=== PATIENT | male | born 1960 | race Caucasian/White ===

== ENCOUNTER 2020-04-16 14:15 | Outpatient (CLI) | payer OTHER, SELFPAY ==
[2020-04-16 14:32] LABS: Basophils Absolute Auto 0.08 K/mm3 (0.00-0.10); Basophils Percent Auto 1.2 % (0.0-1.0); Eosinophils Absolute Auto 0.26 K/mm3 (0.02-0.50); Eosinophils Percent Auto 3.9 % (1.0-6.0); Hematocrit 43.9 % (40.0-54.0); Hemoglobin 14.4 g/dL (14.0-18.0); Immature Granulocyte Absolute 0.03 K/mm3 (0.00-0.00); Immature Granulocyte Percent A 0.4 % (0.0-0.0); Lymphocytes Absolute Auto 1.13 K/mm3 (1.10-4.50); Lymphocytes Percent Auto 16.8 % (18.0-42.0); Mean Corpuscular HGB Conc 32.8 g/dL (32.0-36.0); Mean Corpuscular Hemoglobin 31.7 pg (27.0-31.0); Mean Corpuscular Volume 96.7 fL (78.0-102.0); Mean Platelet Volume 11.7 fl (8.7-11.0); Monocytes Absolute Auto 0.62 K/mm3 (0.10-0.90); Monocytes Percent Auto 9.2 % (2.0-11.0); Neutrophils Absolute Auto 4.6 K/mm3 (1.7-7.2); Neutrophils Percent Auto 68.5 % (50.0-70.0); Platelet Count Result 155 K/mm3 (150-420); Red Blood Count 4.54 M/mm3 (4.70-6.10); Red Cell Distribution Width 13.2 % (11.6-14.4); White Blood Count 6.7 K/mm3 (4.8-10.8)
[2020-04-16 14:34] LABS: Add Urine Microscopic? YES; Bilirubin Urine Negative (Negative); Blood Urine Negative (Negative); Color Urine Yellow (Yellow); Glucose Urine UA Negative (Negative); Ketones Urine Negative (Negative); Leukocyte Esterase Ur 1+ LEU/UL (Negative); Nitrate Urine Positive (Negative); Protein Urine 2+ (Negative); Specific Grav Ur >= 1.030 (1.010-1.020); Urobilinogen Urine 0.2 mg/dL (0.2-1.0); pH Urine 5.5 (5.0-8.0)
[2020-04-16 14:41] LABS: Appearance Urine Sl Cloudy (Clear); RBC Urine None seen /hpf (0-2); Squamous Epithelial Cell Urine Few /hpf (Few)
[2020-04-16 14:42] LABS: Bacteria Urine 1+ /hpf
[2020-04-16 14:49] LABS: Creatinine Urine 244.78 mg/dL (40-278)
[2020-04-16 14:50] LABS: Microalbumin Urine Random 386.9 mg/L
[2020-04-16 15:28] LABS: Alanine Aminotransferase 49 U/L (16-63); Albumin Level 3.4 g/dL (3.4-5.0); Alkaline Phosphatase 90 U/L (46-116); Bilirubin,Total 0.6 mg/dL (0.00-1.00); Blood Urea Nitrogen 28 mg/dL (7-18); Calcium 8.8 mg/dL (8.5-10.1); Carbon Dioxide 25 mmol/L (21-32); Chloride 108 mmol/L (98-108); Estimated Glomerular Filt Rate 39; Glucose 91 mg/dL (70-99); Osmolality Calculated 297 mOsm/kg (285-295); Phosphorus 3.6 mg/dL (2.6-4.7); Prostate Specific Antigen 0.5 ng/mL (< OR = 4.0); Sodium 141 mmol/L (136-145); Thyroid Stimulating Hormone 1.41 uIU/mL (0.36-3.74)
[2020-04-16 16:08] LABS: Anion Gap 12.9 mmol/L (7-16); Aspartate Amino Transferase 37 U/L (15-37); Potassium 4.9 mmol/L (3.5-5.1)
[2020-04-22 14:49] LABS: Parathyroid Intact 69 pg/mL (14-64)
== END 2020-04-16 14:16 | disposition home or self-care (01) ==
LOC: CHSLAB 14:19
PROVIDERS: PCP Family Medicine; Visit Provider Family Medicine
DX: N18.9 Chronic kidney disease, unspecified (principal); I12.9 Hypertensive chronic kidney disease with stage 1 through stage 4 chronic kidney disease, or unspecified chronic kidney disease; Z12.5 Encounter for screening for malignant neoplasm of prostate; E11.21 Type 2 diabetes mellitus with diabetic nephropathy
CPT/HCPCS: 36415; 80053; 81001; 82043; 83036; 83970; 84100; 84153; 84443; 85025; 87077; 87086; 87088; 87186; G0103

== ENCOUNTER 2020-06-05 10:24 | Outpatient (CLI) | payer OTHER, SELFPAY ==
--- NOTE | ~2020-06-05 | US_ITS ---
EXAMINATION: US venous doppler LE EXAM DATE: 06/05/2020 12:52 INDICATION: Right calf pain. TECHNIQUE: Multiple grayscale, color flow and Doppler images of the lower extremity deep venous syste ms bilaterally were obtained and reviewed. There is no prior study for comparison. FINDINGS: Right side: The right common femoral, femoral and profunda veins demonstrate normal color flow, respi ratory variation, augmentation and compressibility. Compressibility, color flow confirmed within the right popliteal, posterior tibial, peroneal, and greater saphenous veins. Left side: The left common femoral, femoral and profunda veins demonstrate normal color flow, respira tory variation, augmentation and compressibility. Compressibility, color flow confirmed within the l eft popliteal, posterior tibial, peroneal, and greater saphenous veins. IMPRESSION: 1. No lower extremity deep venous thrombosis bilaterally. Reviewed, dictated and finalized at location A.
[2020-06-05 10:34] LABS: Basophils Absolute Auto 0.06 K/mm3 (0.00-0.10); Basophils Percent Auto 0.8 % (0.0-1.0); Eosinophils Absolute Auto 0.22 K/mm3 (0.02-0.50); Eosinophils Percent Auto 2.9 % (1.0-6.0); Hematocrit 44.5 % (40.0-54.0); Hemoglobin 14.2 g/dL (14.0-18.0); Immature Granulocyte Absolute 0.05 K/mm3 (0.00-0.00); Immature Granulocyte Percent A 0.7 % (0.0-0.0); Lymphocytes Absolute Auto 0.92 K/mm3 (1.10-4.50); Lymphocytes Percent Auto 12.2 % (18.0-42.0); Mean Corpuscular HGB Conc 31.9 g/dL (32.0-36.0); Mean Corpuscular Hemoglobin 31.2 pg (27.0-31.0); Mean Corpuscular Volume 97.8 fL (78.0-102.0); Mean Platelet Volume 11.9 fl (8.7-11.0); Monocytes Absolute Auto 0.86 K/mm3 (0.10-0.90); Monocytes Percent Auto 11.4 % (2.0-11.0); Neutrophils Absolute Auto 5.4 K/mm3 (1.7-7.2); Platelet Count Result 159 K/mm3 (150-420); Red Blood Count 4.55 M/mm3 (4.70-6.10); Red Cell Distribution Width 13.3 % (11.6-14.4); White Blood Count 7.5 K/mm3 (4.8-10.8)
[2020-06-05 10:50] LABS: Alanine Aminotransferase 34 U/L (16-63); Albumin Level 3.5 g/dL (3.4-5.0); Alkaline Phosphatase 95 U/L (46-116); Anion Gap 8 mmol/L (8-16); Aspartate Amino Transferase 24 U/L (15-37); Bilirubin,Total 0.7 mg/dL (0.00-1.00); Blood Urea Nitrogen 29 mg/dL (7-18); Calcium 8.8 mg/dL (8.5-10.1); Carbon Dioxide 27 mmol/L (21-32); Chloride 106 mmol/L (98-108); Estimated Glomerular Filt Rate 34; Glucose 111 mg/dL (70-99); Osmolality Calculated 298 mOsm/kg (285-295); Potassium 4.5 mmol/L (3.5-5.1); Sodium 141 mmol/L (136-145); Total Protein 7.9 g/dL (6.4-8.2)
[2020-06-05 11:08] LABS: D Dimer 1.49 mg/L (0.19-0.50)
== END 2020-06-05 10:25 | disposition home or self-care (01) ==
PROVIDERS: PCP Family Medicine; Visit Provider Family Medicine
DX: M79.661 Pain in right lower leg (principal); R60.0 Localized edema; I10 Essential (primary) hypertension
CPT/HCPCS: 36415; 80053; 85025; 85380; 93970

== ENCOUNTER 2020-08-24 13:37 | Outpatient (CLI) | payer OTHER, SELFPAY ==
[2020-08-24 13:56] LABS: Basophils Absolute Auto 0.02 K/mm3 (0.00-0.10); Basophils Percent Auto 0.4 % (0.0-1.0); Eosinophils Absolute Auto 0.19 K/mm3 (0.02-0.50); Eosinophils Percent Auto 3.4 % (1.0-6.0); Hematocrit 41.4 % (40.0-54.0); Immature Granulocyte Absolute 0.03 K/mm3 (0.00-0.00); Immature Granulocyte Percent A 0.5 % (0.0-0.0); Immature Platelet Fraction Pct 3.8 % (1.0-7.0); Lymphocytes Absolute Auto 0.74 K/mm3 (1.10-4.50); Lymphocytes Percent Auto 13.3 % (18.0-42.0); Mean Corpuscular HGB Conc 31.4 g/dL (32.0-36.0); Mean Corpuscular Volume 98.6 fL (78.0-102.0); Mean Platelet Volume 11.6 fl (8.7-11.0); Monocytes Percent Auto 10.8 % (2.0-11.0); Neutrophils Percent Auto 71.6 % (50.0-70.0); Platelet Count Result 129 K/mm3 (150-420); White Blood Count 5.6 K/mm3 (4.8-10.8)
[2020-08-24 14:08] LABS: Alanine Aminotransferase 50 U/L (16-63); Albumin Level 3.1 g/dL (3.4-5.0); Alkaline Phosphatase 75 U/L (46-116); Anion Gap 9 mmol/L (8-16); Aspartate Amino Transferase 34 U/L (15-37); Bilirubin,Total 0.5 mg/dL (0.00-1.00); Blood Urea Nitrogen 32 mg/dL (7-18); Calcium 8.7 mg/dL (8.5-10.1); Carbon Dioxide 25 mmol/L (21-32); Chloride 108 mmol/L (98-108); Estimated Glomerular Filt Rate 35; Glucose 87 mg/dL (70-99); Osmolality Calculated 299 mOsm/kg (285-295); Potassium 4.6 mmol/L (3.5-5.1); Sodium 142 mmol/L (136-145); Total Protein 7.1 g/dL (6.4-8.2)
[2020-08-24 14:10] LABS: D Dimer 1.22 mg/L (0.19-0.50)
[2020-08-24 15:21] LABS: Hemoglobin A1C 6.2 % (<5.7)
== END 2020-08-24 13:38 | disposition home or self-care (01) ==
PROVIDERS: PCP Family Medicine; Visit Provider Family Medicine
DX: M79.661 Pain in right lower leg (principal); I10 Essential (primary) hypertension; R60.0 Localized edema; E11.40 Type 2 diabetes mellitus with diabetic neuropathy, unspecified
CPT/HCPCS: 36415; 80053; 83036; 85025; 85055; 85380

== ENCOUNTER 2020-08-25 08:36 | Outpatient (CLI) | payer OTHER, SELFPAY ==
--- NOTE | ~2020-08-25 | US_ITS ---
EXAMINATION: US venous doppler [facility] DATE: 08/25/2020 09:07 INDICATION: Lower limb pain and swelling TECHNIQUE: Grayscale ultrasound images without and with compression and Doppler ultrasound images of the bilateral lower extremity veins were obtained. COMPARISON: None. FINDINGS: The visualized portions of right common femoral vein, profunda (deep) femoral vein, femoral vein, pop liteal vein, posterior tibial veins, peroneal veins, gastrocnemius vein and greater saphenous vein ou tflow are patent. The visualized portions of left common femoral vein, profunda femoral vein, femoral vein, popliteal v ein, posterior tibial veins, peroneal veins, gastrocnemius vein and greater saphenous vein outflow ar e patent. IMPRESSION: 1. No deep venous thrombosis in either lower limb. Reviewed, dictated and finalized at location A. 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
== END 2020-08-25 08:37 | disposition home or self-care (01) ==
PROVIDERS: PCP Family Medicine; Visit Provider Family Medicine
DX: M79.605 Pain in left leg (principal); M79.604 Pain in right leg
CPT/HCPCS: 93970

== ENCOUNTER 2020-09-04 11:47 | Outpatient (CLI) | payer OTHER, SELFPAY ==
[2020-09-04 12:15] LABS: Basophils Absolute Auto 0.03 K/mm3 (0.00-0.10); Basophils Percent Auto 0.6 % (0.0-1.0); Eosinophils Absolute Auto 0.19 K/mm3 (0.02-0.50); Eosinophils Percent Auto 3.8 % (1.0-6.0); Hematocrit 41.3 % (40.0-54.0); Hemoglobin 13.1 g/dL (14.0-18.0); Immature Granulocyte Absolute 0.04 K/mm3 (0.00-0.00); Immature Granulocyte Percent A 0.8 % (0.0-0.0); Mean Corpuscular HGB Conc 31.7 g/dL (32.0-36.0); Mean Corpuscular Volume 97.9 fL (78.0-102.0); Mean Platelet Volume 11.3 fl (8.7-11.0); Monocytes Absolute Auto 0.63 K/mm3 (0.10-0.90); Monocytes Percent Auto 12.6 % (2.0-11.0); Neutrophils Absolute Auto 3.2 K/mm3 (1.7-7.2); Neutrophils Percent Auto 64.2 % (50.0-70.0); Platelet Count Result 178 K/mm3 (150-420); Red Blood Count 4.22 M/mm3 (4.70-6.10); Red Cell Distribution Width 13.7 % (11.6-14.4)
--- NOTE | 2020-09-04 12:30 | ECG_ITS ---
Measurements Intervals [place] Rate: 75 P: 53 ME: 183 QRS: 111 QRSD: 110 T: 48 QT: 391 QTc: 437 Interpretive Statements SINUS RHYTHM INTRAVENTRICULAR CONDUCTION DELAY LOW QRS VOLTAGE IN PRECORDIAL LEADS ANTEROSEPTAL INFARCT, AGE INDETERMINATE HIGH LATERAL INFARCT, AGE INDETERMINATE ABNORMAL ECG Electronically Signed On 09-04-2020 13:00:36 [employer] by Victor Manuel Penn D.O.
[2020-09-04 13:16] LABS: Hemoglobin A1C 5.8 % (<5.7)
[2020-09-04 14:11] LABS: Alanine Aminotransferase 51 U/L (16-63); Albumin Level 3.3 g/dL (3.4-5.0); Alkaline Phosphatase 92 U/L (46-116); Anion Gap 6 mmol/L (8-16); Aspartate Amino Transferase 33 U/L (15-37); Bilirubin,Total 0.5 mg/dL (0.00-1.00); Blood Urea Nitrogen 26 mg/dL (7-18); Calcium 8.8 mg/dL (8.5-10.1); Carbon Dioxide 26 mmol/L (21-32); Chloride 108 mmol/L (98-108); Cholesterol 136 mg/dL (0-200); Estimated Glomerular Filt Rate 39; Ferritin 159 ng/mL (26-388); Glucose 99 mg/dL (70-99); HDL Direct 49 mg/dL (40-60); Iron 89 ug/dL (65-175); LDL Cholesterol Calculated 65 mg/dL (<130); Osmolality Calculated 294 mOsm/kg (285-295); Percent Iron Saturation 28 % (12-57); Potassium 5.2 mmol/L (3.5-5.1); Sodium 140 mmol/L (136-145); Thyroid Stimulating Hormone 1.75 uIU/mL (0.36-3.74); Total Protein 6.8 g/dL (6.4-8.2); Triglycerides 112 mg/dL (0-150); Vitamin B12 498 pg/mL (193-986)
[2020-09-08 13:08] LABS: Parathyroid Intact 83 pg/mL (14-64); Vitamin D 25 Hydroxy 17 ng/mL (30-100)
== END 2020-09-04 11:48 | disposition home or self-care (01) ==
LOC: CHSLAB 11:52
PROVIDERS: PCP Family Medicine
DX: E66.01 Morbid (severe) obesity due to excess calories (principal); G47.33 Obstructive sleep apnea (adult) (pediatric); E78.5 Hyperlipidemia, unspecified; I10 Essential (primary) hypertension; I50.9 Heart failure, unspecified; E11.65 Type 2 diabetes mellitus with hyperglycemia; Z79.4 Long term (current) use of insulin; M17.0 Bilateral primary osteoarthritis of knee
CPT/HCPCS: 36415; 80053; 80061; 82306; 82607; 82728; 83036; 83540; 83550; 83970; 84443; 85025; 93005

== ENCOUNTER 2020-09-22 12:16 | Outpatient (CLI) | payer OTHER, SELFPAY ==
[2020-09-22 13:11] LABS: Anion Gap 8 mmol/L (8-16); Blood Urea Nitrogen 24 mg/dL (7-18); Calcium 8.9 mg/dL (8.5-10.1); Carbon Dioxide 28 mmol/L (21-32); Chloride 105 mmol/L (98-108); Estimated Glomerular Filt Rate 38; Glucose 103 mg/dL (70-99); Osmolality Calculated 296 mOsm/kg (285-295); Potassium 4.5 mmol/L (3.5-5.1); Sodium 141 mmol/L (136-145)
== END 2020-09-22 12:17 | disposition home or self-care (01) ==
LOC: CHSLAB 12:18
PROVIDERS: PCP Family Medicine; Visit Provider Family Medicine
DX: E87.5 Hyperkalemia (principal)
CPT/HCPCS: 36415; 80048

== ENCOUNTER 2020-11-04 12:22 | Outpatient (CLI) | payer OTHER, SELFPAY ==
[2020-11-04 13:33] LABS: Anion Gap 8 mmol/L (8-16); Blood Urea Nitrogen 37 mg/dL (7-18); Calcium 8.7 mg/dL (8.5-10.1); Carbon Dioxide 30 mmol/L (21-32); Chloride 105 mmol/L (98-108); Estimated Glomerular Filt Rate 29; Glucose 168 mg/dL (70-99); Osmolality Calculated 308 mOsm/kg (285-295); Potassium 4.5 mmol/L (3.5-5.1); Sodium 143 mmol/L (136-145)
== END 2020-11-04 12:23 | disposition home or self-care (01) ==
PROVIDERS: PCP Family Medicine
DX: I50.42 Chronic combined systolic (congestive) and diastolic (congestive) heart failure (principal); I11.9 Hypertensive heart disease without heart failure; Z95.5 Presence of coronary angioplasty implant and graft; I25.118 Atherosclerotic heart disease of native coronary artery with other forms of angina pectoris; E11.40 Type 2 diabetes mellitus with diabetic neuropathy, unspecified; E11.8 Type 2 diabetes mellitus with unspecified complications; R60.0 Localized edema
CPT/HCPCS: 36415; 80048

== ENCOUNTER 2020-12-04 14:02 | Outpatient (CLI) | payer OTHER, SELFPAY ==
[2020-12-04 14:16] LABS: Basophils Absolute Auto 0.05 K/mm3 (0.00-0.10); Basophils Percent Auto 0.7 % (0.0-1.0); Eosinophils Absolute Auto 0.16 K/mm3 (0.02-0.50); Eosinophils Percent Auto 2.1 % (1.0-6.0); Hemoglobin 13.8 g/dL (14.0-18.0); Immature Granulocyte Absolute 0.03 K/mm3 (0.00-0.00); Immature Granulocyte Percent A 0.4 % (0.0-0.0); Lymphocytes Absolute Auto 0.95 K/mm3 (1.10-4.50); Lymphocytes Percent Auto 12.7 % (18.0-42.0); Mean Corpuscular HGB Conc 32.1 g/dL (32.0-36.0); Mean Corpuscular Hemoglobin 30.7 pg (27.0-31.0); Mean Corpuscular Volume 95.6 fL (78.0-102.0); Mean Platelet Volume 11.6 fl (8.7-11.0); Monocytes Absolute Auto 0.72 K/mm3 (0.10-0.90); Monocytes Percent Auto 9.7 % (2.0-11.0); Neutrophils Absolute Auto 5.6 K/mm3 (1.7-7.2); Neutrophils Percent Auto 74.4 % (50.0-70.0); Platelet Count Result 180 K/mm3 (150-420); Red Cell Distribution Width 13.5 % (11.6-14.4); White Blood Count 7.5 K/mm3 (4.8-10.8)
[2020-12-04 14:42] LABS: Hemoglobin A1C 6.7 % (<5.7)
[2020-12-04 14:47] LABS: Anion Gap 10 mmol/L (8-16); Blood Urea Nitrogen 37 mg/dL (7-18); Calcium 8.6 mg/dL (8.5-10.1); Carbon Dioxide 25 mmol/L (21-32); Chloride 107 mmol/L (98-108); Estimated Glomerular Filt Rate 33; Glucose 125 mg/dL (70-99); Osmolality Calculated 303 mOsm/kg (285-295); Potassium 4.9 mmol/L (3.5-5.1); Sodium 142 mmol/L (136-145); Uric Acid 6.2 mg/dL (3.5-7.2)
== END 2020-12-04 14:03 | disposition home or self-care (01) ==
PROVIDERS: PCP Family Medicine
DX: E11.40 Type 2 diabetes mellitus with diabetic neuropathy, unspecified (principal); M10.071 Idiopathic gout, right ankle and foot; I50.42 Chronic combined systolic (congestive) and diastolic (congestive) heart failure
CPT/HCPCS: 36415; 80048; 83036; 84550; 85025

== ENCOUNTER 2021-05-10 11:18 | Outpatient (CLI) | payer OTHER, SELFPAY ==
[2021-05-10 11:37] LABS: Add Urine Microscopic? YES; Appearance Urine Clear (Clear); Basophils Absolute Auto 0.08 K/mm3 (0.00-0.10); Basophils Percent Auto 1.2 % (0.0-1.0); Bilirubin Urine Negative (Negative); Blood Urine Negative (Negative); Color Urine Light Yellow (Yellow); Eosinophils Absolute Auto 0.42 K/mm3 (0.02-0.50); Eosinophils Percent Auto 6.5 % (1.0-6.0); Glucose Urine UA 2+ (Negative); Hematocrit 45.7 % (40.0-54.0); Hemoglobin 14.3 g/dL (14.0-18.0); Immature Granulocyte Absolute 0.03 K/mm3 (0.00-0.00); Immature Granulocyte Percent A 0.5 % (0.0-0.0); Ketones Urine Negative (Negative); Leukocyte Esterase Ur Trace (Negative); Lymphocytes Absolute Auto 1.24 K/mm3 (1.10-4.50); Lymphocytes Percent Auto 19.3 % (18.0-42.0); Mean Corpuscular HGB Conc 31.3 g/dL (32.0-36.0); Mean Corpuscular Hemoglobin 30.2 pg (27.0-31.0); Mean Corpuscular Volume 96.6 fL (78.0-102.0); Mean Platelet Volume 12.2 fl (8.7-11.0); Monocytes Absolute Auto 0.71 K/mm3 (0.10-0.90); Monocytes Percent Auto 11.1 % (2.0-11.0); Neutrophils Absolute Auto 3.9 K/mm3 (1.7-7.2); Neutrophils Percent Auto 61.4 % (50.0-70.0); Nitrate Urine Negative (Negative); Platelet Count Result 150 K/mm3 (150-420); Protein Urine Negative (Negative); Red Blood Count 4.73 M/mm3 (4.70-6.10); Red Cell Distribution Width 14.2 % (11.6-14.4); Specific Grav Ur <= 1.005 (1.010-1.020); Urobilinogen Urine 0.2 mg/dL (0.2-1.0); White Blood Count 6.4 K/mm3 (4.8-10.8); pH Urine 5.5 (5.0-8.0)
[2021-05-10 11:45] LABS: Bacteria Urine None seen /hpf; RBC Urine None seen /hpf (0-2); Squamous Epithelial Cell Urine Rare /hpf (Few); WBC Urine 0-3 /hpf (0-3)
[2021-05-10 12:04] LABS: Hemoglobin A1C 6.9 % (<5.7)
[2021-05-10 12:16] LABS: Creatinine Urine 27.41 mg/dL (40-278); MALB Creatinine Ratio 47.4 mg/g (0-30); Microalbumin Urine Random < 13.0 mg/L
[2021-05-10 12:49] LABS: Alanine Aminotransferase 56 U/L (16-63); Albumin Level 3.3 g/dL (3.4-5.0); Alkaline Phosphatase 97 U/L (46-116); Anion Gap 9 mmol/L (8-16); Aspartate Amino Transferase 53 U/L (15-37); Bilirubin,Total 0.6 mg/dL (0.00-1.00); Blood Urea Nitrogen 41 mg/dL (7-18); Calcium 8.7 mg/dL (8.5-10.1); Carbon Dioxide 27 mmol/L (21-32); Chloride 107 mmol/L (98-108); Estimated Glomerular Filt Rate 30; Glucose 109 mg/dL (70-99); Osmolality Calculated 307 mOsm/kg (285-295); Potassium 5.2 mmol/L (3.5-5.1); Prostate Specific Antigen 0.5 ng/mL (< OR = 4.0); Sodium 143 mmol/L (136-145); Total Protein 7.3 g/dL (6.4-8.2); Uric Acid 8.6 mg/dL (3.5-7.2)
[2021-05-10 13:19] LABS: Thyroid Stimulating Hormone 1.56 uIU/mL (0.36-3.74)
== END 2021-05-10 11:19 | disposition home or self-care (01) ==
LOC: CHSLAB 11:21
PROVIDERS: PCP Family Medicine; Visit Provider Family Medicine
DX: E11.9 Type 2 diabetes mellitus without complications (principal); N18.9 Chronic kidney disease, unspecified; Z12.5 Encounter for screening for malignant neoplasm of prostate
CPT/HCPCS: 36415; 80053; 81001; 82043; 83036; 84153; 84443; 84550; 85025; G0103

== ENCOUNTER 2021-11-16 15:39 | Outpatient (CLI) | payer OTHER, SELFPAY ==
[2021-11-16 16:43] LABS: Basophils Absolute Auto 0.05 K/mm3 (0.00-0.10); Basophils Percent Auto 0.8 % (0.0-1.0); Eosinophils Absolute Auto 0.18 K/mm3 (0.02-0.50); Eosinophils Percent Auto 2.8 % (1.0-6.0); Hematocrit 45.7 % (40.0-54.0); Hemoglobin 14.3 g/dL (14.0-18.0); Immature Granulocyte Absolute 0.05 K/mm3 (0.00-0.00); Immature Granulocyte Percent A 0.8 % (0.0-0.0); Lymphocytes Absolute Auto 1.05 K/mm3 (1.10-4.50); Lymphocytes Percent Auto 16.4 % (18.0-42.0); Mean Corpuscular HGB Conc 31.3 g/dL (32.0-36.0); Mean Corpuscular Hemoglobin 30.8 pg (27.0-31.0); Mean Corpuscular Volume 98.3 fL (78.0-102.0); Mean Platelet Volume 12.7 fl (8.7-11.0); Monocytes Absolute Auto 0.72 K/mm3 (0.10-0.90); Monocytes Percent Auto 11.3 % (2.0-11.0); Neutrophils Absolute Auto 4.3 K/mm3 (1.7-7.2); Neutrophils Percent Auto 67.9 % (50.0-70.0); Platelet Count Result 157 K/mm3 (150-420); Red Blood Count 4.65 M/mm3 (4.70-6.10); Red Cell Distribution Width 15.3 % (11.6-14.4); White Blood Count 6.4 K/mm3 (4.8-10.8)
[2021-11-16 17:01] LABS: Creatinine Urine 154.43 mg/dL (40-278)
[2021-11-16 17:12] LABS: Anion Gap 9 mmol/L (8-16); Blood Urea Nitrogen 25 mg/dL (7-18); Calcium 8.4 mg/dL (8.5-10.1); Carbon Dioxide 25 mmol/L (21-32); Chloride 109 mmol/L (98-108); Estimated Glomerular Filt Rate 39; Glucose 121 mg/dL (70-99); Osmolality Calculated 301 mOsm/kg (285-295); Potassium 5.1 mmol/L (3.5-5.1); Sodium 143 mmol/L (136-145); Uric Acid 5.9 mg/dL (3.5-7.2)
[2021-11-16 17:20] LABS: MALB Creatinine Ratio 87.5 mg/g (0-30); Microalbumin Urine Random 135.2 mg/L
== END 2021-11-16 15:40 | disposition home or self-care (01) ==
LOC: CHSLAB 15:40
PROVIDERS: PCP Family Medicine; Visit Provider Family Medicine
DX: E11.40 Type 2 diabetes mellitus with diabetic neuropathy, unspecified (principal); I10 Essential (primary) hypertension; M10.071 Idiopathic gout, right ankle and foot
CPT/HCPCS: 36415; 80048; 82043; 83036; 84550; 85025

== ENCOUNTER 2022-02-15 12:15 | Outpatient (CLI) | payer OTHER, SELFPAY ==
[2022-02-15 12:28] LABS: Basophils Absolute Auto 0.06 K/mm3 (0.00-0.10); Basophils Percent Auto 0.8 % (0.0-1.0); Eosinophils Absolute Auto 0.28 K/mm3 (0.02-0.50); Eosinophils Percent Auto 3.6 % (1.0-6.0); Hemoglobin 15.7 g/dL (14.0-18.0); Immature Granulocyte Absolute 0.05 K/mm3 (0.00-0.00); Immature Granulocyte Percent A 0.6 % (0.0-0.0); Lymphocytes Absolute Auto 1.45 K/mm3 (1.10-4.50); Lymphocytes Percent Auto 18.8 % (18.0-42.0); Mean Corpuscular HGB Conc 32.7 g/dL (32.0-36.0); Mean Corpuscular Hemoglobin 32.1 pg (27.0-31.0); Mean Corpuscular Volume 98.2 fL (78.0-102.0); Mean Platelet Volume 12.3 fl (8.7-11.0); Monocytes Absolute Auto 0.82 K/mm3 (0.10-0.90); Monocytes Percent Auto 10.6 % (2.0-11.0); Neutrophils Absolute Auto 5.1 K/mm3 (1.7-7.2); Neutrophils Percent Auto 65.6 % (50.0-70.0); Platelet Count Result 146 K/mm3 (150-420); Red Blood Count 4.89 M/mm3 (4.70-6.10); Red Cell Distribution Width 12.4 % (11.6-14.4); White Blood Count 7.7 K/mm3 (4.8-10.8)
[2022-02-15 12:37] LABS: Hemoglobin A1C 6.2 % (<5.7)
[2022-02-15 12:59] LABS: Alanine Aminotransferase 26 U/L (16-63); Albumin Level 3.3 g/dL (3.4-5.0); Alkaline Phosphatase 105 U/L (46-116); Anion Gap 7 mmol/L (8-16); Aspartate Amino Transferase 23 U/L (15-37); Bilirubin,Total 0.4 mg/dL (0.00-1.00); Blood Urea Nitrogen 49 mg/dL (7-18); Calcium 8.8 mg/dL (8.5-10.1); Carbon Dioxide 29 mmol/L (21-32); Chloride 104 mmol/L (98-108); Estimated Glomerular Filt Rate 27; Glucose 114 mg/dL (70-99); Osmolality Calculated 304 mOsm/kg (285-295); Sodium 140 mmol/L (136-145); Total Protein 7.1 g/dL (6.4-8.2)
== END 2022-02-15 12:16 | disposition home or self-care (01) ==
LOC: CHSLAB 12:18
PROVIDERS: PCP Family Medicine; Visit Provider Family Medicine
DX: E11.40 Type 2 diabetes mellitus with diabetic neuropathy, unspecified (principal)
CPT/HCPCS: 36415; 80053; 83036; 85025

== ENCOUNTER 2022-06-06 15:57 | Outpatient (CLI) | payer OTHER, SELFPAY ==
[2022-06-06 16:21] LABS: Add Urine Microscopic? YES; Appearance Urine Clear (Clear); Bilirubin Urine Negative (Negative); Blood Urine Negative (Negative); Color Urine Light Yellow (Yellow); Glucose Urine UA 3+ (Negative); Ketones Urine Trace (Negative); Leukocyte Esterase Ur Trace (Negative); Nitrate Urine Positive (Negative); Protein Urine Negative (Negative); Specific Grav Ur 1.015 (1.010-1.020); Urobilinogen Urine 0.2 mg/dL (0.2-1.0); pH Urine 5.5 (5.0-8.0)
[2022-06-06 16:31] LABS: Basophils Absolute Auto 0.08 K/mm3 (0.00-0.10); Eosinophils Percent Auto 3.9 % (1.0-6.0); Hematocrit 51.6 % (40.0-54.0); Hemoglobin 16.6 g/dL (14.0-18.0); Immature Granulocyte Absolute 0.03 K/mm3 (0.00-0.00); Immature Granulocyte Percent A 0.4 % (0.0-0.0); Lymphocytes Absolute Auto 1.42 K/mm3 (1.10-4.50); Lymphocytes Percent Auto 18.5 % (18.0-42.0); Mean Corpuscular HGB Conc 32.2 g/dL (32.0-36.0); Mean Corpuscular Hemoglobin 31.3 pg (27.0-31.0); Mean Corpuscular Volume 97.4 fL (78.0-102.0); Mean Platelet Volume 11.9 fl (8.7-11.0); Monocytes Absolute Auto 0.79 K/mm3 (0.10-0.90); Monocytes Percent Auto 10.3 % (2.0-11.0); Neutrophils Absolute Auto 5.1 K/mm3 (1.7-7.2); Neutrophils Percent Auto 65.9 % (50.0-70.0); Platelet Count Result 204 K/mm3 (150-420); Red Cell Distribution Width 13.1 % (11.6-14.4); White Blood Count 7.7 K/mm3 (4.8-10.8)
[2022-06-06 16:37] LABS: Bacteria Urine 4+ /hpf; RBC Urine 0-2 /hpf (0-2); Squamous Epithelial Cell Urine Few /hpf (Few); WBC Clumps Urine Present /hpf
[2022-06-06 17:20] LABS: Alanine Aminotransferase 21 U/L (16-63); Albumin Level 3.3 g/dL (3.4-5.0); Alkaline Phosphatase 122 U/L (46-116); Anion Gap 5 mmol/L (8-16); Aspartate Amino Transferase 21 U/L (15-37); Bilirubin,Total 0.4 mg/dL (0.00-1.00); Blood Urea Nitrogen 30 mg/dL (7-18); Calcium 8.6 mg/dL (8.5-10.1); Carbon Dioxide 28 mmol/L (21-32); Chloride 104 mmol/L (98-108); Estimated Glomerular Filt Rate 33; Glucose 98 mg/dL (70-99); Osmolality Calculated 290 mOsm/kg (285-295); Potassium 5.4 mmol/L (3.5-5.1); Prostate Specific Antigen 1.7 ng/mL (< OR = 4.0); Sodium 137 mmol/L (136-145); Thyroid Stimulating Hormone 1.28 uIU/mL (0.36-3.74); Total Protein 7.3 g/dL (6.4-8.2)
[2022-06-08 16:04] LABS: Creatinine Urine 110.54 mg/dL (40-278); MALB Creatinine Ratio 67.7 mg/g (0-30); Microalbumin Urine Random 74.9 mg/L
== END 2022-06-06 15:58 | disposition home or self-care (01) ==
LOC: CHSLAB 15:58
PROVIDERS: PCP Family Medicine; Visit Provider Family Medicine
DX: E11.40 Type 2 diabetes mellitus with diabetic neuropathy, unspecified (principal); Z12.5 Encounter for screening for malignant neoplasm of prostate
CPT/HCPCS: 36415; 80053; 81001; 82043; 83036; 84153; 84443; 85025; G0103

== ENCOUNTER 2022-06-23 14:28 | Outpatient (CLI) | payer OTHER, SELFPAY ==
[2022-06-23 15:16] LABS: Anion Gap 9 mmol/L (8-16); Blood Urea Nitrogen 29 mg/dL (7-18); Calcium 8.5 mg/dL (8.5-10.1); Carbon Dioxide 21 mmol/L (21-32); Chloride 111 mmol/L (98-108); Estimated Glomerular Filt Rate 43; Glucose 113 mg/dL (70-99); Osmolality Calculated 298 mOsm/kg (285-295); Potassium 4.7 mmol/L (3.5-5.1); Sodium 141 mmol/L (136-145)
== END 2022-06-23 14:29 | disposition home or self-care (01) ==
LOC: CHSLAB 14:30
PROVIDERS: PCP Family Medicine; Visit Provider Family Medicine
DX: E87.5 Hyperkalemia (principal)
CPT/HCPCS: 36415; 80048

== ENCOUNTER 2022-07-22 11:41 | Outpatient (CLI) | payer OTHER, SELFPAY ==
[2022-07-22 12:11] LABS: Add Urine Microscopic? YES; Appearance Urine Clear (Clear); Bilirubin Urine Negative (Negative); Blood Urine Negative (Negative); Color Urine Yellow (Yellow); Glucose Urine UA 3+ (Negative); Ketones Urine Negative (Negative); Leukocyte Esterase Ur Negative (Negative); Nitrate Urine Negative (Negative); Protein Urine Trace (Negative); Specific Grav Ur >= 1.030 (1.010-1.020)
[2022-07-22 12:20] LABS: RBC Urine None seen /hpf (0-2); Squamous Epithelial Cell Urine Few /hpf (Few); WBC Urine None seen /hpf (0-3)
[2022-07-22 12:21] LABS: Bacteria Urine Trace /hpf
== END 2022-07-22 11:42 | disposition home or self-care (01) ==
LOC: CHSLAB 11:43
PROVIDERS: PCP Family Medicine; Visit Provider Family Medicine
DX: N39.0 Urinary tract infection, site not specified (principal)
CPT/HCPCS: 81001; 87086

== ENCOUNTER 2023-04-10 15:17 | Outpatient (CLI) | payer OTHER, SELFPAY ==
[2023-04-10 15:33] LABS: Basophils Absolute Auto 0.08 K/mm3 (0.00-0.10); Basophils Percent Auto 0.8 % (0.0-1.0); Eosinophils Absolute Auto 0.29 K/mm3 (0.02-0.50); Eosinophils Percent Auto 2.8 % (1.0-6.0); Hematocrit 48.2 % (40.0-54.0); Hemoglobin 16.2 g/dL (14.0-18.0); Immature Granulocyte Absolute 0.03 K/mm3 (0.00-0.00); Immature Granulocyte Percent A 0.3 % (0.0-0.0); Lymphocytes Absolute Auto 1.17 K/mm3 (1.10-4.50); Lymphocytes Percent Auto 11.2 % (18.0-42.0); Mean Corpuscular HGB Conc 33.6 g/dL (32.0-36.0); Mean Corpuscular Hemoglobin 31.7 pg (27.0-31.0); Mean Corpuscular Volume 94.3 fL (78.0-102.0); Mean Platelet Volume 11.9 fl (8.7-11.0); Monocytes Absolute Auto 1.04 K/mm3 (0.10-0.90); Neutrophils Absolute Auto 7.8 K/mm3 (1.7-7.2); Neutrophils Percent Auto 74.9 % (50.0-70.0); Platelet Count Result 205 K/mm3 (150-420); Red Blood Count 5.11 M/mm3 (4.70-6.10); Red Cell Distribution Width 13.1 % (11.6-14.4); White Blood Count 10.4 K/mm3 (4.8-10.8)
[2023-04-10 15:57] LABS: Hemoglobin A1C 5.7 % (<5.7)
[2023-04-10 16:14] LABS: Alanine Aminotransferase 16 U/L (16-63); Albumin Level 3.1 g/dL (3.4-5.0); Alkaline Phosphatase 132 U/L (46-116); Anion Gap 13 mmol/L (8-16); Aspartate Amino Transferase 15 U/L (15-37); Bilirubin,Total 1.1 mg/dL (0.00-1.00); Blood Urea Nitrogen 17 mg/dL (7-18); CRP 5.3 mg/dL (0.0-0.9); Calcium 8.8 mg/dL (8.5-10.1); Carbon Dioxide 21 mmol/L (21-32); Chloride 105 mmol/L (98-108); Creatine Kinase 88 U/L (39-308); Estimated Glomerular Filt Rate 46; Glucose 139 mg/dL (70-99); NT Pro B Type Natriuretic Pept 1542 pg/mL (0-125); Osmolality Calculated 291 mOsm/kg (285-295); Sodium 139 mmol/L (136-145); Total Protein 7.3 g/dL (6.4-8.2); Uric Acid 6.2 mg/dL (3.5-7.2)
[2023-04-13 23:47] LABS: Methylmalonic Acid 366 nmol/L (87-318)
== END 2023-04-10 15:18 | disposition home or self-care (01) ==
LOC: CHSLAB 15:19
PROVIDERS: PCP Family Medicine; Visit Provider Nurse Practitioner Family
DX: I10 Essential (primary) hypertension (principal); E11.40 Type 2 diabetes mellitus with diabetic neuropathy, unspecified; M79.674 Pain in right toe(s); N18.9 Chronic kidney disease, unspecified
CPT/HCPCS: 36415; 80053; 82550; 83036; 83880; 83921; 84550; 85025; 86140

== ENCOUNTER 2023-09-14 16:11 | Outpatient (CLI) | payer OTHER, SELFPAY | END 2023-09-14 16:12 | disposition home or self-care (01) | LOC: CHSLAB 16:13 | PROVIDERS: PCP Family Medicine; Visit Provider Family Medicine | DX: E11.40 Type 2 diabetes mellitus with diabetic neuropathy, unspecified (principal) | CPT/HCPCS: 36415; 83036 ==

== ENCOUNTER 2024-02-05 07:35 | Outpatient (CLI) | payer OTHER, SELFPAY ==
[2024-02-05 08:15] LABS: Basophils Absolute Auto 0.08 K/mm3 (0.00-0.10); Eosinophils Percent Auto 7.2 % (1.0-6.0); Hematocrit 46.4 % (40.0-54.0); Hemoglobin 15.1 g/dL (14.0-18.0); Immature Granulocyte Absolute 0.03 K/mm3 (0.00-0.00); Immature Granulocyte Percent A 0.4 % (0.0-0.0); Lymphocytes Absolute Auto 1.83 K/mm3 (1.10-4.50); Lymphocytes Percent Auto 21.9 % (18.0-42.0); Mean Corpuscular HGB Conc 32.5 g/dL (32-36); Mean Corpuscular Volume 95.3 fL (78.0-102.0); Mean Platelet Volume 11.7 fl (8.7-11.0); Monocytes Percent Auto 8.4 % (2.0-11.0); Neutrophils Absolute Auto 5.12 K/mm3 (1.70-7.20); Neutrophils Percent Auto 61.1 % (50.0-70.0); Platelet Count Result 182 K/mm3 (150-420); Red Blood Count 4.87 M/mm3 (4.70-6.10); Red Cell Distribution Width 13.8 % (11.6-14.4); White Blood Count 8.4 K/mm3 (4.8-10.8)
[2024-02-05 16:06] LABS: Anion Gap 10 mmol/L (4-12); Blood Urea Nitrogen 39 mg/dL (9-20); Calcium 8.7 mg/dL (8.4-10.2); Carbon Dioxide 20 mmol/L (22-30); Chloride 106 mmol/L (98-107); Estimated Glomerular Filt Rate 34; Glucose 98 mg/dL (65-110); Osmolality Calculated 291 mOsm/kg (285-295); Potassium 5.5 mmol/L (3.4-5.0); Sodium 136 mmol/L (137-145)
== END 2024-02-05 07:36 | disposition home or self-care (01) ==
LOC: CHSLAB 07:40
PROVIDERS: PCP Family Medicine; Visit Provider Family Medicine
DX: E11.40 Type 2 diabetes mellitus with diabetic neuropathy, unspecified (principal)
CPT/HCPCS: 36415; 80048; 85025

== ENCOUNTER 2024-02-15 08:55 | Outpatient (CLI) | payer OTHER, SELFPAY ==
--- NOTE | ~2024-02-15 | XR_ITS ---
AP, oblique, and lateral views of the right great toe CLINICAL HISTORY: Pain FINDINGS: No acute fracture or dislocation seen. There is mild degenerative change of the first MTP j oint and interphalangeal joint of the great toe. Soft tissues are unremarkable. IMPRESSION: Mild degenerative changes, as above. Reviewed, dictated and finalized at [facility].
--- NOTE | ~2024-02-15 | XR_ITS ---
Right ankle Technique: AP, oblique, and lateral views were obtained. Clinical History: Pain Findings: No acute fracture or dislocation is seen. Osseous alignment is anatomic. Ankle mortise and other visualized joint spaces are preserved. Plantar calcaneal spur present. Soft tissues are otherwi se unremarkable. Impression: No acute abnormality. Plantar calcaneal spur. Reviewed, dictated and finalized at [facility]. Impression: No acute abnormality. Plantar calcaneal spur.
--- NOTE | ~2024-02-15 | XR_ITS ---
Right foot Technique: AP, oblique, and lateral views were obtained. Clinical History: Pain Findings: No acute fracture or dislocation is seen. Osseous alignment is anatomic. There is mild dege nerative change of the first MTP joint and interphalangeal joint of the great toe. Soft tissues are u nremarkable. Impression: Mild degenerative changes of the great toe, as above. Reviewed, dictated and finalized at location M. Impression: Mild degenerative changes of the great toe, as above.
[2024-02-15 09:32] LABS: Basophils Absolute Auto 0.04 K/mm3 (0.00-0.10); Basophils Percent Auto 0.3 % (0.0-1.0); Eosinophils Absolute Auto 0.25 K/mm3 (0.02-0.50); Hematocrit 36.9 % (40.0-54.0); Hemoglobin 11.9 g/dL (14.0-18.0); Immature Granulocyte Absolute 0.11 K/mm3 (0.00-0.00); Immature Granulocyte Percent A 0.9 % (0.0-0.0); Mean Corpuscular HGB Conc 32.2 g/dL (32-36); Mean Corpuscular Hemoglobin 30.9 pg (27.0-31.0); Mean Corpuscular Volume 95.8 fL (78.0-102.0); Mean Platelet Volume 11.7 fl (8.7-11.0); Monocytes Absolute Auto 1.14 K/mm3 (0.10-0.90); Monocytes Percent Auto 9.1 % (2.0-11.0); Neutrophils Absolute Auto 9.98 K/mm3 (1.70-7.20); Neutrophils Percent Auto 79.7 % (50.0-70.0); Platelet Count Result 213 K/mm3 (150-420); Red Blood Count 3.85 M/mm3 (4.70-6.10); Red Cell Distribution Width 13.9 % (11.6-14.4); White Blood Count 12.5 K/mm3 (4.8-10.8)
[2024-02-15 09:43] LABS: Hemoglobin A1C 6.5 % (<5.7)
[2024-02-15 09:55] LABS: Creatinine Urine 194.76 mg/dL (40-278)
[2024-02-15 09:56] LABS: MALB Creatinine Ratio 57.5 mg/g (0-30)
[2024-02-15 10:18] LABS: Alanine Aminotransferase 25 U/L (16-63); Albumin Level 2.5 g/dL (3.4-5.0); Alkaline Phosphatase 118 U/L (46-116); Anion Gap 13 mmol/L (4-12); Aspartate Amino Transferase 35 U/L (15-37); Bilirubin,Total 1.5 mg/dL (0.00-1.00); Blood Urea Nitrogen 25 mg/dL (7-18); Calcium 8.7 mg/dL (8.5-10.1); Carbon Dioxide 24 mmol/L (21-32); Chloride 105 mmol/L (98-108); Estimated Glomerular Filt Rate 43; Glucose 100 mg/dL (70-99); Osmolality Calculated 298 mOsm/kg (285-295); Phosphorus 2.7 mg/dL (2.6-4.7); Potassium 4.5 mmol/L (3.5-5.1); Sodium 142 mmol/L (136-145); Thyroid Stimulating Hormone 2.17 uIU/mL (0.36-3.74); Total Protein 6.6 g/dL (6.4-8.2); Uric Acid 6.8 mg/dL (3.5-7.2)
== END 2024-02-15 08:56 | disposition home or self-care (01) ==
LOC: CHSLAB 08:58
PROVIDERS: PCP Family Medicine; Visit Provider Family Medicine
DX: I10 Essential (primary) hypertension (principal); N18.9 Chronic kidney disease, unspecified; E11.40 Type 2 diabetes mellitus with diabetic neuropathy, unspecified; M10.071 Idiopathic gout, right ankle and foot; M77.31 Calcaneal spur, right foot
CPT/HCPCS: 36415; 73610; 73630; 73660; 80053; 82043; 83036; 83735; 84100; 84443; 84550; 85025

== ENCOUNTER 2025-01-27 09:02 | Outpatient (CLI) | payer OTHER, SELFPAY ==
--- OUTSIDE RECORDS SUMMARY | 2025-01-27 09:15 | XMS_ITS | Referral Summary ---
Author Organization [facility] [place] [address] Address [address] [place] [address] Care Team Providers Care Nursing Program Manager Name Role Phone Jimmie Arias MD Primary Care Provide r Allergies Active Allergy Reactions Criticality Noted Date Comments Hydrocodone Vomiting Low 07/26/2022 Lorazepam Agitation,Delusions, Lucho lucinations,Mental status changes Medium 01/20/2018 Other reaction(s): Psychiatric Medications allopurinoL (ZYLOPRIM) 100 mg tabletIndication s:prevention of acute gout attack Take 1 tablet (100 mg total) by mouth fleshing machine operator before breakfast 0 Active gabapentin (NEURONTIN) 400 mg capsuleIndicatio ns:Neuropathic Pain Take 1 capsule (400 mg total) by mouth 3 (three) times a day 0 Active atorvastatin (LIPITOR) 40 mg tabletIndication s:hyperlipidemia Take 1 tablet (40 mg total) by mouth nightly 0 Active carvediloL (COREG) 25 mg tabletIndication s:Myocardial Reinfarction Prevention,hyper tension Take 1 tablet (25 mg total) by mouth 2 (two) times a day with meals 0 Active Brilinta 90 mg tabletIndication s:Myocardial Reinfarction Prevention Take 1 tablet (90 mg total) by mouth 2 (two) times a day 2 Active buPROPion XL (WELLBUTRIN XL) 450 mg 24 hr tabletIndication s:Anxiety with Depression Take 1 tablet (450 mg total) by mouth fleshing machine operator before breakfast 4 Active amoxicillin 500 mg tablet/capsuleIn dications:Prophy lactic antibiotic TAKE 4 PILLS 1 HOUR BEFORE DENTAL APPOINTMENT. 12 tablet/capsu le 4 Active Additional Information Patient not taking.Informant: Self, Reported on 03/01/2024 potassium chloride ER 20 mEq CR tabletIndication s:To take with Torsemide Take 1 tablet (20 mEq total) by mouth 2 (two) times a day 4 Active calcium carbonate (TUMS) 500 mg (200 mg elemental calcium) chewable tabletIndication s:Heartburn Take 1 tablet/chew tab (500 mg total) by mouth daily Active ergocalciferol (VITAMIN D) 50,000 unit capsuleIndicatio ns:Vitamin D Deficiency Take 1 capsule (50,000 Units total) by mouth 2 (two) times a week TAKE 1 CAP 2 X A WEEK FOR 8 WEEKS THEN FOLLOW UP WITH YOUR PCP. 16 capsule 4 Active oxyCODONE (ROXICODONE) 5 mg immediate release tabletIndication s:Pain Take 1 tablet (5 mg total) by mouth every 4 (four) hours as needed for pain (2nd line for pain. May repeat in 1 hour for uncontrolled or increasing pain. MAX 2 tablets within 4 hours.) 30 tablet 4 Active acetaminophen 500 mg capsuleIndicatio ns:Pain Take 2 capsules (1,000 mg total) by mouth every 8 (eight) hours 4 Active aspirin 81 mg enteric coated tabletIndication s:Deep Vein Thrombosis Prevention Take 1 tablet (81 mg total) by mouth 2 (two) times a day 60 tablet 4 Active empagliflozin (JARDIANCE) 10 mg tablet Take 1 tablet (10 mg total) by mouth daily 30 tablet 1 4 Active senna-docusate (PERICOLACE) 8.6-50 mgIndications:co nstipation Take 2 tablets by mouth 2 (two) times a day 60 tablet 1 4 Active Entresto 49-51 mg tablet Take 1 tablet by mouth 2 (two) times a day 4 Active traMADoL (ULTRAM) 50 mg tabletIndication s:Post-operative pain Take 1 tablet (50 mg total) by mouth every 6 (six) hours as needed for pain (1st line for pain) 30 tablet 4 Active Active Problems Problem Noted Date Diagnosed Date Osteoarthritis of right knee , unspecified osteoarthritis type 02/06/2024 Primary osteoarthritis of right knee 01/03/2024 Fall 11/01/2022 Assessment & Plan (11/04/2022 1:57 PM MACHINE TOOL OPERATOR): See weakness Assessment & Plan (11/03/2022 6:40 PM MACHINE TOOL OPERATOR): See weakness Assessment & Plan (11/02/2022 7:26 PM MACHINE TOOL OPERATOR): See weakness Assessment & Plan (11/01/2022 7:07 PM MACHINE TOOL OPERATOR): See weakness Assessment & Plan (11/01/2022 5:10 AM MACHINE TOOL OPERATOR): -Likely secondary to deconditioning and obesity, will rule out organic causes with MRI spine. -Obtain vitamin B12, recent TSH wnl. -PT/OT eval, hold doxazosin due to fall risk. RENETTA (acute kidney injury) 11/01/2022 Assessment & Plan (11/04/2022 2:01 PM MACHINE TOOL OPERATOR): BL Cr 1.7s to 1.9. On arrival Cr was 1.89 and was up to 2.03. Torsemide was hold on 11/03. Today Cr is 1.65 Assessment & Plan (11/03/2022 6:43 PM MACHINE TOOL OPERATOR): BL Cr 1.7s to 1.9. On arrival Cr was 1.89. Yesterday Cr was 2.03. Pt is dry on exam. Hold torsemide. Strict I/O. Today Cr is 1.92 Assessment & Plan (11/02/2022 7:31 PM MACHINE TOOL OPERATOR): BL Cr 1.7s to 1.9. On arrival Cr was 1.89. Today is 2.03. Pt is dry on exam. Hold torsemide. Strict I/O. CTM Assessment & Plan (11/01/2022 7:07 PM MACHINE TOOL OPERATOR): BL Cr 1.7s to 1.9. - Cr is stable - CTM Assessment & Plan (11/01/2022 5:10 AM MACHINE TOOL OPERATOR): -Cr stable, continue to monitor. Vitamin D deficiency 11/01/2022 Assessment & Plan (11/04/2022 1:56 PM MACHINE TOOL OPERATOR): vitamin D deficiency with D-25OH level of 14 on 07/04/22. - Start ergocalciferol weekly x 12 weeks Assessment & Plan (11/03/2022 6:33 PM MACHINE TOOL OPERATOR): vitamin D deficiency with D-25OH level of 14 on 07/04/22. - Start ergocalciferol weekly Assessment & Plan (11/02/2022 7:25 PM MACHINE TOOL OPERATOR): vitamin D deficiency with D-25OH level of 14 on 07/04/22. - Start ergocalciferol weekly Assessment & Plan (11/01/2022 7:05 PM MACHINE TOOL OPERATOR): vitamin D deficiency with D-25OH level of 14 on 07/04/22. - Start ergocalciferol weekly Assessment & Plan (11/01/2022 5:13 AM MACHINE TOOL OPERATOR): -Patient with prior vitamin D deficiency with D-25OH level of 14 on 07/04/22. -Obtain repeat vitamin D level. Weakness 11/01/2022 Assessment & Plan (11/04/2022 1:59 PM MACHINE TOOL OPERATOR): LE weakness since left TKA on 08/09. Since few weeks starting having BLE twitching/tremulousness, recurrent falls and worsening LE weakness. Denies back pain, numbness or tingling in the extremities, bowel/bladder incontinence, saddle anesthesia. On exam full strength on extremities. Because history of severe lumbar stenosis, spine CT was order. Showed severe spinal canal stenosis at L3-L4. NSGY was consulted and no acute neurosurgical intervention indicated at this time. Also had hip and knee XR that showed mild bilateral hip osteoarthritis and severe right knee medial compartment predominant tricompartmental osteoarthritis. - CK, SED and CRP unremarkable - Most likely is non-neuromuscular disorder due to knee OA/post left TKA . - Stop doxazosin. Could cause orthostatic hypotension - Discuss plan with PT and OT. Recommended discharge with HH with PT OT Assessment & Plan (11/03/2022 6:39 PM MACHINE TOOL OPERATOR): LE weakness since left TKA on 08/09. Since few weeks starting having BLE twitching/tremulousness, recurrent falls and worsening LE weakness. Denies back pain, numbness or tingling in the extremities, bowel/bladder incontinence, saddle anesthesia. On exam full strength on extremities. Because history of severe lumbar stenosis, spine CT was order. Showed severe spinal canal stenosis at L3-L4. NSGY was consulted and no acute neurosurgical intervention indicated at this time. Also had hip and knee XR that showed mild bilateral hip osteoarthritis and severe right knee medial compartment predominant tricompartmental osteoarthritis. - CK, SED and CRP unremarkable - Most likely is non-neuromuscular disorder due to knee pain. - If still in the hospital, spine MRI on Monday (patient has a ICD). Nevertheless the MRI could be done as an outpatient. - PT OT consult. Discuss with pt and regarding possible SNF vs HH with PT. KEYSHA is aware. Assessment & Plan (11/02/2022 7:32 PM MACHINE TOOL OPERATOR): LE weakness since left TKA on 08/09. Since few weeks starting having BLE twitching/tremulousness, recurrent falls and worsening LE weakness. Denies back pain, numbness or tingling in the extremities, bowel/bladder incontinence, saddle anesthesia. On exam full strength on extremities. Because history of severe lumbar stenosis, spine CT was order. Showed severe spinal canal stenosis at L3-L4. NSGY was consulted and no acute neurosurgical intervention indicated at this time. - Spine MRI. Most likely MRI on Monday because pt has a ICD. - CK, SED and CRP unremarkable - Most likely is non-neuromuscular disorder due to knee pain. - PT OT consult. Most likely SNF with PT/OT. Discuss with pt and regarding possible SNF. KEYSHA is aware. Assessment & Plan (11/01/2022 7:03 PM MACHINE TOOL OPERATOR): LE weakness since left TKA on 08/09. Nevertheless 2 weeks of worsening LE weakness. Unable to get up from the bed. Also unable to urinate since 24 hrs. He has a hx of severe lumbar stenosis. - NSGY consult for concern of weakness due to spine pathology. I talked with NSGY team and recommend CT spine today. - When EP evaluated patient, spine MRI. I talked with EP team - PT OT consult HTN (hypertension) 11/01/2022 Assessment & Plan (11/04/2022 1:57 PM MACHINE TOOL OPERATOR): C/w coreg. Cr improve and torsemide was restarted. Assessment & Plan (11/03/2022 6:40 PM MACHINE TOOL OPERATOR): C/w coreg. Hold torsemide due to RENETTA Assessment & Plan (11/02/2022 7:26 PM MACHINE TOOL OPERATOR): C/w coreg. Hold torsemide due to RENETTA Assessment & Plan (11/01/2022 7:06 PM MACHINE TOOL OPERATOR): C/w coreg and torsemide Knee pain 08/09/2022 Primary osteoarthritis of left knee 05/24/2022 Overview (05/24/2022): Added automatically from request for surgery [id number] ICD (implantable cardioverter-defibrillator) in place 01/15/2021 Overview (12/20/2021): Last Assessment & Plan: [facility] WNL in August. Assessment & Plan (11/03/2022 6:40 PM MACHINE TOOL OPERATOR): EP is on board regarding MRI Assessment & Plan (11/02/2022 7:25 PM MACHINE TOOL OPERATOR): Plan is spine MRI. EP is on board Assessment & Plan (11/01/2022 7:06 PM MACHINE TOOL OPERATOR): Plan is spine MRI. EP consult. Acute right heart failure 10/23/2020 Morbid obesity ([facility]/HCC) 09/03/2020 Assessment & Plan (11/04/2022 1:56 PM MACHINE TOOL OPERATOR): . Assessment & Plan (11/03/2022 6:40 PM MACHINE TOOL OPERATOR): . Assessment & Plan (11/02/2022 7:25 PM MACHINE TOOL OPERATOR): . Assessment & Plan (11/01/2022 7:05 PM MACHINE TOOL OPERATOR): . Severe obesity 05/24/2019 Primary osteoarthritis of both knees 08/17/2018 Overview (12/08/2021): severe DJD, consider TKR. severe DJD, consider TKR. Hypertensive chronic kidney disease with stage 1 through stage 4 chronic kidney disease, or unspecified chronic kidney disease 07/25/2018 Cellulitis of right lower extremity 01/26/2018 Chronic combined systolic an d diastolic congestive heart failure 01/26/2018 Overview (12/20/2021): Last Assessment & Plan: ICM: SP CABG in 2016, Chronic Combined Systolic Heart Failure. NYHA class III symptoms with an EF of 35-40%. Continue Entresto 49/51mg BID and Coreg to 6.25mg BID. Along with Jardiance 10mg daily. Asked again that he have basic lab work drawn. He states that he struggles with transportation. He was to have this drawn at his follow up with Dr. Arias in August, but he was unable to attend that appointment, per his report. Stable QUINTANILLA and per his report no edema. Continue Bumex 1mg daily. Daily weights and BP checks, log and follow up telehealth visit with Dorothy in one month, pt will have lab work and BP log to allow for titration of his GDMT. Assessment & Plan (11/04/2022 1:58 PM MACHINE TOOL OPERATOR): -Chronic without acute exacerbation, s/p ICD. Patient follows with [facility] cardiology. -Continue home GDMT with Entresto, Coreg and Jardiance. -Is euvolemic. Because increase Cr, torsemide 20mg daily was hold om 11/04. Cr improve and today Torsemide was restarted. - Strict I/O Assessment & Plan (11/03/2022 6:41 PM MACHINE TOOL OPERATOR): -Chronic without acute exacerbation, s/p ICD. [facility] follows with [facility]. -Continue home GDMT with Entresto, Coreg and Jardiance. -Is euvolemic. Because increase Cr, torsemide 20mg daily was hold. - Strict I/O Assessment & Plan (11/02/2022 7:31 PM MACHINE TOOL OPERATOR): -Chronic without acute exacerbation, s/p ICD. Patient follows with [facility]. -Continue home GDMT with Entresto, Coreg and Jardiance. -Is euvolemic. Because increase Cr, torsemide 20mg daily was hold. - Strict I/O Assessment & Plan (11/01/2022 7:07 PM MACHINE TOOL OPERATOR): -Chronic without acute exacerbation, s/p ICD. Patient follows with [facility]. -Continue home GDMT with Entresto, Coreg and Jardiance. -Continue diuresis with torsemide 20mg daily. Assessment & Plan (11/01/2022 5:08 AM MACHINE TOOL OPERATOR): -Chronic without acute exacerbation, s/p ICD. Patient follows with [facility]. -Continue home GDMT with Entresto, Coreg and Jardiance. -Continue diuresis with torsemide 20mg daily. Anxiety disorder 07/26/2017 Assessment & Plan (11/04/2022 1:59 PM MACHINE TOOL OPERATOR): -Continue home Wellbutrin. Assessment & Plan (11/03/2022 6:42 PM MACHINE TOOL OPERATOR): -Continue home Wellbutrin. Assessment & Plan (11/02/2022 7:29 PM MACHINE TOOL OPERATOR): -Continue home Wellbutrin. Assessment & Plan (11/01/2022 7:08 PM MACHINE TOOL OPERATOR): -Continue home Wellbutrin. Assessment & Plan (11/01/2022 5:06 AM MACHINE TOOL OPERATOR): -Continue home Wellbutrin. Presence of coronary angioplasty implant and gra ft 07/26/2017 Overview (12/20/2021): Last Assessment & Plan: Stable denies chest pain. Continue ASA and Brilinta, BB and statin, change to Entresto. Abnormal electrocardiography 07/06/2017 Overview (12/08/2021): IVCD, inferior and possible anterior MIs. IVCD, inferior and possible anterior MIs. Abnormal result of other cardiovascular function study 07/06/2017 Overview (12/08/2021): EF 48%, septal, apica, anterior and inferior with hypokinesis and mixed and moderate fixed perfusion defects. EF 48%, septal, apica, anterior and inferior with hypokinesis and mixed and moderate fixed perfusion defects. Edema 07/06/2017 Overview (12/08/2021): bilateral bilateral Hypertensive heart disease without heart failure 07/06/2017 Overview (12/08/2021): mild to moderate mild to moderate ST elevation myocardial infa rction involving left anterior descending coronary artery 07/06/2017 Type 2 diabetes mellitus with diabetic neuropath y 07/06/2017 Overview (12/08/2021): bad in legs bad in legs Ventricular fibrillation 07/06/2017 Overview (12/20/2021): Last Assessment & Plan: No events. Amio stopped, continue BB. Acute respiratory failure with hypercapnia 06/24 Presence of aortocoronary bypass graft 7 Overview (12/20/2021): Last Assessment & Plan: Stable. SP CAG in 2017 complicated by PCI with VF arrest and ICD. Denies chest pain, continue Brlinita 90mg BID, ASA, statin, jardiance, Entresto, and Coreg. Atherosclerotic heart diseas e of [place] coronary artery with other forms of angina pectoris 05/30/2017 Coronary atherosclerosis 05/30/2017 Dependence on other enabling machines and device s 05/26/2017 Overview (12/08/2021): AHI 6 but severe at home AHI 6 but severe at home Dizziness and giddiness 05/26/2017 CAD (coronary artery disease) 05/26/2017 Overview (12/08/2021): elevated fulling pressure elevated fulling pressure Assessment & Plan (11/04/2022 1:59 PM MACHINE TOOL OPERATOR): -S/p CABG, continue aspirin, Brilinta and atorvastatin for secondary prevention. Assessment & Plan (11/03/2022 6:41 PM MACHINE TOOL OPERATOR): -S/p CABG, continue aspirin, Brilinta and atorvastatin for secondary prevention. Assessment & Plan (11/02/2022 7:29 PM MACHINE TOOL OPERATOR): -S/p CABG, continue aspirin, Brilinta and atorvastatin for secondary prevention. Assessment & Plan (11/01/2022 7:08 PM MACHINE TOOL OPERATOR): -S/p CABG, continue aspirin, Brilinta and atorvastatin for secondary prevention. Assessment & Plan (11/01/2022 5:11 AM MACHINE TOOL OPERATOR): -S/p CABG, continue aspirin, Brilinta and atorvastatin for secondary prevention. Obstructive sleep apnea 05/26/2017 Overview (12/08/2021): AHI 6 but severe at home AHI 6 but severe at home Angina pectoris 05/26/2017 Overview (12/08/2021): classic pattern relieved by rest classic pattern relieved by rest Cerebral infarction 05/26/2017 Overview (12/08/2021): mutiple small infarcts mutiple small infarcts Essential (primary) hypertension 07/25/2016 Overview (12/08/2021): 30 years on meds last few years 30 years on meds last few years Type 2 diabetes mellitus wit h diabetic neuropathy, without long-term current use of insulin 07/25/2016 Overview (12/20/2021): controlled on metformin, new cardiac issues, proteinurua. No eye problems. Blurred vision better with control. Bad neuropathy ion legs and feet. Prior strokes by MRI classic pattern relieved by rest controlled on metformin, new cardiac issues, proteinurua. No eye problems. Blurred vision better with control. Bad neuropathy ion legs and feet. Prior strokes by MRI classic pattern relieved by rest Other proteinuria 07/24/2016 Social History Tobacco Use Types Packs/Day Years Used Date Smoking Tobacco: Never Passive Smoke Exposure: Past Smokeless Tobacco: Never Tobacco Cessation:Counseling Given: No Alcohol Use Standard Drinks/Week Comments Not Currently 0 (1 standard drink = 0.6 oz pur e alcohol) OASIS D0700: Social Isolation Answer Da te Recorded Frequency of experiencing loneliness or isolatio n Never 11/10/2022 AUDIT-C Answer Date Recorded Q1: How often do you have a drink containing alcohol? Never 02/06/2024 Q2: How many drinks containi ng alcohol do you have on a typical day when you are drinking? Patient does not drink Q3: How often do you have si x or more drinks on one occasion? Never 02/06/2024 Personal Safety Answer Date Recorded Have you ever been in or are you currently in a harmful physical or emotional relationship or is someone making you feel afraid or unsafe? Denies 02/06/2024 Sex and Gender Information Value Date Recorded Sex Assigned at Not on file Legal Sex Male 8:56 PM MACHINE TOOL OPERATOR Gender Identity Male 08/31/2020 8:23 PM MACHINE TOOL OPERATOR Sexual Orientation Straight 08/31/2020 8: 23 PM MACHINE TOOL OPERATOR Last Filed Vital Signs Vital Sign Reading Time Taken Comments Blood Pressure 133/76 02/10/2024 7:00 AM CDT Pulse 56 02/10/2024 7:00 AM CDT Temperature 36.4 C (97.5 F) 02/10/2024 7:00 AM CDT Respiratory Rate 16 02/10/2024 7:00 AM CDT Oxygen Saturation 97% 02/10/2024 7:00 AM CDT Inhaled Oxygen Concentration - - Weight 145.2 kg (320 lb) 02/09/2024 4:20 PM CDT Height 177.8 cm (5' 10 ) 02/06/2024 2:50 PM CDT Body Mass Index 45.92 02/06/2024 2:50 PM CDT Plan of Treatment Not on file Goals Goal Patient Goal Type Associated Problems Recent Progress Patient-Stated? Author Patient will have kept initial appointment and will show signs of improvement to baseline Care Plan Initial Follow-Up Appointment Rosita Ibrahim RN Medical Devices Implanted Type Area Associate Manager Device Identifier Shelf Expiration Date Model / Serial / Lot [employer] Icd D140-07/05/2017 Implanted:07/05 (Quantity not on file) ICD Chest [employer] C.R.M. D140 / [id number] / [employer] Rv Lead 0293-07/05/2017 Implanted:07/05 (Quantity not on file) Lead Heart [employer] C.R.M. 0293 / [id number] / Stent Implanted:Qty: 3 Stent Chest [employer] Attune Cruciate Retain Cementless Knee Left 7 Component Femoral [id number] - [id number] Implanted:Qty: 1 on 08/09/2022 by Candido Ramirez MD at [facility] Left: Knee [employer] [id number] 10/18/2031 [id number] / / [id number] [employer] Attune Fb Tib Base Sz 6 Por [id number] - [id number] Implanted:Qty: 1 on 08/09/2022 by Candido Ramirez MD at [facility] Left: Knee [employer] 01/16/2032 [id number] / / [id number] [employer] Insert Attune Left Medial Stabilized Size 7 10mm [id number] - [id number] Implanted:Qty: 1 on 08/09/2022 by Candido Ramirez MD at [facility] Left: Knee [employer] 03/17/2030 [id number] / / [id number] [employer] Attune Fb Tib Base Sz 7 Por [id number] - [id number] Implanted:Qty: 1 on 02/06/2024 by Candido Ramirez MD at [facility] Right: Knee [employer] [id number] 01/16/2032 [id number] / / [id number] [employer] Attune Cruciate Retain Cementless Knee Right 7 Component Femoral [id number] - [id number] Implanted:Qty: 1 on 02/06/2024 by Candido Ramirez MD at [facility] Right: Knee [employer] [id number] 12/16/2032 [id number] / / [id number] [employer] Insert Attune Right Medial Stabilized Size 7 10mm [id number] - [id number] Implanted:Qty: 1 on 02/06/2024 by Candido Ramirez MD at [facility] Right: Knee [employer] [id number] 02/15/2031 [id number] / / [id number] Procedures Procedure Name Priority Date/Time Associated Diagnosis Comments EGFR Routine 02/10/2024 12:13 AM CDT HEMOGLOBIN A1C Routine 01/31/2024 10:17 AM CDT Preoperative testing LIPID PANEL STAT 11/01/2022 12:07 AM MACHINE TOOL OPERATOR from Last 3 Months or Most Recently Relevant to Health Maintenance Results * (ABNORMAL) eGFR (02/10/2024 12:13 AM CDT) eGFR 24(L) >=60 mL/min/1. 73 m2 Comment: Interpretive Data Reference Interval Normal >/= 90 mL/min/1.73m2 Mildly decreased* 60 - 89 mL/min/1.73m2 Mildly to moderately decreased 45 - 59 mL/min/1.73m2 Moderately to severely decreased 30 - 44 mL/min/1.73m2 Severely decreased 15 - 29 mL/min/1.73m2 Kidney Failure < 15 mL/min/1.73m2 *Relative to young adult level Estimated glomerular filtration rate is determined by the 2020 CKD-EPI equation recommended by the National Kidney Foundation (A Unifying Approach to GFR Estimation: Recommendations of the NKF-ASK Task Force on Reassessing the Inclusion of Race in Diagnosing Kidney Disease, JASN 2020). The CKD-EPI equation should not be used for patients with unstable renal function and has not been validated in children and those over 70. Current interpretive data was last reviewed 2021. Blood 02/10/2024 12:1 3 AM CDT 02/10/2024 12:33 AM CDT Karissa Villareal NP LAB BLOOD ORDERABLES Final Result Performing Organization Address [facility] [address]/[facility] de Phone Number [facility] [place] [address] * (ABNORMAL) Hemoglobin A1c (01/31/2024 10:17 AM CDT) Hgb A1C 6.7(H) 4.0 - 5.6 % Estimated Average Glucose 146 mg/dL [facility] Comment: The ADA recommends reporting an estimated Average Glucose (eAG) with all Hemoglobin A1c results using the equation derived from a study of 507 normal and diabetic adults. Minority populations were underrepresented and children were not included. (Diabetes Care 2020; 43(S1): S66-S76). The eAG is not equivalent to a fasting glucose. Blood 01/31/2024 10:1 7 AM CDT 01/31/2024 11:20 AM CDT Candido Ramirez MD LAB BLOOD ORDERABLES Final Resul t Performing Organization Address [facility] [address]/[facility] de Phone Number [facility] [place] [address] * (ABNORMAL) Lipid panel (11/01/2022 12:07 AM MACHINE TOOL OPERATOR) Cholesterol 144 30 - 199 mg/dL [facility] Comment: Interpretive Data Ages < or = 19 years Acceptable: <170 mg/dL Borderline high: 170-199 mg/dL High: >or= 200 mg/dL Ages > or = 20 years Desirable: <200 mg/dL Borderline high: 200-239 mg/dL High: >or= 240 mg/dL Literature References: 1. Expert Panel on Integrated Guidelines for Cardiovascular Health and Risk Reduction in Children and Adolescents. Pediatrics 2011;128:S213 2. NCEP Expert Panel. Circulation 2004;110:227 Current Interpretive Data was last revised on 2018. Triglycerides 204(H) <=149 mg/dL [facility] Comment: Interpretive Data Ages < or = 9 years Acceptable: <75 mg/dL Borderline high: 75-99 mg/dL High: >or= 100 mg/dL Ages 10 to 20 years Acceptable: <90 mg/dL Borderline high: 90-129 mg/dL High: >or= 130 mg/dL Ages > or = 20 years Desirable: <150 mg/dL Borderline high: 150-199 mg/dL High: 200-499 mg/dL Very high: >or= 499 mg/dL Literature References: 1. Expert Panel on Integrated Guidelines for Cardiovascular Health and Risk Reduction in Children and Adolescents. Pediatrics 2011;128:S213 2. NCEP Expert Panel. Circulation 2003;110:227 Current Interpretive Data was last revised on 2018. HDL 37(L) >=40 mg/dL [facility] Comment: Interpretive Data Ages < or = 19 years Acceptable: >45 mg/dL Borderline low: 40-45 mg/dL Low: <40 mg/dL Ages > or = 20 years Desirable: >or= 60 mg/dL Low: <40 mg/dL Literature References: 1. Expert Panel on Integrated Guidelines for Cardiovascular Health and Risk Reduction in Children and Adolescents. Pediatrics 2011;128:S213 2. NCEP Expert Panel. Circulation 2003;110:227 Current Interpretive Data was last revised on 2018. LDL, calculated 66 <=129 mg/dL [facility] Comment: Interpretive Data Ages < or = 19 years Acceptable: <110 mg/dL Borderline high: 110-129 mg/dL High: >or= 130 mg/dL Ages > or = 20 years Optimal: <100 mg/dL Near optimal: 100-129 mg/dL Borderline high: 130-159 mg/dL High: >160 mg/dL Literature References: 1. Expert Panel on Integrated Guidelines for Cardiovascular Health and Risk Reduction in Children and Adolescents. Pediatrics 2011;128:S213 2. NCEP Expert Panel. Circulation 2004;110:227 Current Interpretive Data was last revised on 2018. Non-HDL Cholesterol 107 mg/dL [facility] Comment: Interpretive Data Ages < or = 19 years Acceptable: <120 mg/dL Borderline high: 120-144 mg/dL High: >145 mg/dL Ages > or = 20 years When triglycerides are >200 mg/dL, Non-HDL cholesterol is a secondary target of therapy with treatment goals that are 30 mg/dL greater than the LDL cholesterol target. Literature References: 1. Expert Panel on Integrated Guidelines for Cardiovascular Health and Risk Reduction in Children and Adolescents. Pediatrics 2011;128:S213 2. NCEP Expert Panel. Circulation 2004;110:227 Current Interpretive Data was last revised on 2018. Chol/HDL ratio [address] [facility] Blood 11/01/2022 12:0 7 AM MACHINE TOOL OPERATOR 11/01/2022 12:18 AM MACHINE TOOL OPERATOR uJlio Acosta MD LAB BLOOD ORDERABLES Fin al Result [facility] Department [place] [address] from Last 3 Months or Most Recently Relevant to Health Maintenance Additional Health Concerns Active Problems Noted Date Diagnosed Date Initial Follow-Up Appointment 11/07/2022 Insurance [facility] Advance Directives For more information, please contact: [phone] * Full Code (Latest Code Status on File) Date Activated Date Inactivated Comments 02/06/2024 2:57 PM 02/10/2024 6:19 PM * Full Code Date Activated Date Inactivated Comments 11/01/2022 8:26 AM 11/04/2022 3:37 PM * Full Code Date Activated Date Inactivated Comments 08/09/2022 5:39 PM 08/10/2022 8:04 PM Care Teams Nursing Program Manager Relationship Specialty Start Date End Date Jimmie Arias MD [address], [place] [id number] PCP - General Family Medicine 07/07/20
--- OUTSIDE RECORDS SUMMARY | 2025-01-27 09:15 | XMS_ITS | Clinical Summary ---
Author Organization [facility] Address [address] [place] [address] Care Team Providers Care Reformatory Attendant Name Role Phone Jimmie Arias MD Primary Care Provider Miguelito Osborne MD Unavailable [phone] Curtis Maddox MD Unavailable [phone] Melissa Feng MD Unavailable [phone] Vignesh Denton CD Unavailable [phone] Source Comments [facility],non-owned Affiliates and Associated Physician Practices is amultiple site organization consisting of ambulatory clinics and hospital sitesin [place], [place], [place] and [place]. This disclosure is being madepursuant to the Care Everywhere program and may not contain all information available regarding this patient. Last updated 18.[facility] Allergies Active Allergy Reactions Criticality Noted Date Comments Lorazepam Psychiatric Medium 01/20/2018 Hydrocodone Vomiting Low 07/26/2022 Medications * Be aware that medications may not be up to date on this document. Alwaysverify current medications with the patient. Cyanocobalamin (VITAMIN B 12) 100 MCG Take 1,000 mcg by mouth BID. 7 Active aspirin (ASPIRIN) 81 MG tablet Take 1 (one) tablet by mouth DAILY 7 Active doxazosin (CARDURA) 4 MG tablet Take 1 (one) tablet by mouth DAILY 7 Active allopurinol (ZYLOPRIM) 100 MG tablet Take 1 (one) tablet by mouth 2 times daily Active buPROPion XL 24hr (WELLBUTRIN-XL) 300 MG tablet Take 450 mg by mouth every morning Active gabapentin (NEURONTIN) 400 MG capsule Take 1 (one) capsule by mouth 3 times daily 0 Active B Complex Vitamins (B COMPLEX PO) Activ e Brilinta 90 MG tabletIndications:Ce llulitis of right lower extremity,Type 2 diabetes mellitus with diabetic neuropathy, without long-term current use of insulin ([facility]),Essential (primary) hypertension,Type 2 diabetes mellitus with complication, without long-term current use of insulin ([facility]),Abnormal result of other cardiovascular function study,Obstructive sleep apnea,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,Heart disease,Chronic combined systolic and diastolic congestive heart failure (HCC) TAKE 1 TABLET BY MOUTH TWICE DAILY 180 tablet 3 3 Active carvedilol (Coreg) 25 MG tabletIndications:Ch ronic combined systolic and diastolic congestive heart failure (HCC),Ventricular fibrillation (HCC),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,Presence of coronary angioplasty implant and graft Take 1 (one) tablet by mouth 2 times daily with morning and evening meal 180 tablet 3 3 Active potassium chloride ER (Klor-Con M) 20 MEQ tabletIndications:Ch ronic combined systolic and diastolic congestive heart failure (HCC),Ventricular fibrillation (HCC),Hypertensive heart disease without heart failure,Atherosclero tic heart disease of augustine coronary artery with other forms of angina pectoris,Presence of coronary angioplasty implant and graft,Type 2 diabetes mellitus with diabetic neuropathy, without long-term current use of insulin ([facility]),Essential (primary) hypertension,Type 2 diabetes mellitus with complication, without long-term current use of insulin ([facility]),Abnormal result of other cardiovascular function study TAKE 2 TABLETS(40 MEQ) BY MOUTH EVERY DAY 180 tablet 3 3 Active atorvastatin (Lipitor) 40 MG tablet TAKE 1 TABLET BY MOUTH AT BEDTIME 90 tablet 3 3 Active Entresto 49-51 MG tablet TAKE 1 TABLET BY MOUTH TWICE DAILY 180 tablet 3 4 Active torsemide (Demadex) 20 MG tablet Take 1 (one) tablet by mouth once daily 90 tablet 3 4 Active Active Problems Problem Noted Date Diagnosed Date ICD (implantable cardioverter-defibrillator) in place 01/15/2021 Assessment & Plan (04/11/2024 11:25 AM CDT): Device interrogation today. Appropriate function. No arrhtythmias. He does not have a working gateway at home. Planning to have a new one mailed per the device nurse. Assessment & Plan (09/16/2021 1:01 PM SHINGLE CUTTER): Latitude WNL in August. Assessment & Plan (08/10/2021 12:50 PM SHINGLE CUTTER): Latitude scheduled for August. Assessment & Plan (05/14/2021 1:16 PM CDT): Latitudes. Check WNL see media or procedures. Assessment & Plan (01/15/2021 12:54 PM CDT): Needs transmission, latitude or device check in person. Last check 2018. I have messaged the EP team for a remote check. Acute right heart failure 10/23/2020 Acute decompensated heart failure 10/23/2020 Type 2 diabetes mellitus wit h diabetic neuropathy, without long-term current use of insulin 10/23/2020 Class 3 severe obesity due t o excess calories with serious comorbidity and body mass index (BMI) of 40.0 to 44.9 in adult 05/24/2019 Primary osteoarthritis of both knees 08/17/2018 Overview (08/17/2018): severe DJD, consider TKR. Cellulitis of right lower extremity 01/26/2018 Chronic combined systolic an d diastolic congestive heart failure 01/26/2018 Assessment & Plan (04/11/2024 11:26 AM CDT): Last ejection fraction 35-40% on echo 11/2020. Continued Guideline Directed Medical Therapy ICD in place Assessment & Plan (09/16/2021 1:02 PM SHINGLE CUTTER): ICM: SP CABG in 2016, Chronic Combined [...] titration of his GDMT. Assessment & Plan (08/10/2021 1:02 PM SHINGLE CUTTER): ICM: Chronic Combined Systolic Heart Failure. NYHA class III symptoms with an EF of 35-40%. Continue Entresto 49/51mg BID and Coreg to 6.25mg BID. Along with Jardiance 10mg daily stressed again the importance of lab work. He states that he struggles with transportation. He will have this drawn at his follow up with Dr. Arias in August, stable QUINTANILLA and per his report no edema. Continue Bumex 1mg daily. Daily weights and BP checks, log and follow up telehealth visit with Dorothy in one month, pt will have lab work and BP log to allow for titration of his GDMT. Assessment & Plan (05/14/2021 1:16 PM CDT): ICM: Chronic Combined Systolic Heart Failure. NYHA class III symptoms with an EF of 35-40%. Continue Entresto 49/51mg BID and Coreg to 6.25mg BID. Along with Jardiacne 10mg daily pt had BMP drawn, creatine 2.3 in October, 2 in November, will repeat lab work order sent..Torsemide 40mg Daily. Creatine Clearance is 33 on 12/04. With worsening Edema and SOB on physical exam will switch to Bumed 1mg BID for 5 days and then to 1mg daily. Daily weights and BP checks, log and follow up telehealth visit with Dorothy in one month, pt will have lab work and BP log to allow for titration of his GDMT. BMP this week, will have most recent BMP faxed to us today. Assessment & Plan (01/15/2021 12:50 PM CDT): ICM: Chronic Combined Systolic Heart Failure. NYHA class III symptoms with an EF of 35-40%. Continue Entresto 49/51mg BID and Coreg to 6.25mg BID. Along with Jardiacne 10mg daily pt had BMP drawn, creatine 2.3 in October, 2 in November, will repeat lab work order sent.. Torsemide 40mg Daily. Creatine Clearance is 33 on 12/04. Daily weights and BP checks, log and follow up telehealth visit with Dorothy in one month, pt will have lab work and BP log to allow for titration of his GDMT. Assessment & Plan (12/14/2020 1:42 PM CDT): ICM: Chronic Combined Systolic Heart Failure. NYHA class III symptoms with an EF of 35-40%. Continue Entresto 49/51mg BID and Coreg to 6.25mg BID. Along with Jardiacne 10mg daily and check BMP in one week from Monday, pt had BMP drawn, but no results, will repeat lab work order sent.. Torsemide 40mg BID. Daily weights and BP checks, log and follow up telehealth visit with Dorothy in one month, pt will have lab work and BP log to allow for titration of his GDMT. Assessment & Plan (11/23/2020 1:17 PM SHINGLE CUTTER): ICM: Chronic Combined Systolic Heart Failure. NYHA class III symptoms with an EF of 35-40%. Stop Losartan and start Entresto 49/51mg BID, 36 hour wash out. Increase Coreg to 6.25mg BID.Start Jardiacne 10mg daily and check BMP in one week from Monday. Torsemide 40mg BID. Daily weights and BP checks, log and follow up video call in 2 weeks with Dorothy. Anxiety disorder 07/26/2017 Presence of coronary angioplasty implant and gra ft 07/26/2017 Assessment & Plan (11/23/2020 1:09 PM SHINGLE CUTTER): Stable denies chest pain. Continue ASA and Brilinta, BB and statin, change to Entresto. Type 2 diabetes mellitus with diabetic neuropath y 07/06/2017 Overview (12/18/2017): bad in legs Ventricular fibrillation 07/06/2017 Assessment & Plan (09/16/2021 1:01 PM SHINGLE CUTTER): No events. Amio stopped, continue BB. Assessment & Plan (08/10/2021 12:47 PM SHINGLE CUTTER): No events. Amio stopped, continue BB. Assessment & Plan (05/14/2021 1:18 PM CDT): No events. Amio stopped, continue BB. Assessment & Plan (11/23/2020 3:45 PM SHINGLE CUTTER): SP ICD implant, no events. Would favor stopping AMIO no AF or VF on interrogation. Latitudes in 3, 6, 9 months. See procedure report from today. ST elevation myocardial infa rction involving left anterior descending coronary artery 07/06/2017 Edema 07/06/2017 Overview (12/18/2017): bilateral Abnormal electrocardiogram 07/06/2017 Overview (12/18/2017): IVCD, inferior and possible anterior MIs. Hypertensive heart disease without heart failure 07/06/2017 Overview (12/18/2017): mild to moderate Essential (primary) hypertension 07/06/2017 Overview (12/18/2017): 30 years on meds last few years Assessment & Plan (04/11/2024 11:24 AM CDT): BP in acceptable range. Continuing on carvedilol 25, entresto 49-51, and torsemide 20 daily. Type 2 diabetes mellitus with complications 06/18 Overview (12/18/2017): controlled on metformin, new cardiac issues, proteinurua. No eye problems. Blurred vision better with control. Bad neuropathy ion legs and feet. Prior strokes by MRI Abnormal result of other cardiovascular function study 07/06/2017 Overview (12/18/2017): EF 48%, septal, apica, anterior and inferior with hypokinesis and mixed and moderate fixed perfusion defects. Acute respiratory failure with hypoxia 7 Acute respiratory failure with hypercapnia 06/24 Presence of aortocoronary bypass graft 7 Assessment & Plan (05/14/2021 1:23 PM CDT): Stable. SP CAG in 2017 complicated by PCI with VF arrest and ICD. Denies chest pain, continue Brlinita 90mg BID, ASA, statin, jardiance, Entresto, and Coreg. 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 05/30/2017 Obstructive sleep apnea 05/26/2017 Overview (12/18/2017): AHI 6 but severe at home Dependence on other enabling machines and device s 05/26/2017 Overview (12/18/2017): AHI 6 but severe at home Cerebral infarction 05/26/2017 Overview (12/18/2017): mutiple small infarcts Heart disease 05/26/2017 Overview (12/18/2017): elevated fulling pressure Dizziness and giddiness 05/26/2017 Type 2 diabetes mellitus wit h other circulatory complications 05/26/2017 Overview (12/18/2017): classic pattern relieved by rest Angina pectoris 05/26/2017 Overview (12/18/2017): classic pattern relieved by rest Encounters Date Type Department Care Team Description 11/01/2024 Travel from Last 3 Months Family History Medical History Relation Name Comments Crohn's Disease Brother 1 perforation Hypertension Brother 1 Status: d Hypertension Brother 2 Status: Alive Hypertension Brother 3 Status: Alive Hypertension Brother 4 Status: Alive Hypertension Brother 5 Status: Alive Hypertension Brother 6 Status: Alive Cancer - Lung Father Status: Deceas ed CAD (Coronary Artery Disease) Maternal Grandfather 82 Status: None Known Maternal Grandmother Status: CAD (Coronary Artery Disease) Mother Status: Cardiomyopathy Mother None Known Paternal Grandfather Status: None Known Paternal Grandmother Status: Cancer - Colon Sister 1 Status: Alive None Known Sister 1 Status: Alive None Known Sister 2 Status: Alive None Known Sister 3 Status: Alive None Known Sister 4 Status: Alive Crohn's Disease Son bowel perfor ation; Status: Alive Relation Name Status Comments Brother 1 Brother 2 Brother 3 Brother 4 Brother 5 Brother 6 Father Maternal Grandfather 82 Maternal Grandmother Mother Paternal Grandfather Paternal Grandmother Sister 1 Sister 2 Sister 3 Sister 4 Son Social History Tobacco Use Types Packs/Day Years Used Date Smoking Tobacco: Never Smokeless Tobacco: Never Alcohol Use Standard Drinks/Week Comments No 0 (1 standard drink = 0.6 oz pur e alcohol) Sex and Gender Information Value Date Recorded Sex Assigned at Not on file Legal Sex Male 5:15 PM SHINGLE CUTTER Gender Identity Not on file Sexual Orientation Not on file Last Filed Vital Signs Vital Sign Reading Time Taken Comments Blood Pressure 119/70 04/11/2024 10:43 AM CDT Pulse 92 04/11/2024 10:43 AM CDT Temperature 36.2 C (97.2 F) 05/14/2021 10:31 AM CDT Respiratory Rate 18 01/12/2019 2:37 PM CDT Oxygen Saturation 98% 04/11/2024 10:43 AM CDT Inhaled Oxygen Concentration - - Weight 134.3 kg (296 lb) 04/11/2024 10:43 AM CDT Height 177.8 cm (5' 10 ) 04/11/2024 10:43 AM CDT Body Mass Index 42.47 04/11/2024 10:43 AM CDT Plan of Treatment Health Maintenance Due Date Last Done Comments COLOGUARD (AGES 45-75) - COLON CA SCREENING 1960 COLON MONITORING 1960 COLONOSCOPY - COLON CA SCREENING 1960 CT COLONOGRAPHY - COLON CA SCREENING 1960 Colorectal Cancer Screening 1960 FIT - COLON CA SCREENING 1960 FLEX SIG - COLON CA SCREENING 1960 HIV SCREENING 1975 HEPATITIS C SCREENING 06/08/1978 DTAP/TDAP/TD VACCINES (1 - Tdap) 1979 PNEUMOCOCCAL VACCINE 50+ (1 of 2 - PCV) 1979 ZOSTER VACCINE (1 of 2) 2010 DIABETES RETINOPATHY SCREENING 01/26/2018 DIABETES-FOOT EXAM WITH MONOFILAMENT 01/26/2018 Respiratory Syncytial Virus (RSV) Vaccine Pt: or over 60 yrs (1 - Risk 60-74 years 1-dose series) 2020 COVID-19 VACCINE (1 - 2023- season) 2024 DIABETES-HGB A1C 08/02/2024 01/31/2024, , 2017 DIABETES-SERUM CREATININE 08/31/20242022, 08/31/2023, 11/03/2022, Additional history exists DEPRESSION SCREENING 09/18/2024 DIABETES - URINE PROTEIN SCREENING 09/18/2024 INFLUENZA VACCINE (Season Ended) 2025 HEPATITIS B VACCINE Aged Out No longe r eligible based on patient's age to complete this topic HIB VACCINE Aged Out No longer eligi ble based on patient's age to complete this topic HPV VACCINE Aged Out No longer eligi ble based on patient's age to complete this topic MENINGOCOCCAL (Group B) VACCINE SHARED DECISION-MAKING Aged Out No longer eligible based on patient's age to complete this topic MENINGOCOCCAL GROUPS A/C/Y/W VACCINE Aged Out No longer eligible based on patient's age to complete this topic Goals Goal Patient Goal Type Associated Problems Recent Progress Patient-Stated? Author Mobility General Worsening(04/2022 2:14 PM SHINGLE CUTTER) Estela Wilkerson, RN Note: Expected end date: 09/17/2021 The goal is to maintain or improve your mobility at the optimum level for you. Interventions: Procedures Procedure Name Priority Date/Time Associated Diagnosis Comments COMPREHENSIVE METABOLIC PANEL STAT 01/12/2019 2:38 PM CDT HEMOGLOBIN A1C Routine 2017 12:20 PM CDT from Last 3 Months or Most Recently Relevant to Health Maintenance Results * (ABNORMAL) COMPREHENSIVE METABOLIC PANEL (01/12/2019 2:38 PM [facility]) BUN 21 7 - 26 mg/dL 01/12/2019 3:06 PM [facility] Creatinine 1.5(H) 0.6 - 1.2 mg/dL 01/12/2019 3:06 PM [facility] Sodium 139 136 - 145 mmol/L 01/12/2019 3:06 PM [facility] Potassium 4.7(H) 3.5 - 4.5 mmol/L 01/12/2019 3:06 PM [facility] Chloride 109(H) 98 - 107 mmol/L 01/12/2019 3:06 PM [facility] CO2 19(L) 22 - 29 mmol/L 01/12/2019 3:06 PM [facility] Glucose 111 70 - 115 mg/dL 01/12/2019 3:06 PM [facility] Calcium 9.4 8.4 - 10.2 mg/dL 01/12/2019 3:06 PM [facility] Protein Total 6.9 6.0 - 8.3 g/dL 01/12/2019 3:06 PM [facility] Albumin 3.4 3.4 - 5.0 g/dL 01/12/2019 3:06 PM [facility] Bilirubin Total 0.6 0.2 - 1.2 mg/dL 01/12/2019 3:06 PM [facility] Alkaline Phosphatase 94 40 - 150 Units/L 01/12/2019 3:06 PM [facility] ALT 56(H) 0 - 55 Units/L 01/12/2019 3:06 PM [facility] AST 40(H) 5 - 34 Units/L 01/12/2019 3:06 PM [facility] Anion Gap 16 8 - 18 01/12/2019 3:06 PM [facility] BUN/Creatinine Ratio 14 7 - 23 01/12/2019 3:06 PM [facility] Osmolality Calculated 292 270 - 300 mOsm/kg 01/12/2019 3:06 PM [facility] Albumin/Globulin Ratio 1.0(L) 1.1 - 2.3 01/12/2019 3:06 PM [facility] eGFR 48(L) >60 mL/min/1.7 3 m2 01/12/2019 3:06 PM CDT [facility] Blood BLOOD SPECIMEN / Unknown Venipuncture / Unknown 01/12/2019 2:38 PM CDT 01/12/2019 2:38 PM CDT us Lucio Gunderson MD LAB - CHEMISTRY ORDERABLES F inal Result Performing Organization Address City/State/[facility] Co de Phone Number [address] [phone] * (ABNORMAL) HEMOGLOBIN A1C (2017 12:20 PM CDT) Hemoglobin A1c 6.5(H) 4.4 - 6.3 % [facility] Estimated Average Glucose 140 mg/dL [facility] Comment: HbA1c Interpretation: Treatment target values recommended by ADA and other clinical organizations should be used to evaluate metabolic control in patients. Treatment Target Values: Normal : < 5.7% Pre-diabetes: 5.7-6.4% Diabetes: Equal to or greater than 6.5% Reference: [place] [employer] Standards of Care in Diabetes -2014 In patients 70 years and older consider HbA1c target range of 7.0-7.5% Reference: Diabetes Mellitus in Older People: Position Statement on behalf of the International Association of Gerontology and Geriatrics (IAGG), the Diabetes Working Libertarian for Older People (EDWPOP), and the International Task Force of Experts in Diabetes. Oz Paige et al. J [place] [employer] Association. 2012 Test results diagnostic of diabetes should be repeated for confirmation. The Tosoh G8 assay for the measurement of HbA1c is a National Glycohemoglobin Standardization Program (NGSP)certified method. Results for patients with HbE disease should be interpreted with caution as this hemoglobinopathy has been shown to interfere with the Tosoh G8 assay. Blood specimen (specimen) BLOOD SPECIMEN / Unknown 2017 12:20 PM CDT 2017 12:24 PM CDT us Rica Frias MD LAB - CHEMISTRY ORDERABLES Final Result [facility] [address] [place] [address], [facility] [phone] from Last 3 Months or Most Recently Relevant to Health Maintenance Insurance [facility] Care Teams Reformatory Attendant Relationship Specialty Start Date End Date Jimmie Arias MD [address] [place] [address] PCP - General 10/23/14 Miguelito Osborne MD [address] [facility] [address] [place] [address] Nursing Aide Cardiology 06/05/19 Curtis Maddox MD [address] [id number] Neurologist Neurology 06/05/19 Melissa Feng MD [facility] [address] [address] Cloth Finishing Range Operator Chief Nephrology 06/05/19 Vignesh Denton CD [address] [place] [id number] Nursing Aide Cardiology 06/05/19
--- OUTSIDE RECORDS SUMMARY | 2025-01-27 09:15 | XMS_ITS | Clinical Summary ---
Author Organization [facility] [address] Address [address] [place] [address] Care Team Providers Care Medical Referral Coordinator Name Role Phone Jimmie Arias MD Primary Care Provide r Allergies Active Allergy Reactions Criticality Noted Date Comments Hydrocodone Vomiting Low 07/26/2022 Lorazepam Agitation,Delusions, Lucho lucinations,Mental status changes Medium 01/20/2018 Other reaction(s): Psychiatric Medications allopurinoL (ZYLOPRIM) 100 mg tabletIndication s:prevention of acute gout attack Take 1 tablet (100 mg total) by mouth sprinkler installer before breakfast 0 Active gabapentin (NEURONTIN) 400 [...] 1 tablet (450 mg total) by mouth sprinkler installer before breakfast 4 Active amoxicillin 500 mg [...] 11/01/2022 Assessment & Plan (11/04/2022 1:57 PM MOP HANDLE ASSEMBLER): See weakness Assessment & Plan (11/03/2022 6:40 PM MOP HANDLE ASSEMBLER): See weakness Assessment & Plan (11/02/2022 7:26 PM MOP HANDLE ASSEMBLER): See weakness Assessment & Plan (11/01/2022 7:07 PM MOP HANDLE ASSEMBLER): See weakness Assessment & Plan (11/01/2022 5:10 AM MOP HANDLE ASSEMBLER): -Likely secondary to deconditioning and obesity, will rule out organic causes with MRI spine. -Obtain vitamin B12, recent TSH wnl. -PT/OT eval, hold doxazosin due to fall risk. RENETTA (acute kidney injury) 11/01/2022 Assessment & Plan (11/04/2022 2:01 PM MOP HANDLE ASSEMBLER): BL Cr 1.7s to 1.9. On arrival Cr was 1.89 and was up to 2.03. Torsemide was hold on 11/03. Today Cr is 1.65 Assessment & Plan (11/03/2022 6:43 PM MOP HANDLE ASSEMBLER): BL Cr 1.7s to 1.9. On arrival Cr was 1.89. Yesterday Cr was 2.03. Pt is dry on exam. Hold torsemide. Strict I/O. Today Cr is 1.92 Assessment & Plan (11/02/2022 7:31 PM MOP HANDLE ASSEMBLER): BL Cr 1.7s to 1.9. On arrival Cr was 1.89. Today is 2.03. Pt is dry on exam. Hold torsemide. Strict I/O. CTM Assessment & Plan (11/01/2022 7:07 PM MOP HANDLE ASSEMBLER): BL Cr 1.7s to 1.9. - Cr is stable - CTM Assessment & Plan (11/01/2022 5:10 AM MOP HANDLE ASSEMBLER): -Cr stable, continue to monitor. Vitamin D deficiency 11/01/2022 Assessment & Plan (11/04/2022 1:56 PM MOP HANDLE ASSEMBLER): vitamin D deficiency with D-25OH level of 14 on 07/04/22. - Start ergocalciferol weekly x 12 weeks Assessment & Plan (11/03/2022 6:33 PM MOP HANDLE ASSEMBLER): vitamin D deficiency with D-25OH level of 14 on 07/04/22. - Start ergocalciferol weekly Assessment & Plan (11/02/2022 7:25 PM MOP HANDLE ASSEMBLER): vitamin D deficiency with D-25OH level of 14 on 07/04/22. - Start ergocalciferol weekly Assessment & Plan (11/01/2022 7:05 PM MOP HANDLE ASSEMBLER): vitamin D deficiency with D-25OH level of 14 on 07/04/22. - Start ergocalciferol weekly Assessment & Plan (11/01/2022 5:13 AM MOP HANDLE ASSEMBLER): -Patient with prior vitamin D deficiency with D-25OH level of 14 on 07/04/22. -Obtain repeat vitamin D level. Weakness 11/01/2022 Assessment & Plan (11/04/2022 1:59 PM MOP HANDLE ASSEMBLER): LE weakness since left TKA on 08/09. [...] OT Assessment & Plan (11/03/2022 6:39 PM MOP HANDLE ASSEMBLER): LE weakness since left TKA on 08/09. [...] aware. Assessment & Plan (11/02/2022 7:32 PM MOP HANDLE ASSEMBLER): LE weakness since left TKA on 08/09. [...] aware. Assessment & Plan (11/01/2022 7:03 PM MOP HANDLE ASSEMBLER): LE weakness since left TKA on 08/09. [...] 11/01/2022 Assessment & Plan (11/04/2022 1:57 PM MOP HANDLE ASSEMBLER): C/w coreg. Cr improve and torsemide was restarted. Assessment & Plan (11/03/2022 6:40 PM MOP HANDLE ASSEMBLER): C/w coreg. Hold torsemide due to RENETTA Assessment & Plan (11/02/2022 7:26 PM MOP HANDLE ASSEMBLER): C/w coreg. Hold torsemide due to RENETTA Assessment & Plan (11/01/2022 7:06 PM MOP HANDLE ASSEMBLER): C/w coreg and torsemide Knee pain 08/09/2022 Primary osteoarthritis of left knee 05/24/2022 Overview (05/24/2022): Added automatically from request for surgery [id number] ICD (implantable cardioverter-defibrillator) in place 01/15/2021 Overview (12/20/2021): Last Assessment & Plan: [facility] WNL in August. Assessment & Plan (11/03/2022 6:40 PM MOP HANDLE ASSEMBLER): EP is on board regarding MRI Assessment & Plan (11/02/2022 7:25 PM MOP HANDLE ASSEMBLER): Plan is spine MRI. EP is on board Assessment & Plan (11/01/2022 7:06 PM MOP HANDLE ASSEMBLER): Plan is spine MRI. EP consult. Acute right heart failure 10/23/2020 Morbid obesity ([facility]/HCC) 09/03/2020 Assessment & Plan (11/04/2022 1:56 PM MOP HANDLE ASSEMBLER): . Assessment & Plan (11/03/2022 6:40 PM MOP HANDLE ASSEMBLER): . Assessment & Plan (11/02/2022 7:25 PM MOP HANDLE ASSEMBLER): . Assessment & Plan (11/01/2022 7:05 PM MOP HANDLE ASSEMBLER): . Severe obesity 05/24/2019 Primary osteoarthritis of [...] GDMT. Assessment & Plan (11/04/2022 1:58 PM MOP HANDLE ASSEMBLER): -Chronic without acute exacerbation, s/p ICD. Patient follows with [facility] cardiology. -Continue home GDMT with Entresto, Coreg and Jardiance. -Is euvolemic. Because increase Cr, torsemide 20mg daily was hold om 11/04. Cr improve and today Torsemide was restarted. - Strict I/O Assessment & Plan (11/03/2022 6:41 PM MOP HANDLE ASSEMBLER): -Chronic without acute exacerbation, s/p ICD. [facility]. -Continue home GDMT with Entresto, Coreg and Jardiance. -Is euvolemic. Because increase Cr, torsemide 20mg daily was hold. - Strict I/O Assessment & Plan (11/02/2022 7:31 PM MOP HANDLE ASSEMBLER): -Chronic without acute exacerbation, s/p ICD. Patient follows with [facility]. -Continue home GDMT with Entresto, Coreg and Jardiance. -Is euvolemic. Because increase Cr, torsemide 20mg daily was hold. - Strict I/O Assessment & Plan (11/01/2022 7:07 PM MOP HANDLE ASSEMBLER): -Chronic without acute exacerbation, s/p ICD. Patient follows with [facility]. -Continue home GDMT with Entresto, Coreg and Jardiance. -Continue diuresis with torsemide 20mg daily. Assessment & Plan (11/01/2022 5:08 AM MOP HANDLE ASSEMBLER): -Chronic without acute exacerbation, s/p ICD. [facility] follows with [facility]. -Continue home GDMT with Entresto, Coreg and Jardiance. -Continue diuresis with torsemide 20mg daily. Anxiety disorder 07/26/2017 Assessment & Plan (11/04/2022 1:59 PM MOP HANDLE ASSEMBLER): -Continue home Wellbutrin. Assessment & Plan (11/03/2022 6:42 PM MOP HANDLE ASSEMBLER): -Continue home Wellbutrin. Assessment & Plan (11/02/2022 7:29 PM MOP HANDLE ASSEMBLER): -Continue home Wellbutrin. Assessment & Plan (11/01/2022 7:08 PM MOP HANDLE ASSEMBLER): -Continue home Wellbutrin. Assessment & Plan (11/01/2022 5:06 AM MOP HANDLE ASSEMBLER): -Continue home Wellbutrin. Presence of coronary angioplasty [...] and Coreg. Atherosclerotic heart diseas e of [place] coronary artery with other forms of angina pectoris 05/30/2017 Coronary atherosclerosis 05/30/2017 Dependence on other enabling machines and device s 05/26/2017 Overview (12/08/2021): AHI 6 but severe at home AHI 6 but severe at home Dizziness and giddiness 05/26/2017 CAD (coronary artery disease) 05/26/2017 Overview (12/08/2021): elevated fulling pressure elevated fulling pressure Assessment & Plan (11/04/2022 1:59 PM MOP HANDLE ASSEMBLER): -S/p CABG, continue aspirin, Brilinta and atorvastatin for secondary prevention. Assessment & Plan (11/03/2022 6:41 PM MOP HANDLE ASSEMBLER): -S/p CABG, continue aspirin, Brilinta and atorvastatin for secondary prevention. Assessment & Plan (11/02/2022 7:29 PM MOP HANDLE ASSEMBLER): -S/p CABG, continue aspirin, Brilinta and atorvastatin for secondary prevention. Assessment & Plan (11/01/2022 7:08 PM MOP HANDLE ASSEMBLER): -S/p CABG, continue aspirin, Brilinta and atorvastatin for secondary prevention. Assessment & Plan (11/01/2022 5:11 AM MOP HANDLE ASSEMBLER): -S/p CABG, continue aspirin, Brilinta and atorvastatin [...] pattern relieved by rest Other proteinuria 07/24/2016 Surgical History Surgery Date Site/Laterality Comments CARDIAC DEFIBRILLATOR PLACEMENT 06/25/2017 Left [employer] ICD - Model # D140 CORONARY ARTERY BYPASS GRAFT 06/19/2017 RUVALCABA-LAD, SVG-Diag, SVG-PDA, endsoscopic vein harvest WA RPR ANOM CORONARY ARTERY PULM ART ORIGIN GRAFT CARDIAC STENT PLACEMENT 06/21/2017 ABRAM to dPDA x2, mRCA x1, mLADx1, thromobectomy to RUVALCABA CORONARY ANGIOPLASTY 06/24/2017 aspiration thrombectomy of mLAD proximal in-stent thrombosis w/ balloon angioplasty of mLAD stenosis ARTHROPLASTY Left 07/2022 JOINT REPLACEMENT KNEE SURGERY Medical History Medical History Date Comments Morbid obesity (HCC) CHF (congestive heart failure) (HCC) Coronary artery disease Type 2 diabetes mellitus (HCC) Myocardial infarction (HCC) 06/21/2017 Hypertension Joint pain Hypercholesteremia Low back pain Sleep apnea Cardiac arrest (HCC) 06/24/2017 Gout Postoperative delirium following 06/2017 CABG & prolonged hospitalization Family History Medical History Relation Name Comments Cancer Father lung cancer - d eceased age 72 yrs Diabetes Father Hypertension Father Arthritis Mother Heart attack Mother ~ age 70s Hypertension Other 12 Siblings Anesthesia problems Neg Hx Malig Hyperthermia Neg Hx Pseudochol deficiency Neg Hx Relation Name Status Comments Father Mother Other 12 Siblings Alive Social History Tobacco Use Types Packs/Day Years [...] on file Legal Sex Male 8:56 PM MOP HANDLE ASSEMBLER Gender Identity Male 08/31/2020 8:23 PM MOP HANDLE ASSEMBLER Sexual Orientation Straight 08/31/2020 8: 23 PM MOP HANDLE ASSEMBLER Obstetrics History Last Filed Vital Signs Vital Sign Reading [...] 02/06/2024 2:50 PM CDT Plan of Treatment Health Maintenance Due Date Last Done Comments Albumin Creatinine Ratio, Urine 1960 Colon Cancer Screening-Colonoscopy 1960 Depression Screening 1960 Hepatitis C Screening 1960 Prostate Cancer Screening-PSA 1960 Dilated Eye Exam 1960 Foot Exam 1960 DTaP/Tdap/Td Vaccine (1 - Tdap) 1971 Hepatitis B Screening 1978 Regular Well Visit/Exam 18-64 1978 Pneumococcal vaccine <65 (1 of 2 - PCV) 1979 Zoster Vaccine (1 of 2) 2010 Lipid Panel 11/01/2023 11/01/2022 Hemoglobin A1C 08/02/2024 01/31/2024, 07/04/2022 eGFR 02/09/2025 02/10/2024, 01/17, 02/08/2024, Additional history exists Influenza Vaccine (Season Ended) 2025 Goals Goal Patient Goal Type Associated Problems Recent Progress Patient-Stated? Author Patient will have kept initial appointment and will show signs of improvement to baseline Care Plan Initial Follow-Up Appointment Rosita Ibrahim RN Medical Devices Implanted Type Area Fiberglass Luggage Molder Device Identifier Shelf Expiration Date Model / Serial / Lot [employer] Icd D140-07/05/2017 Implanted:07/05 (Quantity not on file) ICD Chest [employer] C.R.M. D140 / [id number] / [employer] Rv Lead 0293-07/05/2017 Implanted:07/05 (Quantity not on file) Lead Heart [employer] C.R.M. 0293 / [id number] / Stent Implanted:Qty: 3 Stent Chest [employer] Attune Cruciate Retain Cementless Knee Left 7 Component Femoral [id number] - [id number] Implanted:Qty: 1 on 08/09/2022 by Candido Ramirez MD at [facility] Left: Knee [employer] [id number] 10/18/2031 [id number] / / [id number] [employer] Attune Fb Tib Base Sz 6 Por [id number] - [id number] Implanted:Qty: 1 on 08/09/2022 by Candido Ramirez MD at [facility] Left: Knee [employer] 01/16/2032 [id number] / / [id number] [employer] Insert Attune Left Medial Stabilized Size 7 10mm [id number] - [id number] Implanted:Qty: 1 on 08/09/2022 by Candido Ramirez MD at [facility] Left: Knee [employer] 03/17/2030 [id number] / / [id number] [employer] Attune Fb Tib Base Sz 7 Por [id number] - [id number] Implanted:Qty: 1 on 02/06/2024 by Candido Ramirez MD at [facility] Right: Knee [employer] [id number] 01/16/2032 [id number] / / [id number] [employer] Attune Cruciate Retain Cementless Knee Right 7 Component Femoral [id number] - [id number] Implanted:Qty: 1 on 02/06/2024 by Candido Ramirez MD at [facility] Right: Knee [employer] [id number] 12/16/2032 [id number] / / [id number] [employer] Insert Attune Right Medial Stabilized Size 7 10mm [id number] - [id number] Implanted:Qty: 1 on 02/06/2024 by Candido Ramirez MD at [facility] Right: Knee [employer] [id number] 02/15/2031 [id number] / / [id number] Procedures Procedure Name Priority Date/Time Associated Diagnosis Comments EGFR Routine 02/10/2024 12:13 AM CDT HEMOGLOBIN A1C Routine 01/31/2024 10:17 AM CDT Preoperative testing LIPID PANEL STAT 11/01/2022 12:07 AM MOP HANDLE ASSEMBLER from Last 3 Months or Most Recently [...] BLOOD ORDERABLES Final Result Performing Organization Address [facility] de Phone Number [facility] [place] [address] * (ABNORMAL) Hemoglobin A1c (01/31/2024 10:17 AM CDT) Hgb A1C 6.7(H) 4.0 - 5.6 % Estimated Average Glucose 146 mg/dL [facility] Comment: The ADA recommends reporting an estimated Average Glucose (eAG) with all Hemoglobin A1c results using the equation derived from a study of 507 normal and diabetic adults. Minority populations were underrepresented and children were not included. (Diabetes Care 2020; 43(S1): S66-S76). The eAG is not equivalent to a fasting glucose. Blood 01/31/2024 10:1 7 AM CDT 01/31/2024 11:20 AM CDT Result [facility] Candido Ramirez MD LAB BLOOD ORDERABLES Final Resul t Performing Organization Address [facility] de Phone Number [facility] Department [place] [address] * (ABNORMAL) Lipid panel (11/01/2022 12:07 AM MOP HANDLE ASSEMBLER) Cholesterol 144 30 - 199 mg/dL [facility] Comment: Interpretive Data Ages < or = [...] revised on 2018. Triglycerides 204(H) <=149 mg/dL [facility] Comment: Interpretive Data Ages < or = [...] revised on 2018. HDL 37(L) >=40 mg/dL [facility] Comment: Interpretive Data Ages < or = [...] on 2018. LDL, calculated 66 <=129 mg/dL [facility] Comment: Interpretive Data Ages < or = [...] revised on 2018. Non-HDL Cholesterol 107 mg/dL [facility] Comment: Interpretive Data Ages < or = [...] last revised on 2018. Chol/HDL ratio 4 [facility] Blood 11/01/2022 12:0 7 AM MOP HANDLE ASSEMBLER 11/01/2022 12:18 AM MOP HANDLE ASSEMBLER us Julio Acosta MD LAB BLOOD ORDERABLES Fin al Result [facility] Department [place] [address] from Last 3 Months or Most Recently Relevant to Health Maintenance Additional Health Concerns Active Problems Noted Date Diagnosed Date Initial Follow-Up Appointment 11/07/2022 Insurance [facility] Advance Directives For more information, please contact: [phone] * Full Code (Latest Code Status on File) Date Activated Date Inactivated Comments 02/06/2024 2:57 PM 02/10/2024 6:19 PM * Full Code Date Activated Date Inactivated Comments 11/01/2022 8:26 AM 11/04/2022 3:37 PM * Full Code Date Activated Date Inactivated Comments 08/09/2022 5:39 PM 08/10/2022 8:04 PM Care Teams Medical Referral Coordinator Relationship Specialty Start Date End Date Jimmie Arias MD [address], [place] [id number] PCP - General Family Medicine 07/07/20
--- OUTSIDE RECORDS SUMMARY | 2025-01-27 09:15 | XMS_ITS | Clinical Summary ---
Author Organization [facility] Address [address] [place] [address] Care Team Providers Care Waiter/Waitress Tavern Name Role Phone Jimmie Arias MD Primary Care Provider Allergies Active Allergy Reactions Criticality Noted Date Comments Lorazepam Hallucinations 08/31/2023 Social History Tobacco Use Types Packs/Day Years Used Date Smoking Tobacco: Never Smokeless Tobacco: Never Tobacco Cessation:Counseling Given: Not Answered Alcohol Use Standard Drinks/Week Comments Not Currently 0 (1 standard drink = 0.6 oz pur e alcohol) Sex and Gender Information Value Date Recorded Sex Assigned at Not on file Legal Sex Male 9:03 AM CDT Gender Identity Not on file Sexual Orientation Not on file Last Filed Vital Signs Vital Sign Reading Time Taken Comments Blood Pressure 105/66 08/31/2023 3:15 PM SOCIAL SCIENCES CHAIR Pulse 49 08/31/2023 3:29 PM SOCIAL SCIENCES CHAIR Temperature 36.1 C (96.9 F) 08/31/2023 11:25 AM SOCIAL SCIENCES CHAIR Respiratory Rate 15 08/31/2023 2:45 PM SOCIAL SCIENCES CHAIR Oxygen Saturation 99% 08/31/2023 3:29 PM SOCIAL SCIENCES CHAIR Inhaled Oxygen Concentration - - Weight 139.2 kg (306 lb 14.1 oz) 2022 11:19 AM SOCIAL SCIENCES CHAIR Height 182.9 cm (6') 08/31/2023 11:19 AM SOCIAL SCIENCES CHAIR Body Mass Index 41.62 08/31/2023 11:19 AM SOCIAL SCIENCES CHAIR Plan of Treatment Health Maintenance Due Date Last Done Comments Hepatitis C Virus (HCV) Screening 1960 TdaP Immunization 1960 Colonoscopy 2005 Colorectal Cancer Screening 2005 Cologuard 2010 Immunochemical Fecal Occult Blood 2010 Pneumococcal Immunization (5 0+ years) (1 of 1 - PCV) 2010 Zoster Immunization (1 of 2) 2010 PSA Discussion 2015 Respiratory Syncytial Virus (RSV) Immunization (Adult) (1 - Risk 60-74 years 1-dose series) 2020 Influenza Immunization (#1) 2024 SARS-COV-2 Immunization (1 - season) 2024 Hepatitis B Immunization Aged Out No longer eligible based on patient's age to complete this topic Meningococcal Immunization (ACWY) Aged Out No longer eligible based on patient's age to complete this topic Rotavirus Immunization Aged Out No lo nger eligible based on patient's age to complete this topic Insurance MEDICAID [employer] Care Teams Waiter/Waitress Tavern Relationship Specialty Start Date End Date Jimmie Arias MD [address] [place] [address] PCP - General Pediatrics 05/31/22
--- OUTSIDE RECORDS SUMMARY | 2025-01-27 09:15 | XMS_ITS | Clinical Summary ---
Author Organization [facility] Address [address] [place] [id number] Phone Care Team Providers Care Yield Loss Inspector Name Role Phone Jimmie Arias MD Primary Care Provider [phone] Allergies Active Allergy Reactions Criticality Noted Date Comments Lorazepam Medium 01/20/2018 Other reaction(s): Psychiatric Medications metFORMIN (GLUCOPHAGE) 1000 MG tablet 1 tab/cap bid 0 08/05/2016 Active Cyanocobalamin (VITAMIN B12) 1000 MCG tablet controlled-rele ase 1 tab/cap qday 0 08/05/2016 Active amiodarone (PACERONE) 200 MG tablet TK 1 T PO QD 04/04/2020 Active atorvastatin (LIPITOR) 40 MG tablet TK 1 T PO HS 03/30/2020 Active buPROPion XL (WELLBUTRIN XL) 300 MG 24 hr tablet TK 1 T PO D 04/16/2020 Active carvedilol (COREG) 3.125 MG tablet TK 1 T PO BID WITH MORNING AND EVENING MEAL 03/30/2020 Active doxazosin (CARDURA) 4 MG tablet TK 1 T PO D 04/04/2020 Active furosemide (LASIX) 40 MG tablet 04/16/2020 Active gabapentin (NEURONTIN) 400 MG capsule TK 1 C PO TID 03/26/2020 Active HYDROcodone-anthony taminophen (LORCET PLUS) 10-325 MG per tablet TK 1 T PO Q 6 H PRN P 03/26/2020 Active losartan (COZAAR) 100 MG tablet TK 1 T PO QD 04/04/2020 Active potassium chloride (KLOR-CON M20) 20 MEQ CR tablet TK 2 TS PO ONCE DAILY 03/26/2020 Active BRILINTA 90 MG tablet TK 1 T PO BID 03/26/2020 Active allopurinol (ZYLOPRIM) 100 MG tablet TK 1 T PO D 03/30/2020 Active Active Problems Problem Noted Date Diagnosed Date Severe obesity 05/24/2019 Primary gonarthrosis, bilateral 08/17/2018 Overview (04/23/2020): severe DJD, consider TKR. Type 2 diabetes mellitus wit h other diabetic kidney complication 07/25/2018 Hypertensive chronic kidney disease with stage 1 through stage 4 chronic kidney disease, or unspecified chronic kidney disease 07/25/2018 Cellulitis of right lower limb 01/26/2018 Chronic combined systolic an d diastolic congestive heart failure 01/26/2018 Anxiety disorder 07/26/2017 Presence of coronary angioplasty implant and gra ft 07/26/2017 Abnormal result of other cardiovascular function study 07/06/2017 Overview (04/23/2020): EF 48%, septal, apica, anterior and inferior with hypokinesis and mixed and moderate fixed perfusion defects. Edema 07/06/2017 Overview (04/23/2020): bilateral Electrocardiogram abnormal 07/06/2017 Overview (04/23/2020): IVCD, inferior and possible anterior MIs. Hypertensive heart disease without heart failure 07/06/2017 Overview (04/23/2020): mild to moderate ST elevation myocardial infa rction involving left anterior descending coronary artery 07/06/2017 Type 2 diabetes mellitus with diabetic neuropath y 07/06/2017 Overview (04/23/2020): bad in legs Ventricular fibrillation 07/06/2017 Acute respiratory failure with hypercapnia 06/24 Coronary atherosclerosis 05/30/2017 Angina pectoris 05/26/2017 Overview (04/23/2020): classic pattern relieved by rest Cerebral infarction 05/26/2017 Overview (04/23/2020): mutiple small infarcts Dependence on other enabling machines and device s 05/26/2017 Overview (04/23/2020): AHI 6 but severe at home Dizziness and giddiness 05/26/2017 Heart disease 05/26/2017 Overview (04/23/2020): elevated fulling pressure Obstructive sleep apnea 05/26/2017 Overview (04/23/2020): AHI 6 but severe at home Type 2 diabetes mellitus 07/25/2016 Overview (04/23/2020): controlled on metformin, new cardiac issues, proteinurua. No eye problems. Blurred vision better with control. Bad neuropathy ion legs and feet. Prior strokes by MRI classic pattern relieved by rest Essential (primary) hypertension 07/25/2016 Overview (04/23/2020): 30 years on meds last few years Other proteinuria 07/24/2016 Family History Medical History Relation Comments Malignant neoplastic disease Father Coronary arteriosclerosis Mother Heart disease Mother Kidney disease Neg Hx Kidney stone Neg Hx Relation Status Comments Father Mother Social History Tobacco Use Types Packs/Day Years Used Date Smoking Tobacco: Never Smokeless Tobacco: Never Alcohol Use Standard Drinks/Week Comments No 0 (1 standard drink = 0.6 oz pur e alcohol) Sex and Gender Information Value Date Recorded Sex Assigned at Not on file Legal Sex Male 9:04 AM MST Gender Identity Not on file Sexual Orientation Not on file Last Filed Vital Signs Vital Sign Reading Time Taken Comments Blood Pressure 136/76 04/23/2020 3:38 PM CDT Pulse - - Temperature 36.4 C (97.5 F) 04/23/2020 3:38 PM CDT Respiratory Rate 18 04/23/2020 3:38 PM CDT Oxygen Saturation - - Inhaled Oxygen Concentration - - Weight 148 kg (326 lb) 04/23/2020 3:38 PM CDT Height 182.9 cm (6') 04/23/2020 3:38 PM CDT Body Mass Index 44.21 04/23/2020 3:38 PM CDT Plan of Treatment Health Maintenance Due Date Last Done Comments Influenza Vaccine (Season Ended) 2025 Insurance [employer] Care Teams Yield Loss Inspector Relationship Specialty Start Date End Date Jimmie Arias MD [address] [place] [id number] PCP - General Internal Medicine 04/19/20
--- OUTSIDE RECORDS SUMMARY | 2025-01-27 09:15 | XMS_ITS | Clinical Summary ---
Author Organization [facility] Address [address] [place] [id number] Care Team Providers Care Computer Console Operator Name Role Phone Unavailable Primary Care Provider Unavailabl e Social History Tobacco Use Types Packs/Day Years Used Date Smoking Tobacco: Never Assessed Sex and Gender Information Value Date Recorded Sex Assigned at Not on file Legal Sex Male 1:41 AM CDT Gender Identity Not on file Sexual Orientation Not on file Plan of Treatment Health Maintenance Due Date Last Done Comments Colorectal Cancer Screening Colonoscopy (10 Years) 1960 Annual Physical 1963 Hepatitis C 1978 DTaP, Tdap and Td Vaccines ( 1 - Tdap) 1979 Pneumococcal Vaccine: 50+ Ye ars (1 of 1 - PCV) 2010 Zoster Vaccines (1 of 2) 2010 COVID-19 Vaccine ( - 2023-2 5 season) 2024 RSV Immunization or 60+ Years (1 - 1-dose 75+ series) 2035 Meningococcal B Vaccine Aged Out No l onger eligible based on patient's age to complete this topic Meningococcal Vaccine Aged Out No devaughn suhail eligible based on patient's age to complete this topic RSV Immunizations Under 20 Months Aged Out No longer eligible based on patient's age to complete this topic Insurance [employer]
--- OUTSIDE RECORDS SUMMARY | 2025-01-27 09:15 | XMS_ITS ---
Care Plan Created on: January 27, 2025 LeoJeffery berumen : 1960 Sex: Male Author Organization [facility] [address] Address [address] [place] [address] Care Team Providers Care Insurance Territory Manager Name Role Phone Jimmie Arias MD Primary Care Provide r Active Problems Problem Noted Date Diagnosed Date Osteoarthritis of right knee , unspecified osteoarthritis type 02/06/2024 Primary osteoarthritis of right knee 01/03/2024 Fall 11/01/2022 Assessment & Plan (11/04/2022 1:57 PM ADJUNCT PHLEBOTOMY INSTRUCTOR): See weakness Assessment & Plan (11/03/2022 6:40 PM ADJUNCT PHLEBOTOMY INSTRUCTOR): See weakness Assessment & Plan (11/02/2022 7:26 PM ADJUNCT PHLEBOTOMY INSTRUCTOR): See weakness Assessment & Plan (11/01/2022 7:07 PM ADJUNCT PHLEBOTOMY INSTRUCTOR): See weakness Assessment & Plan (11/01/2022 5:10 AM ADJUNCT PHLEBOTOMY INSTRUCTOR): -Likely secondary to deconditioning and obesity, will rule out organic causes with MRI spine. -Obtain vitamin B12, recent TSH wnl. -PT/OT eval, hold doxazosin due to fall risk. RENETTA (acute kidney injury) 11/01/2022 Assessment & Plan (11/04/2022 2:01 PM ADJUNCT PHLEBOTOMY INSTRUCTOR): BL Cr 1.7s to 1.9. On arrival Cr was 1.89 and was up to 2.03. Torsemide was hold on 11/03. Today Cr is 1.65 Assessment & Plan (11/03/2022 6:43 PM ADJUNCT PHLEBOTOMY INSTRUCTOR): BL Cr 1.7s to 1.9. On arrival Cr was 1.89. Yesterday Cr was 2.03. Pt is dry on exam. Hold torsemide. Strict I/O. Today Cr is 1.92 Assessment & Plan (11/02/2022 7:31 PM ADJUNCT PHLEBOTOMY INSTRUCTOR): BL Cr 1.7s to 1.9. On arrival Cr was 1.89. Today is 2.03. Pt is dry on exam. Hold torsemide. Strict I/O. CTM Assessment & Plan (11/01/2022 7:07 PM ADJUNCT PHLEBOTOMY INSTRUCTOR): BL Cr 1.7s to 1.9. - Cr is stable - CTM Assessment & Plan (11/01/2022 5:10 AM ADJUNCT PHLEBOTOMY INSTRUCTOR): -Cr stable, continue to monitor. Vitamin D deficiency 11/01/2022 Assessment & Plan (11/04/2022 1:56 PM ADJUNCT PHLEBOTOMY INSTRUCTOR): vitamin D deficiency with D-25OH level of 14 on 07/04/22. - Start ergocalciferol weekly x 12 weeks Assessment & Plan (11/03/2022 6:33 PM ADJUNCT PHLEBOTOMY INSTRUCTOR): vitamin D deficiency with D-25OH level of 14 on 07/04/22. - Start ergocalciferol weekly Assessment & Plan (11/02/2022 7:25 PM ADJUNCT PHLEBOTOMY INSTRUCTOR): vitamin D deficiency with D-25OH level of 14 on 07/04/22. - Start ergocalciferol weekly Assessment & Plan (11/01/2022 7:05 PM ADJUNCT PHLEBOTOMY INSTRUCTOR): vitamin D deficiency with D-25OH level of 14 on 07/04/22. - Start ergocalciferol weekly Assessment & Plan (11/01/2022 5:13 AM ADJUNCT PHLEBOTOMY INSTRUCTOR): -Patient with prior vitamin D deficiency with D-25OH level of 14 on 07/04/22. -Obtain repeat vitamin D level. Weakness 11/01/2022 Assessment & Plan (11/04/2022 1:59 PM ADJUNCT PHLEBOTOMY INSTRUCTOR): LE weakness since left TKA on 08/09. [...] OT Assessment & Plan (11/03/2022 6:39 PM ADJUNCT PHLEBOTOMY INSTRUCTOR): LE weakness since left TKA on 08/09. [...] regarding possible SNF vs HH with PT. SW is aware. Assessment & Plan (11/02/2022 7:32 PM ADJUNCT PHLEBOTOMY INSTRUCTOR): LE weakness since left TKA on 08/09. [...] Discuss with pt and regarding possible SNF. SW is aware. Assessment & Plan (11/01/2022 7:03 PM ADJUNCT PHLEBOTOMY INSTRUCTOR): LE weakness since left TKA on 08/09. [...] 11/01/2022 Assessment & Plan (11/04/2022 1:57 PM ADJUNCT PHLEBOTOMY INSTRUCTOR): C/w coreg. Cr improve and torsemide was restarted. Assessment & Plan (11/03/2022 6:40 PM ADJUNCT PHLEBOTOMY INSTRUCTOR): C/w coreg. Hold torsemide due to RENETTA Assessment & Plan (11/02/2022 7:26 PM ADJUNCT PHLEBOTOMY INSTRUCTOR): C/w coreg. Hold torsemide due to RENETTA Assessment & Plan (11/01/2022 7:06 PM ADJUNCT PHLEBOTOMY INSTRUCTOR): C/w coreg and torsemide Knee pain 08/09/2022 Primary osteoarthritis of left knee 05/24/2022 Overview (05/24/2022): Added automatically from request for surgery [id number] ICD (implantable cardioverter-defibrillator) in place 01/15/2021 Overview (12/20/2021): Last Assessment & Plan: [facility] WNL in August. Assessment & Plan (11/03/2022 6:40 PM ADJUNCT PHLEBOTOMY INSTRUCTOR): EP is on board regarding MRI Assessment & Plan (11/02/2022 7:25 PM ADJUNCT PHLEBOTOMY INSTRUCTOR): Plan is spine MRI. EP is on board Assessment & Plan (11/01/2022 7:06 PM ADJUNCT PHLEBOTOMY INSTRUCTOR): Plan is spine MRI. EP consult. Acute right heart failure 10/23/2020 Morbid obesity ([facility]) 09/03/2020 Assessment & Plan (11/04/2022 1:56 PM ADJUNCT PHLEBOTOMY INSTRUCTOR): . Assessment & Plan (11/03/2022 6:40 PM ADJUNCT PHLEBOTOMY INSTRUCTOR): . Assessment & Plan (11/02/2022 7:25 PM ADJUNCT PHLEBOTOMY INSTRUCTOR): . Assessment & Plan (11/01/2022 7:05 PM ADJUNCT PHLEBOTOMY INSTRUCTOR): . Severe obesity 05/24/2019 Primary osteoarthritis of [...] Assessment & Plan: ICM: SP CABG in 2017, Chronic Combined Systolic Heart Failure. NYHA class [...] GDMT. Assessment & Plan (11/04/2022 1:58 PM ADJUNCT PHLEBOTOMY INSTRUCTOR): -Chronic without acute exacerbation, s/p ICD. [facility]. -Continue home GDMT with Entresto, Coreg and Jardiance. -Is euvolemic. Because increase Cr, torsemide 20mg daily was hold om 11/04. Cr improve and today Torsemide was restarted. - Strict I/O Assessment & Plan (11/03/2022 6:41 PM ADJUNCT PHLEBOTOMY INSTRUCTOR): -Chronic without acute exacerbation, s/p ICD. [facility] with [facility]. -Continue home GDMT with Entresto, Coreg and Jardiance. -Is euvolemic. Because increase Cr, torsemide 20mg daily was hold. - Strict I/O Assessment & Plan (11/02/2022 7:31 PM ADJUNCT PHLEBOTOMY INSTRUCTOR): -Chronic without acute exacerbation, s/p ICD. [facility] follows with [facility]. -Continue home GDMT with Entresto, Coreg and Jardiance. -Is euvolemic. Because increase Cr, torsemide 20mg daily was hold. - Strict I/O Assessment & Plan (11/01/2022 7:07 PM ADJUNCT PHLEBOTOMY INSTRUCTOR): -Chronic without acute exacerbation, s/p ICD. [facility] with [facility]. -Continue home GDMT with Entresto, Coreg and Jardiance. -Continue diuresis with torsemide 20mg daily. Assessment & Plan (11/01/2022 5:08 AM ADJUNCT PHLEBOTOMY INSTRUCTOR): -Chronic without acute exacerbation, s/p ICD. Patient [facility] with [facility] cardiology. -Continue home GDMT with Entresto, Coreg and Jardiance. -Continue diuresis with torsemide 20mg daily. Anxiety disorder 07/26/2017 Assessment & Plan (11/04/2022 1:59 PM ADJUNCT PHLEBOTOMY INSTRUCTOR): -Continue home Wellbutrin. Assessment & Plan (11/03/2022 6:42 PM ADJUNCT PHLEBOTOMY INSTRUCTOR): -Continue home Wellbutrin. Assessment & Plan (11/02/2022 7:29 PM ADJUNCT PHLEBOTOMY INSTRUCTOR): -Continue home Wellbutrin. Assessment & Plan (11/01/2022 7:08 PM ADJUNCT PHLEBOTOMY INSTRUCTOR): -Continue home Wellbutrin. Assessment & Plan (11/01/2022 5:06 AM ADJUNCT PHLEBOTOMY INSTRUCTOR): -Continue home Wellbutrin. Presence of coronary angioplasty [...] and Coreg. Atherosclerotic heart diseas e of [place] coronary artery with other forms of angina pectoris 05/30/2017 Coronary atherosclerosis 05/30/2017 Dependence on other enabling machines and device s 05/26/2017 Overview (12/08/2021): AHI 6 but severe at home AHI 6 but severe at home Dizziness and giddiness 05/26/2017 CAD (coronary artery disease) 05/26/2017 Overview (12/08/2021): elevated fulling pressure elevated fulling pressure Assessment & Plan (11/04/2022 1:59 PM ADJUNCT PHLEBOTOMY INSTRUCTOR): -S/p CABG, continue aspirin, Brilinta and atorvastatin for secondary prevention. Assessment & Plan (11/03/2022 6:41 PM ADJUNCT PHLEBOTOMY INSTRUCTOR): -S/p CABG, continue aspirin, Brilinta and atorvastatin for secondary prevention. Assessment & Plan (11/02/2022 7:29 PM ADJUNCT PHLEBOTOMY INSTRUCTOR): -S/p CABG, continue aspirin, Brilinta and atorvastatin for secondary prevention. Assessment & Plan (11/01/2022 7:08 PM ADJUNCT PHLEBOTOMY INSTRUCTOR): -S/p CABG, continue aspirin, Brilinta and atorvastatin for secondary prevention. Assessment & Plan (11/01/2022 5:11 AM ADJUNCT PHLEBOTOMY INSTRUCTOR): -S/p CABG, continue aspirin, Brilinta and atorvastatin [...] pattern relieved by rest Other proteinuria 07/24/2016 Additional Health Concerns Active Problems Noted Date Diagnosed Date Initial Follow-Up Appointment 11/07/2022 Goals Goal Patient Goal Type Associated Problems Recent Progress Patient-Stated? Author Patient will have kept initial appointment and will show signs of improvement to baseline Care Plan Initial Follow-Up Appointment Rosita Ibrahim RN Interventions Care Plan Interventions Intervention Entry Date Outcome Follow up with patient 2 days after Post Hospital Visit office visit to ensure understanding of changes and follow-up plan 11/07/2022 Coordinate with patient/caregiver(s) to ensure patient is able to keep scheduled appointment 11/07/2022 Address any barriers for keeping scheduled appointment 11/07/2022 Discuss with patient/ caregiver plan for transportation to appointment 11/07/2022 Ensure Pt has follow-up scheduled within 7 days of discharge 11/07/2022 Related Goals and Interventions Goal Associated Intervent ions Patient will have kept initi al appointment and will show signs of improvement to baseline Follow up with patient 2 days after Post Hospital Visit office visit to ensure understanding of changes and follow-up plan; Coordinate with patient/caregiver(s) to ensure patient is able to keep scheduled appointment; Address any barriers for keeping scheduled appointment; Discuss with patient/ caregiver plan for transportation to appointment; Ensure Pt has follow-up scheduled within 7 days of discharge
[2025-01-27 09:36] LABS: Hematocrit 41.8 % (40.0-54.0); Hemoglobin 13.3 g/dL (14.0-18.0); Mean Corpuscular HGB Conc 31.8 g/dL (32-36); Mean Corpuscular Hemoglobin 30.3 pg (27.0-31.0); Mean Corpuscular Volume 95.2 fL (78.0-102.0); Platelet Count Result 163 K/mm3 (150-420); Red Blood Count 4.39 M/mm3 (4.70-6.10); Red Cell Distribution Width 13.7 % (11.6-14.4); White Blood Count 6.8 K/mm3 (4.8-10.8)
[2025-01-27 09:56] LABS: Add Urine Microscopic? YES; Appearance Urine Clear (Clear); Bilirubin Urine Negative (Negative); Blood Urine Negative (Negative); Color Urine Light Yellow (Yellow); Glucose Urine UA Negative (Negative); Ketones Urine Negative (Negative); Leukocyte Esterase Ur Trace LEU/UL (Negative); Nitrate Urine Negative (Negative); Protein Urine Negative (Negative); Specific Grav Ur 1.015 (1.010-1.020); Urobilinogen Urine 0.2 mg/dL (0.2-1.0)
[2025-01-27 10:03] LABS: Bacteria Urine Trace /hpf; RBC Urine None seen /hpf (0-2); Squamous Epithelial Cell Urine Rare /hpf (Few); WBC Urine 0-3 /hpf (0-3)
[2025-01-27 10:13] LABS: Hemoglobin A1C 7.8 % (<5.7)
[2025-01-27 10:24] LABS: Alanine Aminotransferase 19 U/L (16-63); Alkaline Phosphatase 109 U/L (46-116); Anion Gap 8 mmol/L (4-12); Aspartate Amino Transferase 22 U/L (15-37); Bilirubin,Total 0.4 mg/dL (0.00-1.00); Blood Urea Nitrogen 45 mg/dL (7-18); Calcium 8.7 mg/dL (8.5-10.1); Carbon Dioxide 25 mmol/L (21-32); Chloride 105 mmol/L (98-108); Estimated Glomerular Filt Rate 29; Glucose 149 mg/dL (70-99); Osmolality Calculated 300 mOsm/kg (285-295); Potassium 4.9 mmol/L (3.5-5.1); Sodium 138 mmol/L (136-145); Thyroid Stimulating Hormone 3.91 uIU/mL (0.36-3.74); Total Protein 7.3 g/dL (6.4-8.2); Uric Acid 11.5 mg/dL (3.5-7.2)
[2025-01-27 15:41] LABS: Free T4 Free Thyroxine 0.92 ng/dL (0.76-1.46)
== END 2025-01-27 09:03 | disposition home or self-care (01) ==
PROVIDERS: PCP Family Medicine; Visit Provider Family Medicine
DX: E11.9 Type 2 diabetes mellitus without complications (principal); M10.9 Gout, unspecified; R94.6 Abnormal results of thyroid function studies
CPT/HCPCS: 36415; 80053; 81001; 83036; 84439; 84443; 84550; 85027

== ENCOUNTER 2025-04-14 09:45 | Outpatient (CLI) | payer OTHER, SELFPAY ==
--- OUTSIDE RECORDS SUMMARY | 2025-04-14 10:09 | XMS_ITS ---
Care Plan Created on: April 14, 2025 Jeffery Bailey : 1960 Sex: Male Author Organization [facility] [address] Address [address] [place] [address] Care Team Providers Care Medtronics Technician Name Role Phone Jimmie Arias MD Primary Care Provide r Active Problems Problem Noted Date Diagnosed Date Osteoarthritis of right knee , unspecified osteoarthritis type 02/06/2024 Primary osteoarthritis of right knee 01/03/2024 Fall 11/01/2022 Assessment & Plan (11/04/2022 1:57 PM VARNISH THINNER): See weakness Assessment & Plan (11/03/2022 6:40 PM VARNISH THINNER): See weakness Assessment & Plan (11/02/2022 7:26 PM VARNISH THINNER): See weakness Assessment & Plan (11/01/2022 7:07 PM VARNISH THINNER): See weakness Assessment & Plan (11/01/2022 5:10 AM VARNISH THINNER): -Likely secondary to deconditioning and obesity, will rule out organic causes with MRI spine. -Obtain vitamin B12, recent TSH wnl. -PT/OT eval, hold doxazosin due to fall risk. RENETTA (acute kidney injury) 11/01/2022 Assessment & Plan (11/04/2022 2:01 PM VARNISH THINNER): BL Cr 1.7s to 1.9. On arrival Cr was 1.89 and was up to 2.03. Torsemide was hold on 11/03. Today Cr is 1.65 Assessment & Plan (11/03/2022 6:43 PM VARNISH THINNER): BL Cr 1.7s to 1.9. On arrival Cr was 1.89. Yesterday Cr was 2.03. Pt is dry on exam. Hold torsemide. Strict I/O. Today Cr is 1.92 Assessment & Plan (11/02/2022 7:31 PM VARNISH THINNER): BL Cr 1.7s to 1.9. On arrival Cr was 1.89. Today is 2.03. Pt is dry on exam. Hold torsemide. Strict I/O. CTM Assessment & Plan (11/01/2022 7:07 PM VARNISH THINNER): BL Cr 1.7s to 1.9. - Cr is stable - CTM Assessment & Plan (11/01/2022 5:10 AM VARNISH THINNER): -Cr stable, continue to monitor. Vitamin D deficiency 11/01/2022 Assessment & Plan (11/04/2022 1:56 PM VARNISH THINNER): vitamin D deficiency with D-25OH level of 14 on 07/04/22. - Start ergocalciferol weekly x 12 weeks Assessment & Plan (11/03/2022 6:33 PM VARNISH THINNER): vitamin D deficiency with D-25OH level of 14 on 07/04/22. - Start ergocalciferol weekly Assessment & Plan (11/02/2022 7:25 PM VARNISH THINNER): vitamin D deficiency with D-25OH level of 14 on 07/04/22. - Start ergocalciferol weekly Assessment & Plan (11/01/2022 7:05 PM VARNISH THINNER): vitamin D deficiency with D-25OH level of 14 on 07/04/22. - Start ergocalciferol weekly Assessment & Plan (11/01/2022 5:13 AM VARNISH THINNER): -Patient with prior vitamin D deficiency with D-25OH level of 14 on 07/04/22. -Obtain repeat vitamin D level. Weakness 11/01/2022 Assessment & Plan (11/04/2022 1:59 PM VARNISH THINNER): LE weakness since left TKA on 08/09. [...] OT Assessment & Plan (11/03/2022 6:39 PM VARNISH THINNER): LE weakness since left TKA on 08/09. [...] aware. Assessment & Plan (11/02/2022 7:32 PM VARNISH THINNER): LE weakness since left TKA on 08/09. [...] aware. Assessment & Plan (11/01/2022 7:03 PM VARNISH THINNER): LE weakness since left TKA on 08/09. [...] 11/01/2022 Assessment & Plan (11/04/2022 1:57 PM VARNISH THINNER): C/w coreg. Cr improve and torsemide was restarted. Assessment & Plan (11/03/2022 6:40 PM VARNISH THINNER): C/w coreg. Hold torsemide due to RENETTA Assessment & Plan (11/02/2022 7:26 PM VARNISH THINNER): C/w coreg. Hold torsemide due to RENETTA Assessment & Plan (11/01/2022 7:06 PM VARNISH THINNER): C/w coreg and torsemide Knee pain 08/09/2022 Primary osteoarthritis of left knee 05/24/2022 Overview (05/24/2022): Added automatically from request for surgery [id number] ICD (implantable cardioverter-defibrillator) in place 01/15/2021 Overview (12/20/2021): Last Assessment & Plan: [facility] WNL in August. Assessment & Plan (11/03/2022 6:40 PM VARNISH THINNER): EP is on board regarding MRI Assessment & Plan (11/02/2022 7:25 PM VARNISH THINNER): Plan is spine MRI. EP is on board Assessment & Plan (11/01/2022 7:06 PM VARNISH THINNER): Plan is spine MRI. EP consult. Acute right heart failure 10/23/2020 Morbid obesity ([facility]) 09/03/2020 Assessment & Plan (11/04/2022 1:56 PM VARNISH THINNER): . Assessment & Plan (11/03/2022 6:40 PM VARNISH THINNER): . Assessment & Plan (11/02/2022 7:25 PM VARNISH THINNER): . Assessment & Plan (11/01/2022 7:05 PM VARNISH THINNER): . Severe obesity 05/24/2019 Primary osteoarthritis of [...] GDMT. Assessment & Plan (11/04/2022 1:58 PM VARNISH THINNER): -Chronic without acute exacerbation, s/p ICD. [facility]. -Continue home GDMT with Entresto, Coreg and Jardiance. -Is euvolemic. Because increase Cr, torsemide 20mg daily was hold om 11/04. Cr improve and today Torsemide was restarted. - Strict I/O Assessment & Plan (11/03/2022 6:41 PM VARNISH THINNER): -Chronic without acute exacerbation, s/p ICD. [facility]. -Continue home GDMT with Entresto, Coreg and Jardiance. -Is euvolemic. Because increase Cr, torsemide 20mg daily was hold. - Strict I/O Assessment & Plan (11/02/2022 7:31 PM VARNISH THINNER): -Chronic without acute exacerbation, s/p ICD. [facility] follows [facility]. -Continue home GDMT with Entresto, Coreg and Jardiance. -Is euvolemic. Because increase Cr, torsemide 20mg daily was hold. - Strict I/O Assessment & Plan (11/01/2022 7:07 PM VARNISH THINNER): -Chronic without acute exacerbation, s/p ICD. [facility]. -Continue home GDMT with Entresto, Coreg and Jardiance. -Continue diuresis with torsemide 20mg daily. Assessment & Plan (11/01/2022 5:08 AM VARNISH THINNER): -Chronic without acute exacerbation, s/p ICD. Patient follows with [facility] cardiology. -Continue home GDMT with Entresto, Coreg and Jardiance. -Continue diuresis with torsemide 20mg daily. Anxiety disorder 07/26/2017 Assessment & Plan (11/04/2022 1:59 PM VARNISH THINNER): -Continue home Wellbutrin. Assessment & Plan (11/03/2022 6:42 PM VARNISH THINNER): -Continue home Wellbutrin. Assessment & Plan (11/02/2022 7:29 PM VARNISH THINNER): -Continue home Wellbutrin. Assessment & Plan (11/01/2022 7:08 PM VARNISH THINNER): -Continue home Wellbutrin. Assessment & Plan (11/01/2022 5:06 AM VARNISH THINNER): -Continue home Wellbutrin. Presence of coronary angioplasty [...] and Coreg. Atherosclerotic heart diseas e of [place] coronary artery with other forms of angina pectoris 05/30/2017 Coronary atherosclerosis 05/30/2017 Dependence on other enabling machines and device s 05/26/2017 Overview (12/08/2021): AHI 6 but severe at home AHI 6 but severe at home Dizziness and giddiness 05/26/2017 CAD (coronary artery disease) 05/26/2017 Overview (12/08/2021): elevated fulling pressure elevated fulling pressure Assessment & Plan (11/04/2022 1:59 PM VARNISH THINNER): -S/p CABG, continue aspirin, Brilinta and atorvastatin for secondary prevention. Assessment & Plan (11/03/2022 6:41 PM VARNISH THINNER): -S/p CABG, continue aspirin, Brilinta and atorvastatin for secondary prevention. Assessment & Plan (11/02/2022 7:29 PM VARNISH THINNER): -S/p CABG, continue aspirin, Brilinta and atorvastatin for secondary prevention. Assessment & Plan (11/01/2022 7:08 PM VARNISH THINNER): -S/p CABG, continue aspirin, Brilinta and atorvastatin for secondary prevention. Assessment & Plan (11/01/2022 5:11 AM VARNISH THINNER): -S/p CABG, continue aspirin, Brilinta and atorvastatin [...]
--- OUTSIDE RECORDS SUMMARY | 2025-04-14 10:09 | XMS_ITS | Clinical Summary ---
Author Organization [facility] Address [address] [place] [id number] Care Team Providers Care Analytical Lab Analyst Name Role Phone Unavailable Primary Care Provider [...]
--- OUTSIDE RECORDS SUMMARY | 2025-04-14 10:09 | XMS_ITS | Clinical Summary ---
Author Organization [facility] Address [address] [place] [address] Care Team Providers Care Chaplain Resident Name Role Phone Jimmie Arias MD Primary [...] Comments Blood Pressure 105/66 08/31/2023 3:15 PM UNDERWRITING DIRECTOR Pulse 49 08/31/2023 3:29 PM UNDERWRITING DIRECTOR Temperature 36.1 C (96.9 F) 08/31/2023 11:25 AM UNDERWRITING DIRECTOR Respiratory Rate 15 08/31/2023 2:45 PM UNDERWRITING DIRECTOR Oxygen Saturation 99% 08/31/2023 3:29 PM UNDERWRITING DIRECTOR Inhaled Oxygen Concentration - - Weight 139.2 kg (306 lb 14.1 oz) 2022 11:19 AM UNDERWRITING DIRECTOR Height 182.9 cm (6') 08/31/2023 11:19 AM UNDERWRITING DIRECTOR Body Mass Index 41.62 08/31/2023 11:19 AM UNDERWRITING DIRECTOR Plan of Treatment Health Maintenance Due Date Last Done Comments Hepatitis C Virus (HCV) Screening 1960 TdaP Immunization 1960 Cologuard 2005 Colonoscopy 2005 Colorectal Cancer Screening 2005 Immunochemical Fecal Occult Blood 2005 Pneumococcal Immunization (5 0+ years) (1 of 1 - PCV) 2010 Zoster Immunization (1 of 2) 2010 PSA Discussion 2015 Respiratory Syncytial Virus (RSV) Immunization (Adult) (1 - Risk 60-74 years 1-dose series) 2020 SARS-COV-2 Immunization (1 - ) 05/19/2024 Influenza Immunization (#1) 2025 Hepatitis B Immunization Aged Out No longer eligible based on patient's age to complete this topic Human Papillomavirus (HPV) Immunization Aged Out No longer eligible b ased on patient's age to complete this topic Meningococcal Immunization (ACWY) Aged Out No longer eligible based on patient's age to complete this topic Rotavirus Immunization Aged Out No lo nger eligible based on patient's age to complete this topic Insurance MEDICAID [employer] Care Teams Chaplain Resident Relationship Specialty Start Date End Date Jimmie Arias MD [address] [place] [address] PCP - General Pediatrics 05/31/22
--- OUTSIDE RECORDS SUMMARY | 2025-04-14 10:09 | XMS_ITS | Clinical Summary ---
Author Organization [facility] Address [address] [place] [id number] Phone Care Team Providers Care Bell Staff Name Role Phone Jimmie Arias MD Primary Care Provider [phone] Allergies Active Allergy Reactions Criticality Noted Date [...] Due Date Last Done Comments Influenza Vaccine (#1) 2025 Insurance [employer] Care Teams Bell Staff Relationship Specialty Start Date End Date Jimmie Arias MD [address] [place] [phone] PCP - General Internal Medicine 04/19/20
--- OUTSIDE RECORDS SUMMARY | 2025-04-14 10:09 | XMS_ITS | Clinical Summary ---
Author Organization [facility] Address [address] [address] Care Team Providers [facility] Professor Name Role Phone Jimmie Arias MD Primary Care Provider Miguelito Osborne MD Unavailable [phone] Curtis Maddox MD Unavailable [phone] Melissa Feng MD Unavailable Vignesh Denton CD Unavailable [phone] Source Comments [facility],non-owned Affiliates and Associated Physician Practices is amultiple site organization consisting of ambulatory clinics and hospital sitesin [place], [place], [place] and [place]. This disclosure is being madepursuant to the Care Everywhere program and may not contain all information available regarding this patient. Last updated 18.[facility] Allergies Active Allergy Reactions Criticality Noted Date Comments Lorazepam Psychiatric Medium 01/20/2018 Hydrocodone Vomiting Low 07/26/2022 Medications * Be aware that medications may not be up to date on this document. Alwaysverify current medications with the patient. Cyanocobalamin (VITAMIN B 12) 100 MCG Take 1,000 mcg by mouth BID. 06/12/20 17 Active aspirin (ASPIRIN) 81 MG tablet Take 1 (one) tablet by mouth DAILY 05/26/20 17 Active allopurinol (ZYLOPRIM) 100 MG tablet Take 1 (one) tablet by mouth 2 times daily Active buPROPion XL 24hr (WELLBUTRIN-XL) 300 MG tablet Take 450 mg by mouth every morning Active gabapentin (NEURONTIN) 400 MG capsule Take 1 (one) capsule by mouth 3 times daily 03/26/20 20 Active B Complex Vitamins (B COMPLEX PO) Activ e fluticasone propionate (Flonase) 50 MCG/ACT nasal spray [place] 1 (one) spray into each nostril once daily 01/28/20 25 Active atorvastatin (Lipitor) 40 MG tablet Take 1 (one) tablet by mouth at bedtime 90 tablet 3 02/12/20 25 Active carvedilol (Coreg) 25 MG tabletIndications: Atherosclerotic heart disease of [place] coronary artery with other forms of angina pectoris,Chronic combined systolic and diastolic congestive heart failure (HCC),Ventricular fibrillation (HCC),Presence of coronary angioplasty implant and graft Take 1 (one) tablet by mouth 2 times daily with morning and evening meal 180 tablet 3 02/12/20 25 Active potassium chloride ER (Klor-Con M) 20 MEQ tabletIndications: Atherosclerotic heart disease of [place] coronary artery with other forms of angina pectoris,Type 2 diabetes mellitus with diabetic neuropathy, without long-term current use of insulin ([facility]),Essential (primary) hypertension,Type 2 diabetes mellitus with complication, without long-term current use of insulin ([facility]),Abnormal result of other cardiovascular function study,Chronic combined systolic and diastolic congestive heart failure (HCC),Ventricular fibrillation (HCC),Presence of coronary angioplasty implant and graft,Hypertensive heart disease without heart failure Take 1 (one) tablet by mouth once daily 180 tablet 3 02/12/20 25 Active sacubitril-valsart an (Entresto) 49-51 MG tablet Take 1 (one) tablet by mouth 2 times daily 180 tablet 3 02/12/20 25 Active ticagrelor (Brilinta) 90 MG tabletIndications: Atherosclerotic heart disease of [place] coronary artery with other forms of angina pectoris,Celluliti s of right lower extremity,Type 2 diabetes mellitus with diabetic neuropathy, without long-term current use of insulin ([facility]),Essential (primary) hypertension,Type 2 diabetes mellitus with complication, without long-term current use of insulin ([facility]),Abnormal result of other cardiovascular function study,Obstructive sleep apnea,Heart disease,Chronic combined systolic and diastolic congestive heart failure (HCC) Take 1 (one) tablet by mouth 2 times daily 180 tablet 3 02/12/20 Active torsemide (Demadex) 20 MG tablet Take 2 (two) tablets by mouth once daily 90 tablet 3 02/12/20 Active Trulicity 0.75 MG/0.5ML injection Inject 0.75 (three-quarters) mg subcutaneously every 7 days (once a week) 01/29/20 Active Hospital, Clinic, or Other Facility Administered Medication Ordered Dose Route Frequency Start Date End Date Status semaglutide (Wegovy) pen 0.25 mgIndications:Myocardial Infarction,Obesity 0.25 mg SC EVERY 7 DAYS 02/28/2025 03/28/2025 Ende d Active Problems Problem Noted Date Diagnosed Date ICD (implantable cardioverter-defibrillator) in place 01/15/2021 Assessment & Plan (04/11/2024 11:25 AM CDT): Device interrogation today. Appropriate function. No arrhtythmias. He does not have a working gateway at home. Planning to have a new one mailed per the device nurse. Assessment & Plan (09/16/2021 1:01 PM HISTOLOGY AIDE): Latitude WNL in August. Assessment & Plan (08/10/2021 12:50 PM HISTOLOGY AIDE): Latitude scheduled for August. Assessment & Plan [...] place Assessment & Plan (09/16/2021 1:02 PM HISTOLOGY AIDE): ICM: SP CABG in 2016, Chronic Combined [...] GDMT. Assessment & Plan (08/10/2021 1:02 PM HISTOLOGY AIDE): ICM: Chronic Combined Systolic Heart Failure. NYHA [...] GDMT. Assessment & Plan (11/23/2020 1:17 PM HISTOLOGY AIDE): ICM: Chronic Combined Systolic Heart Failure. NYHA [...] 07/26/2017 Assessment & Plan (11/23/2020 1:09 PM HISTOLOGY AIDE): Stable denies chest pain. Continue ASA and Brilinta, BB and statin, change to Entresto. Type 2 diabetes mellitus with diabetic neuropath y 07/06/2017 Overview (12/18/2017): bad in legs Ventricular fibrillation 07/06/2017 Assessment & Plan (09/16/2021 1:01 PM HISTOLOGY AIDE): No events. Amio stopped, continue BB. Assessment & Plan (08/10/2021 12:47 PM HISTOLOGY AIDE): No events. Amio stopped, continue BB. Assessment & Plan (05/14/2021 1:18 PM CDT): No events. Amio stopped, continue BB. Assessment & Plan (11/23/2020 3:45 PM HISTOLOGY AIDE): SP ICD implant, no events. Would favor [...] and Coreg. Atherosclerotic heart diseas e of [place] coronary artery with other forms of angina [...] Encounters Date Type Department Care Team Description 02/25/2025 11:00 AM CDT Office Visit [facility] - Cardiology [address] [facility], [address] [address] Marine Odell APRN-FISH PROCESSOR Stage 4 chronic kidney disease (HCC) (Primary Dx); Essential (primary) hypertension; Type 2 diabetes mellitus with diabetic neuropathy, without long-term current use of insulin (HCC); Class 3 severe obesity with serious comorbidity and body mass index (BMI) of 45.0 to 49.9 in adult, unspecified obesity type (HCC); Heart failure with mildly reduced ejection fraction (HFmrEF, 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); Coronary artery disease involving [place] heart without angina pectoris, unspecified vessel or lesion type 02/25/2025 10:00 AM CDT Ancillary Procedure [facility] - Echosonography [address] [facility], [facility] [address] [place] [address] Chronic combined systolic and diastolic congestive heart failure (HCC) 02/25/2025 Travel 02/11/2025 10:30 AM CDT Office Visit [facility] - Cardiology [address], [address] [address] Kya Garcia APRN-KYLE Atherosclerotic heart disease of [place] coronary artery with other forms of angina pectoris (Primary Dx); Cellulitis of right lower extremity; Type 2 diabetes mellitus with diabetic neuropathy, without long-term current use of insulin (HCC); Essential (primary) hypertension; Type 2 diabetes mellitus with complication, without long-term current use of insulin (HCC); Abnormal result of other cardiovascular function study; Obstructive sleep apnea; Heart disease; Chronic combined systolic and diastolic congestive heart failure (HCC); Ventricular fibrillation (HCC); Presence of coronary angioplasty implant and graft; Hypertensive heart disease without heart failure 02/11/2025 Travel 02/06/2025 Travel 02/05/2025 Refill [facility] - Cardiology [address], [address] [place] [address] Miguelito Osborne MD Refill Request 02/05/2025 Refill [facility] - Cardiology [address], [address] [place] [address] Kvng Goddard, CHIEF DEPUTY COURT CLERK-FISH PROCESSOR Refill Request from Last 3 Months Family History Medical [...] on file Legal Sex Male 5:15 PM HISTOLOGY AIDE Gender Identity Not on file Sexual Orientation Not on file Last Filed Vital Signs Vital Sign Reading Time Taken Comments Blood Pressure 130/84 02/25/2025 10:49 AM CDT Pulse 55 02/25/2025 10:49 AM CDT Temperature 36.2 C (97.2 F) 05/14/2021 10:31 AM CDT Respiratory Rate 18 01/12/2019 2:37 PM CDT Oxygen Saturation 97% 02/25/2025 10:49 AM CDT Inhaled Oxygen Concentration - - Weight 145.6 kg (321 lb) 02/25/2025 10:49 AM CDT Height 177.8 cm (5' 10) 02/25/2025 10:49 AM CDT Body Mass Index 46.06 02/25/2025 10:49 AM CDT Plan of Treatment Upcoming Encounters Date Type Department Care Team (Late st Contact Info) Description 05/28/2025 10:45 AM CDT Office Visit [facility] - Cardiology [address], [address] [place] [address] Jeison Parker MD [address] [facility] [address] [place] [address] Health Maintenance Due Date Last Done Comments [...] - URINE PROTEIN SCREENING 09/18/2024 INFLUENZA VACCINE (#1) 2025 HEPATITIS B VACCINE Aged Out No [...] Patient-Stated? Author Mobility General Worsening(04/2022 2:14 PM HISTOLOGY AIDE) No Estela Mcdonough, RN Note: Expected end date: 09/17/2021 The goal is to maintain or improve your mobility at the optimum level for you. Interventions: Procedures Procedure Name Priority Date/Time Associated Diagnosis Comments ECHO COMPLETE W CONTRAST Routine 02/25/2025 10:54 AM CDT Chronic combined systolic and diastolic congestive heart failure (HCC) CARDIAC PROCEDURE ORDER 02/18/2025 CARDIAC PROCEDURE ORDER 02/12/2025 EKG 12-LEAD Routine 02/11/2025 10:48 AM CDT Atherosclerotic heart disease of [place] coronary artery with other forms of angina pectoris CARDIAC PROCEDURE ORDER 02/11/2025 COMPREHENSIVE METABOLIC PANEL STAT 01/12/2019 2:38 PM CDT HEMOGLOBIN A1C Routine 2017 12:20 PM CDT from Last 3 Months or Most Recently Relevant to Health Maintenance Results * ECHO COMPLETE W CONTRAST (02/25/2025 10:54 AM CDT) AV area index 1.484 cm /m [facility] CV FUJI PACS LA vol index 0.019 l/m S[facility] CV [facility]I PACS Dimensionless Index 0.943 unitless SSM CV [facility]I PACS Myocardial strain charge 2 unitless [facility] CV [facility]I PACS IVSd 2D 0.983 cm SSM CV [facility] I PACS LVIDd 6.192 cm SSM CV [facility] I PACS LVIDs 5.27 cm SSM CV [facility] I PACS LVOT diam 2.352 cm SSM CV [facility] I PACS LVPWd 0.896 cm SSM CV [facility] I PACS LV biplane EF 42.946 % [facility] LV A2C EF 45.419 % [facility] CV [facility] I PACS LV A4C EF 39.213 % [facility] CV [facility] I PACS LV EDV A2C 147.857 ml SSM CV FU JI PACS LV EDV A4C 179.923 ml SSM CV [facility]U JI PACS LV ESV A2C 80.702 ml SSM CV FU JI PACS LV ESV A4C 109.37 ml SSM CV FU JI PACS LVOT pk grad 3.972 mmHg [facility] LVOT pk josé 99.645 cm/s SSM CV F U PACS LVOT VTI 24.58 cm SSM CV [facility] I PACS RVOT pk josé 75.522 cm/s SSM CV F U PACS RVOT VTI 17.997 cm SSM CV [facility] I PACS LA vol BP 52.618 ml SSM CV [facility] I PACS RA area 18.826 cm SSM CV [facility] PACS AV area pk josé 3.739 cm SSM CV [facility] PACS AV area cont VTI 4.097 cm SSM CV [facility] PACS AV pk grad 5.366 mmHg SSM CV FU PACS AV mn grad 3.01 mmHg SSM CV FU PACS AV pk josé 115.825 cm/s SSM CV [facility] I PACS AV VTI 26.073 cm SSM CV [facility] I PACS MV A pk josé 102.338 cm/s SSM CV F U PACS MV E pk josé 91.337 cm/s SSM CV F U PACS MV E' lateral josé 5.526 cm/s SS [facility] MV mn grad 2.141 mmHg SSM CV FU PACS MV VTI 38.911 cm SSM CV [facility] I PACS PV pk josé 99.413 cm/s SSM CV [facility] I PACS TR pk josé 188.668 cm/s SSM CV FUJ I PACS Ascending aorta 3.546 cm SSM CV FUJI PACS Sinus of Valsalva 3.407 cm SS M CV FUJI PACS Anatomical Region Laterality Modality Ultrasound 02/25/2025 10:2 3 AM CDT Narrative 02/25/2025 4:02 PM CDT Summary * Technically difficult study. * The left ventricle is normal in size, with mildly reduced systolic function and an estimated ejection fraction of 43 % by biplane method of disks. Left ventricular wall motion is abnormal. * Left ventricular segmental wall motion is abnormal with akinetic apex and remainder of segments being hypokinetic, although endocardial definition is limited despite ultrasound contrast agent. * The left ventricular diastolic function is consistent with grade I diastolic dysfunction. * Right ventricle is not well visualized, but appears grossly normal in size with unable to be assessed systolic function. * No hemodynamically significant valve disease. * The pulmonary artery systolic pressure is normal, 22 mmHg. Patient Info Name: Jeffery Bailey Age: 64 years : 1960 Gender: Male Ht: 70 in Wt: 322 lb BSA: 2.76 m2 HR: 55 bpm BP: 142 / 84 mmHg Heart Rhythm: Sinus Rhythm, Bradycardia Exam Date: 02/25/2025 10:23 AM Patient Status: O Study Site: [facility] Primary Location: [facility] Info Exam Type: ECHO COMPLETE W CONTRAST Indications I50.42 - Chronic combined systolic and diastolic congestive heart failure (HCC) Procedure(s) * A complete 2D, color Doppler, and spectral Doppler transthoracic echocardiogram was performed. * An Ultrasound Enhancing Agent (UEA) was utilized to enhance endocardial definition and opacify the left ventricle. Contrast/Agitated Saline Contrast / Saline: Definity Amount: 1.50 ml Reaction to Contrast: no Reason for Technically Difficult Study: body habitus Staff Referring Physician: Kya Garcia Ordering Provider: Kya Garcia Shear Scrapman: Evette Mo Left Ventricle The left ventricle is normal in size. Left ventricular systolic function is mildly reduced with an estimated ejection fraction of 43 % by biplane method of disks. The left ventricular mass is normal. Left ventricular segmental wall motion is abnormal with akinetic apex and remainder of segments being hypokinetic, although endocardial definition is limited despite ultrasound contrast agent. The left ventricular diastolic function is consistent with grade I diastolic dysfunction. Right Ventricle The right ventricle is not well visualized, but appears grossly normal in size. Right ventricular systolic function is unable to be assessed. Left Atrium The left atrium is normal in size with a left atrial volume index of 19 ml/m2 by BP MOD. Right Atrium The right atrium is normal in size. Atrial Septum Intact interatrial septum visualized by color Doppler imaging. Aortic Valve The aortic valve is not well visualized, but grossly normal and possibly trileaflet. There is no aortic valve stenosis with a peak velocity of 1.2 m/s, mean gradient of 3 mmHg, and aortic valve area of 4.10 cm2. There is no aortic valve regurgitation. Pulmonic Valve The pulmonic valve is not well visualized. There is no pulmonic valve stenosis. There is no pulmonic regurgitation. Mitral Valve The mitral valve is not well visualized, but grossly normal. There is no mitral valve stenosis. There is no mitral valve regurgitation. Tricuspid Valve The tricuspid valve is grossly normal. There is no significant tricuspid valve regurgitation. The pulmonary artery systolic pressure is normal, 22 mmHg. Inferior Vena Cava The inferior vena cava is not well visualized and therefore the right atrial pressure is assumed to be 8 mmHg. Pericardium/Pleural There is no pericardial effusion. Aorta The aortic root at the sinus of Valsalva is normal in size. The ascending aorta is normal in size. Measurements Left Ventricular Outflow Tract Name Value Normal LVOT 2D LVOT Diameter 2.4 cm LVOT Area 4.3 cm2 LVOT Doppler LVOT Peak Velocity 1.0 m/s LVOT Peak Gradient 4 mmHg LVOT Mean Velocity 70.58 cm/s LVOT Mean Gradient 2 mmHg LVOT VTI 24.6 cm LVOT VTI/AV VTI Ratio 0.9 LVOT Stroke Volume 107 ml LVOT Stroke Volume Index 39 ml/m2 35-58 LVOT CO 5.9 l/min LVOT CI 2.1 l/min/m2 Pulmonic Valve Name Value Normal RVOT Doppler RVOT Peak Velocity 0.8 m/s RVOT Peak Gradient 2 mmHg RVOT Mean Gradient 1 mmHg PV Doppler PV Peak Velocity 1.0 m/s PV Peak Gradient 4 mmHg PV Mean Gradient 2 mmHg Mitral Valve Name Value Normal MV Doppler MV Peak Gradient 5 mmHg MV Mean Gradient 2 mmHg MV DI (VTI) 1.58 MV PHT 81 ms MV Area (PHT) 2.72 cm2 4.00-5.00 MV Area (Cont Eq VTI) 2.74 cm2 MV Diastolic Function MV E Peak Velocity 0.9 m/sec MV A Peak Velocity 1.0 m/sec MV E/A 0.9 MV Decel Time (PW) 274 ms MV A Wave Duration 126 ms MV Annular TDI MV Septal e' Velocity 4 cm/s >=8 MV E/e' (Septal) 23 <=8 MV Lateral e' Velocity 6 cm/s >=10 MV E/e' (Lateral) 17 <=8 MV e' Average 5 cm/s MV E/e' (Average) 20 Tricuspid Valve Name Value Normal TV Regurgitation Doppler TR Peak Velocity 1.9 m/s TR Peak Gradient 14 mmHg Estimated PAP/RSVP RA Pressure 8 mmHg <=5 PA Systolic Pressure 22 mmHg <35 RV Systolic Pressure 22 mmHg <36 Aorta Name Value Normal Ascending Aorta Sinus of Valsalva Diameter 3.4 cm 2.8-4.0 Sinus of Valsalva Index 1.2 cm/m2 1.3-2.1 Asc Ao Diameter 3.5 cm 2.2-3.8 Asc Ao Diameter Index 1.3 cm/m2 1.1-1.9 Aortic Valve Name Value Normal AV Doppler AV Peak Velocity 1.16 m/s AV Peak Gradient 5 mmHg AV Mean Gradient 3 mmHg AV VTI 26 cm AV Area (Cont Eq VTI) 4.10 cm2 >=2.00 AV Area (Cont Eq José) 3.74 cm2 AV DI (VTI) 0.94 AV DI (José) 0.86 AV Regurgitation 2D LVOT Area 4.34 cm2 Ventricles Name Value Normal LV Dimensions 2D/MM IVS Diastolic Thickness (2D) 1.0 cm 0.6-1.0 LVID Diastole (2D) 6.2 cm 4.2-5.8 LVPW Diastolic Thickness (2D) 0.9 cm 0.6-1.0 LVID Systole (2D) 5.3 cm 2.5-4.0 LV Mass (2D Cubed) 240 g 88-224 LV Mass Index (2D Cubed) 87 g/m2 49-115 Relative Wall Thickness (2D) 0.29 <=0.42 LV Fractional Shortening/Ejection Fraction 2D/MM LV Fractional Shortening (2D) 15 % 25-43 LV EF (2D Teicholz) 31 % 52-72 LV Diastolic Volume (4C MOD) 180 ml LV EF (4C MOD) 39 % LV Diastolic Volume (2C MOD) 148 ml LV EF (2C MOD) 45 % LV Diastolic Volume (BP MOD) 164 ml 62-150 LV Diastolic Volume Index (BP MOD) 59 ml/m2 34-74 LV Systolic Volume (BP MOD) 94 ml 21-61 LV Systolic Volume Index (BP MOD) 34 ml/m2 11-31 LV EF (BP MOD) 43 % 52-72 LV Diastolic Length (4C) 8.3 cm LV Systolic Length (4C) 8.1 cm LV Stroke Volume (4C MOD) 71 ml Atria Name Value Normal LA Dimensions LA Volume (BP MOD) 53 ml LA Volume Index (BP MOD) 19 ml/m2 16-34 RA Dimensions RA Area (4C) 19 cm2 <=18 RA Area (4C) Index 7 cm2/m2 RA ESV (4C MOD) 55 ml 18-32 RA ESV Index (4C MOD) 20 ml/m2 16-34 Report Signatures Finalized by Shelby Pritchett on 02/25/2025 04:02 PM Procedure Note Shelby Pritchett, DO - 02/25/2025 Summary * Technically difficult study. * The left ventricle is normal in size, with mildly reduced systolic function and an estimated ejection fraction of 43 % by biplane method of disks. Left ventricular wall motion is abnormal. * Left ventricular segmental wall motion is abnormal with akinetic apexand remainder of segments being hypokinetic, although endocardial definitionis limited despite ultrasound contrast agent. * The left ventricular diastolic function is consistent with grade I diastolic dysfunction. * Right ventricle is not well visualized, but appears grossly normal insize with unable to be assessed systolic function. * No hemodynamically significant valve disease. * The pulmonary artery systolic pressure is normal, 22 mmHg. Patient Info Name: Jeffery Bailey Age: 64 years : 1960 Gender: Male Ht: 70 in Wt: 322 lb BSA: 2.76 m2 HR: 55 bpm BP: 142 / 84 mmHg Heart Rhythm: Sinus Rhythm, Bradycardia Exam Date: 02/25/2025 10:23 AM Patient Status: O Study Site: [facility] Primary Location: [facility] Info Exam Type: ECHO COMPLETE W CONTRAST Indications I50.42 - Chronic combined systolic and diastolic congestive heartfailure (HCC) Procedure(s) * A complete 2D, color Doppler, and spectral Doppler transthoracic echocardiogram was performed. * An Ultrasound Enhancing Agent (UEA) was utilized to enhanceendocardial definition and opacify the left ventricle. Contrast/Agitated Saline Contrast / Saline: Definity Amount: 1.50 ml Reaction to Contrast: no Reason for Technically Difficult Study: body habitus Staff Referring Physician: Kya Garcia Ordering Provider: Kya Garcia Shear Scrapman: Evette Mo Left Ventricle The left ventricle is normal in size. Left ventricular systolic functionis mildly reduced with an estimated ejection fraction of 43 % by biplanemethod of disks. The left ventricular mass is normal. Left ventricular segmentalwall motion is abnormal with akinetic apex and remainder of segments being hypokinetic, although endocardial definition is limited despiteultrasound contrast agent. The left ventricular diastolic function is consistentwith grade I diastolic dysfunction. Right Ventricle The right ventricle is not well visualized, but appears grossly normalin size. Right ventricular systolic function is unable to be assessed. Left Atrium The left atrium is normal in size with a left atrial volume index of19 ml/m2 by BP MOD. Right Atrium The right atrium is normal in size. Atrial Septum Intact interatrial septum visualized by color Doppler imaging. Aortic Valve The aortic valve is not well visualized, but grossly normal andpossibly trileaflet. There is no aortic valve stenosis with a peak velocity of 1.2m/s, mean gradient of 3 mmHg, and aortic valve area of 4.10 cm2. There is noaortic valve regurgitation. Pulmonic Valve The pulmonic valve is not well visualized. There is no pulmonic valve stenosis. There is no pulmonic regurgitation. Mitral Valve The mitral valve is not well visualized, but grossly normal. There isno mitral valve stenosis. There is no mitral valve regurgitation. Tricuspid Valve The tricuspid valve is grossly normal. There is no significanttricuspid valve regurgitation. The pulmonary artery systolic pressure is normal,22 mmHg. Inferior Vena Cava The inferior vena cava is not well visualized and therefore the rightatrial pressure is assumed to be 8 mmHg. Pericardium/Pleural There is no pericardial effusion. Aorta The aortic root at the sinus of Valsalva is normal in size. Theascending aorta is normal in size. Measurements Left Ventricular Outflow Tract Name Value Normal LVOT 2D LVOT Diameter 2.4 cm LVOT Area 4.3 cm2 LVOT Doppler LVOT Peak Velocity 1.0 m/s LVOT Peak Gradient 4 mmHg LVOT Mean Velocity 70.58 cm/s LVOT Mean Gradient 2 mmHg LVOT VTI 24.6 cm LVOT VTI/AV VTI Ratio 0.9 LVOT Stroke Volume 107 ml LVOT Stroke Volume Index 39 ml/m2 35-58 LVOT CO 5.9 l/min LVOT CI 2.1 l/min/m2 Pulmonic Valve Name Value Normal RVOT Doppler RVOT Peak Velocity 0.8 m/s RVOT Peak Gradient 2 mmHg RVOT Mean Gradient 1 mmHg PV Doppler PV Peak Velocity 1.0 m/s PV Peak Gradient 4 mmHg PV Mean Gradient 2 mmHg Mitral Valve Name Value Normal MV Doppler MV Peak Gradient 5 mmHg MV Mean Gradient 2 mmHg MV DI (VTI) 1.58 MV PHT 81 ms MV Area (PHT) 2.72 cm2 4.00-5.00 MV Area (Cont Eq VTI) 2.74 cm2 MV Diastolic Function MV E Peak Velocity 0.9 m/sec MV A Peak Velocity 1.0 m/sec MV E/A 0.9 MV Decel Time (PW) 274 ms MV A Wave Duration 126 ms MV Annular TDI MV Septal e' Velocity 4 cm/s >=8 MV E/e' (Septal) 23 <=8 MV Lateral e' Velocity 6 cm/s >=10 MV E/e' (Lateral) 17 <=8 MV e' Average 5 cm/s MV E/e' (Average) 20 Tricuspid Valve Name Value Normal TV Regurgitation Doppler TR Peak Velocity 1.9 m/s TR Peak Gradient 14 mmHg Estimated PAP/RSVP RA Pressure 8 mmHg <=5 PA Systolic Pressure 22 mmHg <35 RV Systolic Pressure 22 mmHg <36 Aorta Name Value Normal Ascending Aorta Sinus of Valsalva Diameter 3.4 cm 2.8-4.0 Sinus of Valsalva Index 1.2 cm/m2 1.3-2.1 Asc Ao Diameter 3.5 cm 2.2-3.8 Asc Ao Diameter Index 1.3 cm/m2 1.1-1.9 Aortic Valve Name Value Normal AV Doppler AV Peak Velocity 1.16 m/s AV Peak Gradient 5 mmHg AV Mean Gradient 3 mmHg AV VTI 26 cm AV Area (Cont Eq VTI) 4.10 cm2 >=2.00 AV Area (Cont Eq José) 3.74 cm2 AV DI (VTI) 0.94 AV DI (José) 0.86 AV Regurgitation 2D LVOT Area 4.34 cm2 Ventricles Name Value Normal LV Dimensions 2D/MM IVS Diastolic Thickness (2D) 1.0 cm 0.6-1.0 LVID Diastole (2D) 6.2 cm 4.2-5.8 LVPW Diastolic Thickness (2D) 0.9 cm 0.6-1.0 LVID Systole (2D) 5.3 cm 2.5-4.0 LV Mass (2D Cubed) 240 g 88-224 LV Mass Index (2D Cubed) 87 g/m2 49-115 Relative Wall Thickness (2D) 0.29 <=0.42 LV Fractional Shortening/Ejection Fraction 2D/MM LV Fractional Shortening (2D) 15 % 25-43 LV EF (2D Teichcarlie) 31 % 52-72 LV Diastolic Volume (4C MOD) 180 ml LV EF (4C MOD) 39 % LV Diastolic Volume (2C MOD) 148 ml LV EF (2C MOD) 45 % LV Diastolic Volume (BP MOD) 164 ml 62-150 LV Diastolic Volume Index (BP MOD) 59 ml/m2 34-74 LV Systolic Volume (BP MOD) 94 ml 21-61 LV Systolic Volume Index (BP MOD) 34 ml/m2 11-31 LV EF (BP MOD) 43 % 52-72 LV Diastolic Length (4C) 8.3 cm LV Systolic Length (4C) 8.1 cm LV Stroke Volume (4C MOD) 71 ml Atria Name Value Normal LA Dimensions LA Volume (BP MOD) 53 ml LA Volume Index (BP MOD) 19 ml/m2 16-34 RA Dimensions RA Area (4C) 19 cm2 <=18 RA Area (4C) Index 7 cm2/m2 RA ESV (4C MOD) 55 ml 18-32 RA ESV Index (4C MOD) 20 ml/m2 16-34 Report Signatures Finalized by Shelby Pritchett on 02/25/2025 04:02 PM us Kya Jose MARIN-FISH PROCESSOR ECHO CUPID Final Resu lt * CARDIAC PROCEDURE ORDER (02/18/2025) Only the most recent of3 resultswithin the time period is included. Narrative 02/18/2025 Ordered by an unspecified provider. Scanned Document CARDIAC SERVICES ORDERABLES Fin al Result * EKG 12-Lead (02/11/2025 10:48 AM CDT) [facility] Ventricular Rate 65 BPM [facility] Atrial Rate 65 BPM [facility] P-R Interval 162 ms [facility] QRS Duration ms 92 ms [facility] Q-T Interval ms 440 ms [facility] QTC Calculation (Bezet) 457 ms [facility] Calculated P [place] 43 degrees [facility] Calculated R [place] -27 degrees [facility] Calculated T [place] 46 degrees [facility] Interpretation EKG SINUS RHYTHM WITH OCCASIONAL PREMATURE VENTRICULAR COMPLEXES ANTEROSEPTAL INFARCT (CITED ON OR BEFORE 19-JUN-2017) T WAVE ABNORMALITY, CONSIDER LATERAL ISCHEMIA ABNORMAL ECG WHEN COMPARED WITH ECG OF 28-AUG-2023 10:21, PREMATURE VENTRICULAR COMPLEXES ARE NOW PRESENT INVERTED T WAVES HAVE REPLACED NONSPECIFIC T WAVE ABNORMALITY IN ANTERIOR LEADS QT HAS LENGTHENED Confirmed by FLORECITA ESPAÑA, SANJIV GUZMAN ([id number]) on 02/22/2025 6:38:49 PM [facility] 02/11/2025 10:4 8 AM CDT 02/22/2025 6:38 PM CDT Kya Jose CHIEF DEPUTY COURT CLERK-FISH PROCESSOR ECG ORDERABLES Edited Res ult - Final [facility]IG[facility] * (ABNORMAL) COMPREHENSIVE METABOLIC PANEL (01/12/2019 2:38 PM CDT) [facility] BUN 21 7 - 26 mg/dL 01/12/2019 3:06 PM CDT [facility] Creatinine 1.5(H) 0.6 - 1.2 mg/dL 01/12/2019 3:06 PM CDT [facility] Sodium 139 136 - 145 mmol/L 01/12/2019 3:06 PM [facility] Potassium 4.7(H) 3.5 - 4.5 mmol/L 01/12/2019 3:06 PM [facility] Chloride 109(H) 98 - 107 mmol/L 01/12/2019 3:06 PM [facility] CO2 19(L) 22 - 29 mmol/L 01/12/2019 3:06 PM [facility] Glucose 111 70 - 115 mg/dL 01/12/2019 3:06 PM [facility] Calcium 9.4 8.4 - 10.2 mg/dL 01/12/2019 3:06 PM [facility] Protein Total 6.9 6.0 - 8.3 g/dL 01/12/2019 3:06 PM [facility] Albumin 3.4 3.4 - 5.0 g/dL 01/12/2019 3:06 PM [facility] Bilirubin Total 0.6 0.2 - 1.2 mg/dL 01/12/2019 3:06 PM [facility] Alkaline Phosphatase 94 40 - 150 Units/L 01/12/2019 3:06 PM [facility] ALT 56(H) 0 - 55 Units/L 01/12/2019 3:06 PM [facility] AST 40(H) 5 - 34 Units/L 01/12/2019 3:06 PM [facility] Anion Gap 16 8 - 18 01/12/2019 3:06 PM [facility] BUN/Creatinine Ratio 14 7 - 23 01/12/2019 3:06 PM [facility] Osmolality Calculated 292 270 - 300 mOsm/kg 01/12/2019 3:06 PM [facility] Albumin/Globulin Ratio 1.0(L) 1.1 - 2.3 01/12/2019 3:06 PM [facility] eGFR 48(L) >60 mL/min/1.7 3 m2 01/12/2019 3:06 PM [facility] Blood BLOOD SPECIMEN / Unknown Venipuncture / Unknown 01/12/2019 2:38 PM CDT 01/12/2019 2:38 PM T us Lucio Gunderson MD LAB - CHEMISTRY ORDERABLES F inal Result [address] [phone] * (ABNORMAL) HEMOGLOBIN A1C (2017 12:20 PM CDT) Hemoglobin A1c 6.5(H) 4.4 - 6.3 % [facility] Estimated Average Glucose 140 mg/dL [facility] Comment: HbA1c Interpretation: Treatment target values recommended by ADA and other clinical organizations should be used to evaluate metabolic control in patients. Treatment Target Values: Normal : < 5.7% Pre-diabetes: 5.7-6.4% Diabetes: Equal to or greater than 6.5% Reference: [place] [employer] Standards of Care in Diabetes -2014 In patients 70 years and older consider HbA1c target range of 7.0-7.5% Reference: Diabetes Mellitus in Older People: Position Statement on behalf of the International Association of Gerontology and Geriatrics (IAGG), the Diabetes Working Democrat for Older People (EDWPOP), and the International Task Force of Experts in Diabetes. Oz Paige, et al. J [place] [employer] Association. 2012 Test results diagnostic [...] 12:20 PM CDT 2017 12:24 PM CDT Rica Frias MD LAB - CHEMISTRY ORDERABLES Final Result Performing Organization Address City/[facility]/ZIP Co de Phone Number [address] [phone] from Last 3 Months or Most Recently Relevant to Health Maintenance Insurance [facility] Care Teams Home And Family Living Professor Relationship Specialty Start Date End Date Jimmie Arias MD [address] [place] [address] PCP - General 10/23/14 Miguelito Osborne MD [address] [place] [address] [phone] Agency Manager Cardiology 06/05/19 Curtis Maddox MD [address] [phone] Neurologist Neurology 06/05/19 Melissa Feng MD [address] [place] [phone] Cartoon Animator Nephrology 06/05/19 Vignesh Denton, VIRGILIO [address] [place] [phone] Agency Manager Cardiology 06/05/19
--- OUTSIDE RECORDS SUMMARY | 2025-04-14 10:09 | XMS_ITS | Clinical Summary ---
Author Organization [facility] [address] Address [address] [place] [address] Care Team Providers Care General Pediatrician Name Role Phone Jimmie Arias MD Primary Care Provide r Allergies Active Allergy Reactions Criticality Noted Date Comments Hydrocodone Vomiting Low 07/26/2022 Lorazepam Agitation,Delusions, Lucho lucinations,Mental status changes Medium 01/20/2018 Other reaction(s): Psychiatric Medications allopurinoL (ZYLOPRIM) 100 mg tabletIndication s:prevention of acute gout attack Take 1 tablet (100 mg total) by mouth extrusion press supervisor before breakfast 0 Active gabapentin (NEURONTIN) 400 [...] 1 tablet (450 mg total) by mouth extrusion press supervisor before breakfast 4 Active amoxicillin 500 mg [...] 11/01/2022 Assessment & Plan (11/04/2022 1:57 PM LOGISTICS OFFICER): See weakness Assessment & Plan (11/03/2022 6:40 PM LOGISTICS OFFICER): See weakness Assessment & Plan (11/02/2022 7:26 PM LOGISTICS OFFICER): See weakness Assessment & Plan (11/01/2022 7:07 PM LOGISTICS OFFICER): See weakness Assessment & Plan (11/01/2022 5:10 AM LOGISTICS OFFICER): -Likely secondary to deconditioning and obesity, will rule out organic causes with MRI spine. -Obtain vitamin B12, recent TSH wnl. -PT/OT eval, hold doxazosin due to fall risk. RENETTA (acute kidney injury) 11/01/2022 Assessment & Plan (11/04/2022 2:01 PM LOGISTICS OFFICER): BL Cr 1.7s to 1.9. On arrival Cr was 1.89 and was up to 2.03. Torsemide was hold on 11/03. Today Cr is 1.65 Assessment & Plan (11/03/2022 6:43 PM LOGISTICS OFFICER): BL Cr 1.7s to 1.9. On arrival Cr was 1.89. Yesterday Cr was 2.03. Pt is dry on exam. Hold torsemide. Strict I/O. Today Cr is 1.92 Assessment & Plan (11/02/2022 7:31 PM LOGISTICS OFFICER): BL Cr 1.7s to 1.9. On arrival Cr was 1.89. Today is 2.03. Pt is dry on exam. Hold torsemide. Strict I/O. CTM Assessment & Plan (11/01/2022 7:07 PM LOGISTICS OFFICER): BL Cr 1.7s to 1.9. - Cr is stable - CTM Assessment & Plan (11/01/2022 5:10 AM LOGISTICS OFFICER): -Cr stable, continue to monitor. Vitamin D deficiency 11/01/2022 Assessment & Plan (11/04/2022 1:56 PM LOGISTICS OFFICER): vitamin D deficiency with D-25OH level of 14 on 07/04/22. - Start ergocalciferol weekly x 12 weeks Assessment & Plan (11/03/2022 6:33 PM LOGISTICS OFFICER): vitamin D deficiency with D-25OH level of 14 on 07/04/22. - Start ergocalciferol weekly Assessment & Plan (11/02/2022 7:25 PM LOGISTICS OFFICER): vitamin D deficiency with D-25OH level of 14 on 07/04/22. - Start ergocalciferol weekly Assessment & Plan (11/01/2022 7:05 PM LOGISTICS OFFICER): vitamin D deficiency with D-25OH level of 14 on 07/04/22. - Start ergocalciferol weekly Assessment & Plan (11/01/2022 5:13 AM LOGISTICS OFFICER): -Patient with prior vitamin D deficiency with D-25OH level of 14 on 07/04/22. -Obtain repeat vitamin D level. Weakness 11/01/2022 Assessment & Plan (11/04/2022 1:59 PM LOGISTICS OFFICER): LE weakness since left TKA on 08/09. [...] OT Assessment & Plan (11/03/2022 6:39 PM LOGISTICS OFFICER): LE weakness since left TKA on 08/09. [...] aware. Assessment & Plan (11/02/2022 7:32 PM LOGISTICS OFFICER): LE weakness since left TKA on 08/09. [...] aware. Assessment & Plan (11/01/2022 7:03 PM LOGISTICS OFFICER): LE weakness since left TKA on 08/09. [...] 11/01/2022 Assessment & Plan (11/04/2022 1:57 PM LOGISTICS OFFICER): C/w coreg. Cr improve and torsemide was restarted. Assessment & Plan (11/03/2022 6:40 PM LOGISTICS OFFICER): C/w coreg. Hold torsemide due to RENETTA Assessment & Plan (11/02/2022 7:26 PM LOGISTICS OFFICER): C/w coreg. Hold torsemide due to RENETTA Assessment & Plan (11/01/2022 7:06 PM LOGISTICS OFFICER): C/w coreg and torsemide Knee pain 08/09/2022 Primary osteoarthritis of left knee 05/24/2022 Overview (05/24/2022): Added automatically from request for surgery [id number] ICD (implantable cardioverter-defibrillator) in place 01/15/2021 Overview (12/20/2021): Last Assessment & Plan: Latitude WNL in August. Assessment & Plan (11/03/2022 6:40 PM LOGISTICS OFFICER): EP is on board regarding MRI Assessment & Plan (11/02/2022 7:25 PM LOGISTICS OFFICER): Plan is spine MRI. EP is on board Assessment & Plan (11/01/2022 7:06 PM LOGISTICS OFFICER): Plan is spine MRI. EP consult. Acute right heart failure 10/23/2020 Morbid obesity (CMS/HCC) 09/03/2020 Assessment & Plan (11/04/2022 1:56 PM LOGISTICS OFFICER): . Assessment & Plan (11/03/2022 6:40 PM LOGISTICS OFFICER): . Assessment & Plan (11/02/2022 7:25 PM LOGISTICS OFFICER): . Assessment & Plan (11/01/2022 7:05 PM LOGISTICS OFFICER): . Severe obesity 05/24/2019 Primary osteoarthritis of [...] GDMT. Assessment & Plan (11/04/2022 1:58 PM LOGISTICS OFFICER): -Chronic without acute exacerbation, s/p ICD. Patient follows with [facility]. -Continue home GDMT with Entresto, Coreg and Jardiance. -Is euvolemic. Because increase Cr, torsemide 20mg daily was hold om 11/04. Cr improve and today Torsemide was restarted. - Strict I/O Assessment & Plan (11/03/2022 6:41 PM LOGISTICS OFFICER): -Chronic without acute exacerbation, s/p ICD. Patient follows with [facility]. -Continue home GDMT with Entresto, Coreg and Jardiance. -Is euvolemic. Because increase Cr, torsemide 20mg daily was hold. - Strict I/O Assessment & Plan (11/02/2022 7:31 PM LOGISTICS OFFICER): -Chronic without acute exacerbation, s/p ICD. Patient follows with [facility]. -Continue home GDMT with Entresto, Coreg and Jardiance. -Is euvolemic. Because increase Cr, torsemide 20mg daily was hold. - Strict I/O Assessment & Plan (11/01/2022 7:07 PM LOGISTICS OFFICER): -Chronic without acute exacerbation, s/p ICD. Patient follows with [facility]. -Continue home GDMT with Entresto, Coreg and Jardiance. -Continue diuresis with torsemide 20mg daily. Assessment & Plan (11/01/2022 5:08 AM LOGISTICS OFFICER): -Chronic without acute exacerbation, s/p ICD. Patient [facility] with [facility] cardiology. -Continue home GDMT with Entresto, Coreg and Jardiance. -Continue diuresis with torsemide 20mg daily. Anxiety disorder 07/26/2017 Assessment & Plan (11/04/2022 1:59 PM LOGISTICS OFFICER): -Continue home Wellbutrin. Assessment & Plan (11/03/2022 6:42 PM LOGISTICS OFFICER): -Continue home Wellbutrin. Assessment & Plan (11/02/2022 7:29 PM LOGISTICS OFFICER): -Continue home Wellbutrin. Assessment & Plan (11/01/2022 7:08 PM LOGISTICS OFFICER): -Continue home Wellbutrin. Assessment & Plan (11/01/2022 5:06 AM LOGISTICS OFFICER): -Continue home Wellbutrin. Presence of coronary angioplasty [...] and Coreg. Atherosclerotic heart diseas e of [place] coronary artery with other forms of angina pectoris 05/30/2017 Coronary atherosclerosis 05/30/2017 Dependence on other enabling machines and device s 05/26/2017 Overview (12/08/2021): AHI 6 but severe at home AHI 6 but severe at home Dizziness and giddiness 05/26/2017 CAD (coronary artery disease) 05/26/2017 Overview (12/08/2021): elevated fulling pressure elevated fulling pressure Assessment & Plan (11/04/2022 1:59 PM LOGISTICS OFFICER): -S/p CABG, continue aspirin, Brilinta and atorvastatin for secondary prevention. Assessment & Plan (11/03/2022 6:41 PM LOGISTICS OFFICER): -S/p CABG, continue aspirin, Brilinta and atorvastatin for secondary prevention. Assessment & Plan (11/02/2022 7:29 PM LOGISTICS OFFICER): -S/p CABG, continue aspirin, Brilinta and atorvastatin for secondary prevention. Assessment & Plan (11/01/2022 7:08 PM LOGISTICS OFFICER): -S/p CABG, continue aspirin, Brilinta and atorvastatin for secondary prevention. Assessment & Plan (11/01/2022 5:11 AM LOGISTICS OFFICER): -S/p CABG, continue aspirin, Brilinta and atorvastatin [...] Site/Laterality Comments CARDIAC DEFIBRILLATOR PLACEMENT 06/25/2017 Left [facility] ICD - Model # D140 CORONARY ARTERY BYPASS GRAFT 06/19/2017 RUVALCABA-LAD, SVG-Diag, SVG-PDA, endsoscopic vein harvest AL RPR ANOM CORONARY ARTERY PULM ART ORIGIN [...] on file Legal Sex Male 8:56 PM LOGISTICS OFFICER Gender Identity Male 08/31/2020 8:23 PM LOGISTICS OFFICER Sexual Orientation Straight 08/31/2020 8: 23 PM LOGISTICS OFFICER Obstetrics History Last Filed Vital Signs Vital [...] 4:20 PM CDT Height 177.8 cm (5' 10) 02/06/2024 2:50 PM CDT Body Mass Index [...] 01/17, 02/08/2024, Additional history exists Influenza Vaccine (#1) 2025 Goals Goal Patient Goal Type Associated Problems Recent Progress Patient-Stated? Author Patient will have kept initial appointment and will show signs of improvement to baseline Care Plan Initial Follow-Up Appointment Roista Ibrahim RN Medical Devices Implanted Type Area Knot Bumper Device Identifier Shelf Expiration Date Model / Serial / Lot [employer] Icd D140-07/05/2017 Implanted:07/05 (Quantity not on file) ICD Chest [employer] C.R.M. D140 / [id number] / [employer] Rv Lead 0293-07/05/2017 Implanted:07/05 (Quantity not on file) Lead Heart [employer] C.R.M. 0293 / [id number] / Stent Implanted:Qty: 3 Stent Chest [employer] Attune Cruciate Retain Cementless Knee Left 7 Component Femoral [id number] - [id number] Implanted:Qty: 1 on 08/09/2022 by Candido Ramirez MD at [facility] Left: Knee [employer] [id number] 10/18/2031 [id number] / / [id number] [employer] Attune Fb Tib Base Sz 6 Por [id number] - [id number] Implanted:Qty: 1 on 08/09/2022 by Candido Ramirez MD at [facility] Left: Knee [employer] 01/16/2032 [id number] / / [id number] [employer] Insert Attune Left Medial Stabilized Size 7 10mm [id number] - [id number] Implanted:Qty: 1 on 08/09/2022 by Candido Ramirez MD at [facility] Left: Knee [employer] 03/17/2030 [id number] / / [id number] [employer] Attune Fb Tib Base Sz 7 Por [id number] - [id number] Implanted:Qty: 1 on 02/06/2024 by Candido Ramirez MD at [facility] Right: Knee [employer] [id number] 01/16/2032 [id number] / / [id number] [employer] Attune Cruciate Retain Cementless Knee Right 7 Component Femoral [id number] - [id number] Implanted:Qty: 1 on 02/06/2024 by Candido Ramirez MD at [facility] Right: Knee [employer] [id number] 12/16/2032 [id number] / / [id number] [employer] Insert Attune Right Medial Stabilized Size 7 10mm [id number] - [id number] Implanted:Qty: 1 on 02/06/2024 by Candido Ramirez MD at [facility] Right: Knee [employer] [id number] 02/15/2031 [id number] / / [id number] Procedures Procedure Name Priority Date/Time Associated Diagnosis Comments EGFR Routine 02/10/2024 12:13 AM CDT HEMOGLOBIN A1C Routine 01/31/2024 10:17 AM CDT Preoperative testing LIPID PANEL STAT 11/01/2022 12:07 AM LOGISTICS OFFICER from Last 3 Months or Most Recently [...] BLOOD ORDERABLES Final Result Performing Organization Address [facility] de Phone Number [facility] [place] [address] * (ABNORMAL) Hemoglobin A1c (01/31/2024 10:17 AM CDT) Hgb A1C 6.7(H) 4.0 - 5.6 % Estimated Average Glucose 146 mg/dL [facility] Comment: The ADA recommends reporting an [...] ORDERABLES Final Resul t Performing Organization Address [facility] de Phone Number [facility] Department [place] [address] * (ABNORMAL) Lipid panel (11/01/2022 12:07 AM LOGISTICS OFFICER) Cholesterol 144 30 - 199 mg/dL [facility] Comment: Interpretive Data Ages < or [...] revised on 2018. Triglycerides 204(H) <=149 mg/dL [facility] Comment: Interpretive Data Ages < or [...] revised on 2018. HDL 37(L) >=40 mg/dL [facility] Comment: Interpretive Data Ages < or [...] on 2018. LDL, calculated 66 <=129 mg/dL [facility] Comment: Interpretive Data Ages < or [...] revised on 2018. Non-HDL Cholesterol 107 mg/[facility] Comment: Interpretive Data Ages < or [...] last revised on 2018. Chol/HDL ratio 4 [facility] Blood 11/01/2022 12:0 7 AM LOGISTICS OFFICER 11/01/2022 12:18 AM LOGISTICS OFFICER Julio Acosta MD LAB BLOOD ORDERABLES Fin al Result [facility] Department [place] [address] from Last 3 Months or Most Recently Relevant to Health Maintenance Additional Health Concerns Active Problems Noted Date Diagnosed Date Initial Follow-Up Appointment 11/07/2022 Insurance [facility] Member Subscriber Plan / Payer (Ef fective 2021-Present) Name:Leo, Jeffery Relation to Subscriber:Self Name:Jeffery Bailey Payer ID:[id number] (NAIC) Group ID:Not on file Type:MEDICAID RISK OTHER Address: ATTN: CLAIMS DEPT [address] [place] [id number] Member Subscriber Plan / Payer (Ef fective 2016-Present) Name:LeoJeffery berumen Relation to Subscriber:Self Name:Jeffery Bailey Payer ID:[id number] (NAIC) Group ID:Not on file Type:MEDICAID RISK OTHER Address: ATTN: CLAIMS DEPT [address] [place] [phone] Member Subscriber Plan / Payer (Ef fective 2016-Present) Name:Leo Jeffery Relation to Subscriber:Self Name:Jeffery Bailey Payer ID:[id number] (NAIC) Group ID:Not on file Type:MEDICAID RISK OTHER Address: ATTN: CLAIMS DEPT [address] [facility] [place] [phone] Advance Directives For more information, please contact: [phone] * Full Code (Latest Code Status on File) Date Activated Date Inactivated Comments 02/06/2024 2:57 PM 02/10/2024 6:19 PM * Full Code Date Activated Date Inactivated Comments 11/01/2022 8:26 AM 11/04/2022 3:37 PM * Full Code Date Activated Date Inactivated Comments 08/09/2022 5:39 PM 08/10/2022 8:04 PM Care Teams General Pediatrician Relationship Specialty Start Date End Date Jimmie Arias MD [address] [place] [address] PCP - General Family Medicine 07/07/20
--- OUTSIDE RECORDS SUMMARY | 2025-04-14 10:09 | XMS_ITS | Referral Summary ---
Author Organization [facility] [address] Address [address] [place] [address] Care Team Providers Care Packerhead Machine Operator Name Role Phone Jimmie Arias MD Primary Care Provide r Allergies Active Allergy Reactions Criticality Noted Date Comments Hydrocodone Vomiting Low 07/26/2022 Lorazepam Agitation,Delusions, Lucho lucinations,Mental status changes Medium 01/20/2018 Other reaction(s): Psychiatric Medications allopurinoL (ZYLOPRIM) 100 mg tabletIndication s:prevention of acute gout attack Take 1 tablet (100 mg total) by mouth co supervisor grounds and landscape before breakfast 0 Active gabapentin (NEURONTIN) 400 [...] 1 tablet (450 mg total) by mouth co supervisor grounds and landscape before breakfast 4 Active amoxicillin 500 mg [...] 11/01/2022 Assessment & Plan (11/04/2022 1:57 PM FELLING BUCKING SUPERVISOR): See weakness Assessment & Plan (11/03/2022 6:40 PM FELLING BUCKING SUPERVISOR): See weakness Assessment & Plan (11/02/2022 7:26 PM FELLING BUCKING SUPERVISOR): See weakness Assessment & Plan (11/01/2022 7:07 PM FELLING BUCKING SUPERVISOR): See weakness Assessment & Plan (11/01/2022 5:10 AM FELLING BUCKING SUPERVISOR): -Likely secondary to deconditioning and obesity, will rule out organic causes with MRI spine. -Obtain vitamin B12, recent TSH wnl. -PT/OT eval, hold doxazosin due to fall risk. RENETTA (acute kidney injury) 11/01/2022 Assessment & Plan (11/04/2022 2:01 PM FELLING BUCKING SUPERVISOR): BL Cr 1.7s to 1.9. On arrival Cr was 1.89 and was up to 2.03. Torsemide was hold on 11/03. Today Cr is 1.65 Assessment & Plan (11/03/2022 6:43 PM FELLING BUCKING SUPERVISOR): BL Cr 1.7s to 1.9. On arrival Cr was 1.89. Yesterday Cr was 2.03. Pt is dry on exam. Hold torsemide. Strict I/O. Today Cr is 1.92 Assessment & Plan (11/02/2022 7:31 PM FELLING BUCKING SUPERVISOR): BL Cr 1.7s to 1.9. On arrival Cr was 1.89. Today is 2.03. Pt is dry on exam. Hold torsemide. Strict I/O. CTM Assessment & Plan (11/01/2022 7:07 PM FELLING BUCKING SUPERVISOR): BL Cr 1.7s to 1.9. - Cr is stable - CTM Assessment & Plan (11/01/2022 5:10 AM FELLING BUCKING SUPERVISOR): -Cr stable, continue to monitor. Vitamin D deficiency 11/01/2022 Assessment & Plan (11/04/2022 1:56 PM FELLING BUCKING SUPERVISOR): vitamin D deficiency with D-25OH level of 14 on 07/04/22. - Start ergocalciferol weekly x 12 weeks Assessment & Plan (11/03/2022 6:33 PM FELLING BUCKING SUPERVISOR): vitamin D deficiency with D-25OH level of 14 on 07/04/22. - Start ergocalciferol weekly Assessment & Plan (11/02/2022 7:25 PM FELLING BUCKING SUPERVISOR): vitamin D deficiency with D-25OH level of 14 on 07/04/22. - Start ergocalciferol weekly Assessment & Plan (11/01/2022 7:05 PM FELLING BUCKING SUPERVISOR): vitamin D deficiency with D-25OH level of 14 on 07/04/22. - Start ergocalciferol weekly Assessment & Plan (11/01/2022 5:13 AM FELLING BUCKING SUPERVISOR): -Patient with prior vitamin D deficiency with D-25OH level of 14 on 07/04/22. -Obtain repeat vitamin D level. Weakness 11/01/2022 Assessment & Plan (11/04/2022 1:59 PM FELLING BUCKING SUPERVISOR): LE weakness since left TKA on 08/09. [...] OT Assessment & Plan (11/03/2022 6:39 PM FELLING BUCKING SUPERVISOR): LE weakness since left TKA on 08/09. [...] aware. Assessment & Plan (11/02/2022 7:32 PM FELLING BUCKING SUPERVISOR): LE weakness since left TKA on 08/09. [...] aware. Assessment & Plan (11/01/2022 7:03 PM FELLING BUCKING SUPERVISOR): LE weakness since left TKA on 08/09. [...] 11/01/2022 Assessment & Plan (11/04/2022 1:57 PM FELLING BUCKING SUPERVISOR): C/w coreg. Cr improve and torsemide was restarted. Assessment & Plan (11/03/2022 6:40 PM FELLING BUCKING SUPERVISOR): C/w coreg. Hold torsemide due to RENETTA Assessment & Plan (11/02/2022 7:26 PM FELLING BUCKING SUPERVISOR): C/w coreg. Hold torsemide due to RENETTA Assessment & Plan (11/01/2022 7:06 PM FELLING BUCKING SUPERVISOR): C/w coreg and torsemide Knee pain 08/09/2022 Primary osteoarthritis of left knee 05/24/2022 Overview (05/24/2022): Added automatically from request for surgery [id number] ICD (implantable cardioverter-defibrillator) in place 01/15/2021 Overview (12/20/2021): Last Assessment & Plan: [facility] WNL in August. Assessment & Plan (11/03/2022 6:40 PM FELLING BUCKING SUPERVISOR): EP is on board regarding MRI Assessment & Plan (11/02/2022 7:25 PM FELLING BUCKING SUPERVISOR): Plan is spine MRI. EP is on board Assessment & Plan (11/01/2022 7:06 PM FELLING BUCKING SUPERVISOR): Plan is spine MRI. EP consult. Acute right heart failure 10/23/2020 Morbid obesity (CMS/HCC) 09/03/2020 Assessment & Plan (11/04/2022 1:56 PM FELLING BUCKING SUPERVISOR): . Assessment & Plan (11/03/2022 6:40 PM FELLING BUCKING SUPERVISOR): . Assessment & Plan (11/02/2022 7:25 PM FELLING BUCKING SUPERVISOR): . Assessment & Plan (11/01/2022 7:05 PM FELLING BUCKING SUPERVISOR): . Severe obesity 05/24/2019 Primary osteoarthritis of [...] GDMT. Assessment & Plan (11/04/2022 1:58 PM FELLING BUCKING SUPERVISOR): -Chronic without acute exacerbation, s/p ICD. [facility]. -Continue home GDMT with Entresto, Coreg and Jardiance. -Is euvolemic. Because increase Cr, torsemide 20mg daily was hold om 11/04. Cr improve and today Torsemide was restarted. - Strict I/O Assessment & Plan (11/03/2022 6:41 PM FELLING BUCKING SUPERVISOR): -Chronic without acute exacerbation, s/p ICD. Patient follows with [facility]. -Continue home GDMT with Entresto, Coreg and Jardiance. -Is euvolemic. Because increase Cr, torsemide 20mg daily was hold. - Strict I/O Assessment & Plan (11/02/2022 7:31 PM FELLING BUCKING SUPERVISOR): -Chronic without acute exacerbation, s/p ICD. Patient follows with [facility]. -Continue home GDMT with Entresto, Coreg and Jardiance. -Is euvolemic. Because increase Cr, torsemide 20mg daily was hold. - Strict I/O Assessment & Plan (11/01/2022 7:07 PM FELLING BUCKING SUPERVISOR): -Chronic without acute exacerbation, s/p ICD. Patient follows with [facility]. -Continue home GDMT with Entresto, Coreg and Jardiance. -Continue diuresis with torsemide 20mg daily. Assessment & Plan (11/01/2022 5:08 AM FELLING BUCKING SUPERVISOR): -Chronic without acute exacerbation, s/p ICD. Patient follows with [facility] cardiology. -Continue home GDMT with Entresto, Coreg and Jardiance. -Continue diuresis with torsemide 20mg daily. Anxiety disorder 07/26/2017 Assessment & Plan (11/04/2022 1:59 PM FELLING BUCKING SUPERVISOR): -Continue home Wellbutrin. Assessment & Plan (11/03/2022 6:42 PM FELLING BUCKING SUPERVISOR): -Continue home Wellbutrin. Assessment & Plan (11/02/2022 7:29 PM FELLING BUCKING SUPERVISOR): -Continue home Wellbutrin. Assessment & Plan (11/01/2022 7:08 PM FELLING BUCKING SUPERVISOR): -Continue home Wellbutrin. Assessment & Plan (11/01/2022 5:06 AM FELLING BUCKING SUPERVISOR): -Continue home Wellbutrin. Presence of coronary angioplasty [...] and Coreg. Atherosclerotic heart diseas e of [place]ul[place] coronary artery with other forms of angina pectoris 05/30/2017 Coronary atherosclerosis 05/30/2017 Dependence on other enabling machines and device s 05/26/2017 Overview (12/08/2021): AHI 6 but severe at home AHI 6 but severe at home Dizziness and giddiness 05/26/2017 CAD (coronary artery disease) 05/26/2017 Overview (12/08/2021): elevated fulling pressure elevated fulling pressure Assessment & Plan (11/04/2022 1:59 PM FELLING BUCKING SUPERVISOR): -S/p CABG, continue aspirin, Brilinta and atorvastatin for secondary prevention. Assessment & Plan (11/03/2022 6:41 PM FELLING BUCKING SUPERVISOR): -S/p CABG, continue aspirin, Brilinta and atorvastatin for secondary prevention. Assessment & Plan (11/02/2022 7:29 PM FELLING BUCKING SUPERVISOR): -S/p CABG, continue aspirin, Brilinta and atorvastatin for secondary prevention. Assessment & Plan (11/01/2022 7:08 PM FELLING BUCKING SUPERVISOR): -S/p CABG, continue aspirin, Brilinta and atorvastatin for secondary prevention. Assessment & Plan (11/01/2022 5:11 AM FELLING BUCKING SUPERVISOR): -S/p CABG, continue aspirin, Brilinta and atorvastatin [...] on file Legal Sex Male 8:56 PM FELLING BUCKING SUPERVISOR Gender Identity Male 08/31/2020 8:23 PM FELLING BUCKING SUPERVISOR Sexual Orientation Straight 08/31/2020 8: 23 PM FELLING BUCKING SUPERVISOR Last Filed Vital Signs Vital Sign Reading [...] to baseline Care Plan Initial Follow-Up Appointment No Rosita Beltran RN Medical Devices Implanted Type Area Virtual Office Assistant Device Identifier Shelf Expiration Date Model / Serial / Lot [employer] Icd D140-07/05/2017 Implanted:07/05 (Quantity not on file) ICD Chest [employer] C.R.M. D140 / [id number] / [employer] Rv Lead 0293-07/05/2017 Implanted:07/05 (Quantity not on file) Lead Heart [employer] C.R.M. 0293 / [id number] / Stent Implanted:Qty: 3 Stent Chest [employer] Attune Cruciate Retain Cementless Knee Left 7 Component Femoral [id number] - [id number] Implanted:Qty: 1 on 08/09/2022 by Candido Ramirez MD at [facility] Left: Knee [employer] [id number] 10/18/2031 [id number] / / [id number] [employer] Attune Fb Tib Base Sz 6 Por [id number] - [id number] Implanted:Qty: 1 on 08/09/2022 by Candido Ramirez MD at [facility] Left: Knee [employer] 01/16/2032 [id number] / / [id number] [employer] Insert Attune Left Medial Stabilized Size 7 10mm [id number] - [id number] Implanted:Qty: 1 on 08/09/2022 by Candido Ramirez MD at [facility] Left: Knee [employer] 03/17/2030 [id number] / / [id number] [employer] Attune Fb Tib Base Sz 7 Por [id number] - [id number] Implanted:Qty: 1 on 02/06/2024 by Candido Ramirez MD at [facility] Right: Knee [employer] [id number] 01/16/2032 [id number] / / [id number] [employer] Attune Cruciate Retain Cementless Knee Right 7 Component Femoral [id number] - [id number] Implanted:Qty: 1 on 02/06/2024 by Candido Ramirez MD at [facility] Right: Knee [employer] [id number] 12/16/2032 [id number] / / [id number] [employer] Insert Attune Right Medial Stabilized Size 7 10mm [id number] - [id number] Implanted:Qty: 1 on 02/06/2024 by Candido Ramirez MD at [facility] Right: Knee [employer] [id number] 02/15/2031 [id number] / / [id number] Procedures Procedure Name Priority Date/Time Associated Diagnosis Comments EGFR Routine 02/10/2024 12:13 AM CDT HEMOGLOBIN A1C Routine 01/31/2024 10:17 AM CDT Preoperative testing LIPID PANEL STAT 11/01/2022 12:07 AM FELLING BUCKING SUPERVISOR from Last 3 Months or Most Recently [...] of Race in Diagnosing Kidney Disease, JASN 202). The CKD-EPI equation should not be used for patients with unstable renal function and has not been validated in children and those over 70. Current interpretive data was last reviewed 2021. Blood 02/10/2024 12:1 3 AM CDT 02/10/2024 12:33 AM CDT us Karissa Villareal NP LAB BLOOD ORDERABLES Final Result Performing Organization Address [facility] de Phone Number [facility] [place] [address] * (ABNORMAL) Hemoglobin A1c (01/31/2024 10:17 AM CDT) Hgb A1C 6.7(H) 4.0 - 5.6 % Estimated Average Glucose 146 mg/dL [facility] Comment: The ADA recommends reporting an estimated [...] ORDERABLES Final Resul t Performing Organization Address [facility] Co de Phone Number [facility] [place] [address] * (ABNORMAL) Lipid panel (11/01/2022 12:07 AM FELLING BUCKING SUPERVISOR) Cholesterol 144 30 - 199 mg/dL [facility] Comment: Interpretive Data Ages < or [...] revised on 2018. Triglycerides 204(H) <=149 mg/dL [facility] Comment: Interpretive Data Ages < or = [...] revised on 2018. HDL 37(L) >=40 mg/dL [facility] Comment: Interpretive Data Ages < or = [...] on 2018. LDL, calculated 66 <=129 mg/dL [facility] Comment: Interpretive Data Ages < or = [...] revised on 2018. Non-HDL Cholesterol 107 mg/dL [facility] Comment: Interpretive Data Ages < [...] last revised on 2018. Chol/HDL ratio 4 [facility] Blood 11/01/2022 12:0 7 AM FELLING BUCKING SUPERVISOR 11/01/2022 12:18 AM FELLING BUCKING SUPERVISOR Julio Acosta MD LAB BLOOD ORDERABLES Fin al Result [facility] Department [place] [address] from Last 3 Months or Most Recently Relevant to Health Maintenance Additional Health Concerns Active Problems Noted Date Diagnosed Date Initial Follow-Up Appointment 11/07/2022 Insurance [employer] [facility] [id number] Advance Directives For more information, please contact: [phone] * Full Code (Latest Code Status on File) Date Activated Date Inactivated Comments 02/06/2024 2:57 PM 02/10/2024 6:19 PM * Full Code Date Activated Date Inactivated Comments 11/01/2022 8:26 AM 11/04/2022 3:37 PM * Full Code Date Activated Date Inactivated Comments 08/09/2022 5:39 PM 08/10/2022 8:04 PM Care Teams Packerhead Machine Operator Relationship Specialty Start Date End Date Jimmie Arias MD [address] [place] [address] PCP - General Family Medicine 07/07/20
[2025-04-14 10:21] LABS: Uric Acid 10.6 mg/dL (3.5-8.5)
[2025-04-14 10:40] LABS: Free T4 Free Thyroxine 1.32 ng/dL (0.78-2.19)
[2025-04-14 10:53] LABS: Thyroid Stimulating Hormone 3.790 uIU/mL (0.465-4.680)
[2025-04-14 11:13] LABS: Vitamin B12 970.0 pg/mL (239-931)
[2025-04-14 13:46] LABS: Anion Gap 8 mmol/L (4-12); Blood Urea Nitrogen 58 mg/dL (9-20); Calcium 9.2 mg/dL (8.4-10.2); Carbon Dioxide 23 mmol/L (22-30); Chloride 107 mmol/L (98-107); Estimated Glomerular Filt Rate 32; Glucose 108 mg/dL (65-110); Osmolality Calculated 303 mOsm/kg (285-295); Potassium 5.3 mmol/L (3.4-5.0); Sodium 138 mmol/L (137-145)
== END 2025-04-14 09:46 | disposition home or self-care (01) ==
PROVIDERS: PCP Family Medicine; Visit Provider Family Medicine
DX: R94.6 Abnormal results of thyroid function studies (principal); I10 Essential (primary) hypertension; E53.8 Deficiency of other specified B group vitamins; M10.072 Idiopathic gout, left ankle and foot; E55.9 Vitamin D deficiency, unspecified
CPT/HCPCS: 36415; 80048; 82306; 82607; 83921; 84439; 84443; 84550

== ENCOUNTER 2025-04-28 11:39 | Outpatient (CLI) | payer OTHER, SELFPAY ==
--- OUTSIDE RECORDS SUMMARY | 2025-04-28 11:42 | XMS_ITS | Clinical Summary ---
Author Organization [facility] Address [address] [place] [address] Care Team Providers Care Poster Name Role Phone Unavailable Primary Care Provider [...]
--- OUTSIDE RECORDS SUMMARY | 2025-04-28 11:42 | XMS_ITS | Clinical Summary ---
Author Organization [facility] Address [address] [place] [address] Phone Care Team Providers Care Railway Shunter Name Role Phone Jimmie Arias MD Primary Care Provider [phone] Allergies Active Allergy Reactions Criticality Noted Date [...] (#1) 2025 Insurance [employer] Care Teams Railway Shunter Relationship Specialty Start Date End Date Jimmie Arias MD [address] [place] [address] PCP - General Internal Medicine 04/19/20
--- OUTSIDE RECORDS SUMMARY | 2025-04-28 11:42 | XMS_ITS | Clinical Summary ---
Author Organization [facility] Address [address] [place] [address] Care Team Providers Care Remote Operations Producer Name Role Phone Jimmie Arias MD Primary [...] Comments Blood Pressure 105/66 08/31/2023 3:15 PM SUPERVISOR ROLLER PRINTING Pulse 49 08/31/2023 3:29 PM SUPERVISOR ROLLER PRINTING Temperature 36.1 C (96.9 F) 08/31/2023 11:25 AM SUPERVISOR ROLLER PRINTING Respiratory Rate 15 08/31/2023 2:45 PM SUPERVISOR ROLLER PRINTING Oxygen Saturation 99% 08/31/2023 3:29 PM SUPERVISOR ROLLER PRINTING Inhaled Oxygen Concentration - - Weight 139.2 kg (306 lb 14.1 oz) 2022 11:19 AM SUPERVISOR ROLLER PRINTING Height 182.9 cm (6') 08/31/2023 11:19 AM SUPERVISOR ROLLER PRINTING Body Mass Index 41.62 08/31/2023 11:19 AM SUPERVISOR ROLLER PRINTING Plan of Treatment Health Maintenance Due Date [...] Insurance MEDICAID [employer] Care Teams Remote Operations Producer Relationship Specialty Start Date End Date Jimmie Arias MD [address] [place] [address] PCP - General Pediatrics 05/31/22
--- OUTSIDE RECORDS SUMMARY | 2025-04-28 11:42 | XMS_ITS | Clinical Summary ---
Author Organization [facility] Address [address] [place] [address] Care Team Providers Care Pediatric Intensive Physician Name Role Phone Jimmie Arias MD Primary Care Provider Miguelito Osborne MD Unavailable [phone] Curtis Maddox MD Unavailable [phone] Melissa eFng MD Unavailable [phone] Vignesh Denton CD Unavailable [phone] Source Comments [facility],non-owned Affiliates and Associated Physician Practices is amultiple site organization consisting of ambulatory clinics and hospital sitesin [place], [place], [place] and [place]. This disclosure is being madepursuant to the Care Everywhere program and may not contain all information available regarding this patient. 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,Chronic combined systolic and diastolic congestive heart failure (HCC),Ventricular fibrillation (HCC),Presence of coronary angioplasty implant and graft Take 1 (one) tablet by mouth 2 times daily with morning and evening meal 180 tablet 3 02/12/20 25 Active potassium chloride ER (Klor-Con M) 20 MEQ tabletIndications: 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,Type 2 diabetes mellitus with diabetic neuropathy, without long-term current use of insulin ([facility]),Essential (primary) hypertension,Type 2 diabetes mellitus with complication, without long-term current use of insulin ([facility]),Abnormal result of other cardiovascular function study,Chronic combined [...] 90 MG tabletIndications: 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,Celluliti s of right lower extremity,Type 2 diabetes mellitus with diabetic neuropathy, without long-term current use of insulin ([facility]),Essential (primary) hypertension,Type 2 diabetes mellitus with complication, without long-term current use of insulin ([facility]),Abnormal result of other cardiovascular function [...] every 7 days (once a week) 01/29/20 25 Active Active Problems Problem Noted Date Diagnosed Date ICD (implantable cardioverter-defibrillator) in place 01/15/2021 Assessment & Plan (04/11/2024 11:25 AM CDT): Device interrogation today. Appropriate function. No arrhtythmias. He does not have a working gateway at home. Planning to have a new one mailed per the device nurse. Assessment & Plan (09/16/2021 1:01 PM WORM GROWER): Latitude WNL in August. Assessment & Plan (08/10/2021 12:50 PM WORM GROWER): Latitude scheduled for August. Assessment & Plan [...] place Assessment & Plan (09/16/2021 1:02 PM WORM GROWER): ICM: SP CABG in 2016, Chronic Combined [...] GDMT. Assessment & Plan (08/10/2021 1:02 PM WORM GROWER): ICM: Chronic Combined Systolic Heart Failure. NYHA [...] 40mg Daily. Creatine Clearance is 33 on 3/19. With worsening Edema and SOB on physical [...] GDMT. Assessment & Plan (11/23/2020 1:17 PM WORM GROWER): ICM: Chronic Combined Systolic Heart Failure. NYHA [...] 07/26/2017 Assessment & Plan (11/23/2020 1:09 PM WORM GROWER): Stable denies chest pain. Continue ASA and Brilinta, BB and statin, change to Entresto. Type 2 diabetes mellitus with diabetic neuropath y 07/06/2017 Overview (12/18/2017): bad in legs Ventricular fibrillation 07/06/2017 Assessment & Plan (09/16/2021 1:01 PM WORM GROWER): No events. Amio stopped, continue BB. Assessment & Plan (08/10/2021 12:47 PM WORM GROWER): No events. Amio stopped, continue BB. Assessment & Plan (05/14/2021 1:18 PM CDT): No events. Amio stopped, continue BB. Assessment & Plan (11/23/2020 3:45 PM WORM GROWER): SP ICD implant, no events. Would favor [...] and Coreg. Atherosclerotic heart diseas e of kotlik coronary artery with other forms of angina [...] 02/25/2025 11:00 AM CDT Office Visit [facility] - Cardiology [address] [facility], Jan [address] [place] [phone] Marine Odell APRN-CNP Stage 4 chronic kidney disease (HCC) (Primary Dx); Essential (primary) hypertension; Type 2 diabetes mellitus with diabetic neuropathy, without long-term current use of insulin (HCC); Class 3 severe obesity with serious comorbidity and body mass index (BMI) of 45.0 to 49.9 in adult, unspecified obesity type (HCC); Heart failure with mildly reduced ejection fraction (HFmrEF, 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); Coronary artery disease involving kotlik heart without angina pectoris, unspecified vessel or lesion type 02/25/2025 10:00 AM CDT Ancillary Procedure [facility] - Echosonography [address] [facility], [address] [phone] Chronic combined systolic and diastolic congestive heart failure (HCC) 02/25/2025 Travel 02/11/2025 10:30 AM CDT Office Visit [facility] - Cardiology [address] [place] [address], Jan [address] [place] [phone] Kya Garcia APRN-KYLE Atherosclerotic heart disease of kotlik coronary artery with other forms of angina [...] failure 02/11/2025 Travel 02/06/2025 Travel 02/05/2025 Refill [facility] - Cardiology [address] [place] [address], Jan [address] [place] [phone] Miguelito Osborne MD Refill Request 02/05/2025 Refill [facility] - Cardiology [address] [facility], Jan [address] [place] [address] Kvng Goddard, DIETETIC TECHNICIAN-STORE TEAM MEMBER Refill Request from Last 3 Months Family [...] on file Legal Sex Male 5:15 PM WORM GROWER Gender Identity Not on file Sexual Orientation [...] Description 05/28/2025 10:45 AM CDT Office Visit [facility] - Cardiology [address] [facility], Jan [address] [place] [phone] Jeison Parker MD [address] [facility] [address] [facility] [address] [place] [address] Health Maintenance Due Date Last Done Comments [...] 60-74 years 1-dose series) 2020 COVID-19 VACCINE ( - season) 2024 DIABETES-HGB A1C 08/02/2024 01/31/2024, , [...] Patient-Stated? Author Mobility General Worsening(04/2022 2:14 PM WORM GROWER) Estela Wilkerson RN Note: Expected end date: 09/17/2021 The [...] 10:48 AM CDT Atherosclerotic heart disease of kotlik coronary artery with other forms of angina [...] PACS IVSd 2D 0.983 cm [facility] CV FUJ I PACS LVIDd 6.192 cm [facility] CV FUJ I PACS LVIDs 5.27 cm [facility] CV [facility] I PACS LVOT diam 2.352 cm [facility] CV [facility] I PACS LVPWd 0.896 cm [facility] CV [facility] I PACS LV biplane EF 42.946 % [facility] CV FUJI PACS LV A2C EF 45.419 % [facility] CV [facility] I PACS LV A4C EF 39.213 % [facility] CV [facility] I PACS LV EDV A2C 147.857 ml [facility] CV FU JI PACS LV EDV A4C 179.923 ml [facility] CV FU JI PACS LV ESV A2C 80.702 ml [facility] CV FU JI PACS LV ESV A4C 109.37 ml [facility] CV FU JI PACS LVOT pk grad 3.972 mmHg [facility] LV[facility] pk josé 99.645 cm/s [facility] CV F U PACS LVOT VTI 24.58 cm [facility] CV [facility] I PACS RVOT pk josé 75.522 cm/s S[facility] CV F UJI PACS RVOT VTI 17.997 cm [facility] CV [facility] I PACS LA vol BP 52.618 ml [facility] CV [facility] I PACS RA area 18.826 cm [facility] AV area pk josé 3.739 cm [facility] AV area cont VTI 4.097 cm [facility] AV pk grad 5.366 mmHg S[facility] CV FU JI PACS AV mn grad 3.01 mmHg SSM CV FU JI PACS AV pk josé 115.825 cm/s SSM CV [facility] I PACS AV VTI 26.073 cm S[facility] CV [facility] I PACS MV A pk josé 102.338 cm/s SSM CV F UJI PACS MV E pk josé 91.337 cm/s SSM CV F UJI PACS MV E' lateral josé 5.526 cm/s SS [facility] MV mn grad 2.141 mmHg [facility] CV FU JI PACS MV VTI 38.911 cm SSM CV [facility] I PACS PV pk josé 99.413 cm/s S[facility] CV [facility] I PACS TR pk josé 188.668 cm/s SSM CV [facility] I PACS Ascending aorta 3.546 cm [facility] Sinus of Valsalva 3.407 cm SS [facility] Anatomical Region Laterality Modality Ultrasound 02/25/2025 [...] 10:23 AM Patient Status: O Study Site: [facility] Primary Location: [facility] Info Exam Type: ECHO COMPLETE W CONTRAST [...] Physician: Kya Garcia Ordering Provider: Kya Garcia Wet End Helper: Evette Mo Left Ventricle The left ventricle [...] on 02/25/2025 04:02 PM Procedure Note Shelby Pritchett DO - 02/25/2025 Summary * Technically difficult [...] 10:23 AM Patient Status: O Study Site: [facility] Primary Location: [facility] Info Exam Type: ECHO COMPLETE W CONTRAST [...] Physician: Kya Garcia Ordering Provider: Kya Garcia Wet End Helper: Evette Mo Left Ventricle The left ventricle [...] (2D) 15 % 25-43 LV EF (2D Teichcristoferz) 31 % 52-72 LV Diastolic Volume (4C [...] Pritchett on 02/25/2025 04:02 PM us Kya Garcia DIETETIC TECHNICIAN-STORE TEAM MEMBER ECHO CUPID Final Resu lt * CARDIAC PROCEDURE ORDER (02/18/2025) Only the most recent of3 resultswithin the time period is included. Narrative 02/18/2025 Ordered by an unspecified provider. us Scanned Document CARDIAC SERVICES ORDERABLES Fin al Result * EKG 12-Lead (02/11/2025 10:48 AM CDT) [facility] Ventricular Rate 65 BPM [facility] Atrial Rate 65 BPM [facility] P-R Interval 162 ms [facility] QRS Duration ms 92 ms [facility] Q-T Interval ms 440 ms [facility] QTC Calculation (Bezet) 457 ms [facility] Calculated P [place] 43 degrees [facility] Calculated R [place] -27 degrees [facility] Calculated T [place] 46 degrees [facility] Interpretation EKG SINUS RHYTHM WITH OCCASIONAL PREMATURE VENTRICULAR COMPLEXES ANTEROSEPTAL INFARCT (CITED ON OR BEFORE 19-JUN-2017) T WAVE ABNORMALITY, CONSIDER LATERAL ISCHEMIA ABNORMAL ECG WHEN COMPARED WITH ECG OF 28-AUG-2023 10:21, PREMATURE VENTRICULAR COMPLEXES ARE NOW PRESENT INVERTED T WAVES HAVE REPLACED NONSPECIFIC T WAVE ABNORMALITY IN ANTERIOR LEADS QT HAS LENGTHENED Confirmed by FLORECITA ESPAÑA, SANJIV GUZMAN ([id number]) on 02/22/2025 6:38:49 PM [facility] 02/11/2025 10:4 8 AM CDT 02/22/2025 6:38 PM CDT us Kya Garcia DIETETIC TECHNICIAN-STORE TEAM MEMBER ECG ORDERABLES Edited Res ult - Final [facility] * (ABNORMAL) COMPREHENSIVE METABOLIC PANEL (01/12/2019 2:38 PM CDT) [facility] BUN 21 7 - 26 mg/dL 01/12/2019 3:06 PM CDT [facility] Creatinine 1.5(H) 0.6 - 1.2 mg/dL 01/12/2019 3:06 PM CDT [facility] Sodium 139 136 - 145 mmol/L 01/12/2019 3:06 PM CDT [facility] Potassium 4.7(H) 3.5 - 4.5 mmol/L 01/12/2019 3:06 PM CDT [facility] Chloride 109(H) 98 - 107 mmol/L 01/12/2019 3:06 PM [facility] CO2 19(L) 22 - 29 mmol/L 01/12/2019 3:06 PM [facility] Glucose 111 70 - 115 mg/dL 01/12/2019 3:06 PM [facility] Calcium 9.4 8.4 - 10.2 mg/dL 01/12/2019 3:06 PM [facility] Protein Total 6.9 6.0 - 8.3 g/dL 01/12/2019 3:06 PM [facility] Albumin 3.4 3.4 - 5.0 g/dL 01/12/2019 3:06 PM [facility] Bilirubin Total 0.6 0.2 - 1.2 mg/dL 01/12/2019 3:06 PM [facility] Alkaline Phosphatase 94 40 - 150 Units/L 01/12/2019 3:06 PM [facility] ALT 56(H) 0 - 55 Units/L 01/12/2019 3:06 PM [facility] AST 40(H) 5 - 34 Units/L 01/12/2019 3:06 PM [facility] Anion Gap 16 8 - 18 01/12/2019 3:06 PM [facility] BUN/Creatinine Ratio 14 7 - 23 01/12/2019 3:06 PM [facility] Osmolality Calculated 292 270 - 300 mOsm/kg 01/12/2019 3:06 PM [facility] Albumin/Globulin Ratio 1.0(L) 1.1 - 2.3 01/12/2019 3:06 PM [facility] eGFR 48(L) >60 mL/min/1.7 3 m2 01/12/2019 3:06 PM [facility] Blood BLOOD SPECIMEN / Unknown Venipuncture / Unknown 01/12/2019 2:38 PM CDT 01/12/2019 2:38 PM T us Lucio Gunderson MD LAB - CHEMISTRY ORDERABLES F inal Result [facility] [address] [place] [address] * (ABNORMAL) HEMOGLOBIN A1C (2017 12:20 PM CDT) Hemoglobin A1c 6.5(H) 4.4 - 6.3 % [facility] Estimated Average Glucose 140 mg/dL [facility] Comment: HbA1c Interpretation: Treatment target values recommended by ADA and other clinical organizations should be used to evaluate metabolic control in patients. Treatment Target Values: Normal : < 5.7% Pre-diabetes: 5.7-6.4% Diabetes: Equal to or greater than 6.5% Reference: [place] [employer] Standards of Care in Diabetes -2014 In patients 70 years and older consider HbA1c target range of 7.0-7.5% Reference: Diabetes Mellitus in Older People: Position Statement on behalf of the International Association of Gerontology and Geriatrics (IAGG), the Diabetes Working Democrat for Older People (EDWPOP), and the International Task Force of Experts in Diabetes. Oz Paige et al. J [employer] [employer] Association. 2012 Test results diagnostic [...] MD LAB - CHEMISTRY ORDERABLES Final Result [facility] [address] [phone] from Last 3 Months or Most Recently Relevant to Health Maintenance Insurance [facility] Care Teams Pediatric Intensive Physician Relationship Specialty Start Date End Date Jimmie Arias MD [address] [place] [phone] PCP - General 10/23/14 Miguelito Osborne MD [facility] [address] [address] Submarine Advisory Team Watch Officer Cardiology 06/05/19 Curtis Maddox MD [address] [address] Neurologist Neurology 06/05/19 Melissa Feng MD [facility] [address] [place] [id number] Feeder Switchboard Operator Nephrology 06/05/19 Vignesh Denton CD [address] [place], [place] [address] [place] [address] Submarine Advisory Team Watch Officer Cardiology 06/05/19
--- OUTSIDE RECORDS SUMMARY | 2025-04-28 11:43 | XMS_ITS ---
Care Plan Created on: April 28, 2025 Jeffery Bailey : 1960 Sex: Male Author Organization [facility] [address] Address [address] [place] [address] Care Team Providers Care Supervisor Chlorine Liquefaction Name Role Phone Jimmie Arias MD Primary Care Provide r Active Problems Problem Noted Date Diagnosed Date Osteoarthritis of right knee , unspecified osteoarthritis type 02/06/2024 Primary osteoarthritis of right knee 01/03/2024 Fall 11/01/2022 Assessment & Plan (11/04/2022 1:57 PM NURSE EXTERN): See weakness Assessment & Plan (11/03/2022 6:40 PM NURSE EXTERN): See weakness Assessment & Plan (11/02/2022 7:26 PM NURSE EXTERN): See weakness Assessment & Plan (11/01/2022 7:07 PM NURSE EXTERN): See weakness Assessment & Plan (11/01/2022 5:10 AM NURSE EXTERN): -Likely secondary to deconditioning and obesity, will rule out organic causes with MRI spine. -Obtain vitamin B12, recent TSH wnl. -PT/OT eval, hold doxazosin due to fall risk. RENETTA (acute kidney injury) 11/01/2022 Assessment & Plan (11/04/2022 2:01 PM NURSE EXTERN): BL Cr 1.7s to 1.9. On arrival Cr was 1.89 and was up to 2.03. Torsemide was hold on 11/03. Today Cr is 1.65 Assessment & Plan (11/03/2022 6:43 PM NURSE EXTERN): BL Cr 1.7s to 1.9. On arrival Cr was 1.89. Yesterday Cr was 2.03. Pt is dry on exam. Hold torsemide. Strict I/O. Today Cr is 1.92 Assessment & Plan (11/02/2022 7:31 PM NURSE EXTERN): BL Cr 1.7s to 1.9. On arrival Cr was 1.89. Today is 2.03. Pt is dry on exam. Hold torsemide. Strict I/O. CTM Assessment & Plan (11/01/2022 7:07 PM NURSE EXTERN): BL Cr 1.7s to 1.9. - Cr is stable - CTM Assessment & Plan (11/01/2022 5:10 AM NURSE EXTERN): -Cr stable, continue to monitor. Vitamin D deficiency 11/01/2022 Assessment & Plan (11/04/2022 1:56 PM NURSE EXTERN): vitamin D deficiency with D-25OH level of 14 on 07/04/22. - Start ergocalciferol weekly x 12 weeks Assessment & Plan (11/03/2022 6:33 PM NURSE EXTERN): vitamin D deficiency with D-25OH level of 14 on 07/04/22. - Start ergocalciferol weekly Assessment & Plan (11/02/2022 7:25 PM NURSE EXTERN): vitamin D deficiency with D-25OH level of 14 on 07/04/22. - Start ergocalciferol weekly Assessment & Plan (11/01/2022 7:05 PM NURSE EXTERN): vitamin D deficiency with D-25OH level of 14 on 07/04/22. - Start ergocalciferol weekly Assessment & Plan (11/01/2022 5:13 AM NURSE EXTERN): -Patient with prior vitamin D deficiency with D-25OH level of 14 on 07/04/22. -Obtain repeat vitamin D level. Weakness 11/01/2022 Assessment & Plan (11/04/2022 1:59 PM NURSE EXTERN): LE weakness since left TKA on 08/09. [...] OT Assessment & Plan (11/03/2022 6:39 PM NURSE EXTERN): LE weakness since left TKA on 08/09. [...] aware. Assessment & Plan (11/02/2022 7:32 PM NURSE EXTERN): LE weakness since left TKA on 08/09. [...] aware. Assessment & Plan (11/01/2022 7:03 PM NURSE EXTERN): LE weakness since left TKA on 08/09. [...] 11/01/2022 Assessment & Plan (11/04/2022 1:57 PM NURSE EXTERN): C/w coreg. Cr improve and torsemide was restarted. Assessment & Plan (11/03/2022 6:40 PM NURSE EXTERN): C/w coreg. Hold torsemide due to RENETTA Assessment & Plan (11/02/2022 7:26 PM NURSE EXTERN): C/w coreg. Hold torsemide due to RENETTA Assessment & Plan (11/01/2022 7:06 PM NURSE EXTERN): C/w coreg and torsemide Knee pain 08/09/2022 Primary osteoarthritis of left knee 05/24/2022 Overview (05/24/2022): Added automatically from request for surgery [id number] ICD (implantable cardioverter-defibrillator) in place 01/15/2021 Overview (12/20/2021): Last Assessment & Plan: Latitude WNL in August. Assessment & Plan (11/03/2022 6:40 PM NURSE EXTERN): EP is on board regarding MRI Assessment & Plan (11/02/2022 7:25 PM NURSE EXTERN): Plan is spine MRI. EP is on board Assessment & Plan (11/01/2022 7:06 PM NURSE EXTERN): Plan is spine MRI. EP consult. Acute right heart failure 10/23/2020 Morbid obesity ([facility]) 09/03/2020 Assessment & Plan (11/04/2022 1:56 PM NURSE EXTERN): . Assessment & Plan (11/03/2022 6:40 PM NURSE EXTERN): . Assessment & Plan (11/02/2022 7:25 PM NURSE EXTERN): . Assessment & Plan (11/01/2022 7:05 PM NURSE EXTERN): . Severe obesity 05/24/2019 Primary osteoarthritis of [...] GDMT. Assessment & Plan (11/04/2022 1:58 PM NURSE EXTERN): -Chronic without acute exacerbation, s/p ICD. Patient follows with [facility]. -Continue home GDMT with Entresto, Coreg and Jardiance. -Is euvolemic. Because increase Cr, torsemide 20mg daily was hold om 11/04. Cr improve and today Torsemide was restarted. - Strict I/O Assessment & Plan (11/03/2022 6:41 PM NURSE EXTERN): -Chronic without acute exacerbation, s/p ICD. Patient follows with [facility]. -Continue home GDMT with Entresto, Coreg and Jardiance. -Is euvolemic. Because increase Cr, torsemide 20mg daily was hold. - Strict I/O Assessment & Plan (11/02/2022 7:31 PM NURSE EXTERN): -Chronic without acute exacerbation, s/p ICD. Patient follows with [facility]. -Continue home GDMT with Entresto, Coreg and Jardiance. -Is euvolemic. Because increase Cr, torsemide 20mg daily was hold. - Strict I/O Assessment & Plan (11/01/2022 7:07 PM NURSE EXTERN): -Chronic without acute exacerbation, s/p ICD. Patient follows with [facility]. -Continue home GDMT with Entresto, Coreg and Jardiance. -Continue diuresis with torsemide 20mg daily. Assessment & Plan (11/01/2022 5:08 AM NURSE EXTERN): -Chronic without acute exacerbation, s/p ICD. Patient follows with [facility]. -Continue home GDMT with Entresto, Coreg and Jardiance. -Continue diuresis with torsemide 20mg daily. Anxiety disorder 07/26/2017 Assessment & Plan (11/04/2022 1:59 PM NURSE EXTERN): -Continue home Wellbutrin. Assessment & Plan (11/03/2022 6:42 PM NURSE EXTERN): -Continue home Wellbutrin. Assessment & Plan (11/02/2022 7:29 PM NURSE EXTERN): -Continue home Wellbutrin. Assessment & Plan (11/01/2022 7:08 PM NURSE EXTERN): -Continue home Wellbutrin. Assessment & Plan (11/01/2022 5:06 AM NURSE EXTERN): -Continue home Wellbutrin. Presence of coronary angioplasty [...] and Coreg. Atherosclerotic heart diseas e of [place] coronary artery with other forms of angina pectoris 05/30/2017 Coronary atherosclerosis 05/30/2017 Dependence on other enabling machines and device s 05/26/2017 Overview (12/08/2021): AHI 6 but severe at home AHI 6 but severe at home Dizziness and giddiness 05/26/2017 CAD (coronary artery disease) 05/26/2017 Overview (12/08/2021): elevated fulling pressure elevated fulling pressure Assessment & Plan (11/04/2022 1:59 PM NURSE EXTERN): -S/p CABG, continue aspirin, Brilinta and atorvastatin for secondary prevention. Assessment & Plan (11/03/2022 6:41 PM NURSE EXTERN): -S/p CABG, continue aspirin, Brilinta and atorvastatin for secondary prevention. Assessment & Plan (11/02/2022 7:29 PM NURSE EXTERN): -S/p CABG, continue aspirin, Brilinta and atorvastatin for secondary prevention. Assessment & Plan (11/01/2022 7:08 PM NURSE EXTERN): -S/p CABG, continue aspirin, Brilinta and atorvastatin for secondary prevention. Assessment & Plan (11/01/2022 5:11 AM NURSE EXTERN): -S/p CABG, continue aspirin, Brilinta and atorvastatin [...]
--- OUTSIDE RECORDS SUMMARY | 2025-04-28 11:43 | XMS_ITS | Clinical Summary ---
Author Organization [facility] [address] Address [address] [place] [address] Care Team Providers Care Truck Jumper Name Role Phone Jimmie Arias MD Primary Care Provide r Allergies Active Allergy Reactions Criticality Noted Date Comments Hydrocodone Vomiting Low 07/26/2022 Lorazepam Agitation,Delusions, Lucho lucinations,Mental status changes Medium 01/20/2018 Other reaction(s): Psychiatric Medications allopurinoL (ZYLOPRIM) 100 mg tabletIndication s:prevention of acute gout attack Take 1 tablet (100 mg total) by mouth developer support engineer before breakfast 0 Active gabapentin (NEURONTIN) 400 [...] 1 tablet (450 mg total) by mouth developer support engineer before breakfast 4 Active amoxicillin 500 mg [...] 11/01/2022 Assessment & Plan (11/04/2022 1:57 PM DETECTIVE BUREAU CHIEF): See weakness Assessment & Plan (11/03/2022 6:40 PM DETECTIVE BUREAU CHIEF): See weakness Assessment & Plan (11/02/2022 7:26 PM DETECTIVE BUREAU CHIEF): See weakness Assessment & Plan (11/01/2022 7:07 PM DETECTIVE BUREAU CHIEF): See weakness Assessment & Plan (11/01/2022 5:10 AM DETECTIVE BUREAU CHIEF): -Likely secondary to deconditioning and obesity, will rule out organic causes with MRI spine. -Obtain vitamin B12, recent TSH wnl. -PT/OT eval, hold doxazosin due to fall risk. RENETTA (acute kidney injury) 11/01/2022 Assessment & Plan (11/04/2022 2:01 PM DETECTIVE BUREAU CHIEF): BL Cr 1.7s to 1.9. On arrival Cr was 1.89 and was up to 2.03. Torsemide was hold on 11/03. Today Cr is 1.65 Assessment & Plan (11/03/2022 6:43 PM DETECTIVE BUREAU CHIEF): BL Cr 1.7s to 1.9. On arrival Cr was 1.89. Yesterday Cr was 2.03. Pt is dry on exam. Hold torsemide. Strict I/O. Today Cr is 1.92 Assessment & Plan (11/02/2022 7:31 PM DETECTIVE BUREAU CHIEF): BL Cr 1.7s to 1.9. On arrival Cr was 1.89. Today is 2.03. Pt is dry on exam. Hold torsemide. Strict I/O. CTM Assessment & Plan (11/01/2022 7:07 PM DETECTIVE BUREAU CHIEF): BL Cr 1.7s to 1.9. - Cr is stable - CTM Assessment & Plan (11/01/2022 5:10 AM DETECTIVE BUREAU CHIEF): -Cr stable, continue to monitor. Vitamin D deficiency 11/01/2022 Assessment & Plan (11/04/2022 1:56 PM DETECTIVE BUREAU CHIEF): vitamin D deficiency with D-25OH level of 14 on 07/04/22. - Start ergocalciferol weekly x 12 weeks Assessment & Plan (11/03/2022 6:33 PM DETECTIVE BUREAU CHIEF): vitamin D deficiency with D-25OH level of 14 on 07/04/22. - Start ergocalciferol weekly Assessment & Plan (11/02/2022 7:25 PM DETECTIVE BUREAU CHIEF): vitamin D deficiency with D-25OH level of 14 on 07/04/22. - Start ergocalciferol weekly Assessment & Plan (11/01/2022 7:05 PM DETECTIVE BUREAU CHIEF): vitamin D deficiency with D-25OH level of 14 on 07/04/22. - Start ergocalciferol weekly Assessment & Plan (11/01/2022 5:13 AM DETECTIVE BUREAU CHIEF): -Patient with prior vitamin D deficiency with D-25OH level of 14 on 07/04/22. -Obtain repeat vitamin D level. Weakness 11/01/2022 Assessment & Plan (11/04/2022 1:59 PM DETECTIVE BUREAU CHIEF): LE weakness since left TKA on 08/09. [...] OT Assessment & Plan (11/03/2022 6:39 PM DETECTIVE BUREAU CHIEF): LE weakness since left TKA on 08/09. [...] aware. Assessment & Plan (11/02/2022 7:32 PM DETECTIVE BUREAU CHIEF): LE weakness since left TKA on 08/09. [...] aware. Assessment & Plan (11/01/2022 7:03 PM DETECTIVE BUREAU CHIEF): LE weakness since left TKA on 08/09. [...] 11/01/2022 Assessment & Plan (11/04/2022 1:57 PM DETECTIVE BUREAU CHIEF): C/w coreg. Cr improve and torsemide was restarted. Assessment & Plan (11/03/2022 6:40 PM DETECTIVE BUREAU CHIEF): C/w coreg. Hold torsemide due to RENETTA Assessment & Plan (11/02/2022 7:26 PM DETECTIVE BUREAU CHIEF): C/w coreg. Hold torsemide due to RENETTA Assessment & Plan (11/01/2022 7:06 PM DETECTIVE BUREAU CHIEF): C/w coreg and torsemide Knee pain 08/09/2022 Primary osteoarthritis of left knee 05/24/2022 Overview (05/24/2022): Added automatically from request for surgery [id number] ICD (implantable cardioverter-defibrillator) in place 01/15/2021 Overview (12/20/2021): Last Assessment & Plan: [facility]itude WNL in August. Assessment & Plan (11/03/2022 6:40 PM DETECTIVE BUREAU CHIEF): EP is on board regarding MRI Assessment & Plan (11/02/2022 7:25 PM DETECTIVE BUREAU CHIEF): Plan is spine MRI. EP is on board Assessment & Plan (11/01/2022 7:06 PM DETECTIVE BUREAU CHIEF): Plan is spine MRI. EP consult. Acute right heart failure 10/23/2020 Morbid obesity (CMS/HCC) 09/03/2020 Assessment & Plan (11/04/2022 1:56 PM DETECTIVE BUREAU CHIEF): . Assessment & Plan (11/03/2022 6:40 PM DETECTIVE BUREAU CHIEF): . Assessment & Plan (11/02/2022 7:25 PM DETECTIVE BUREAU CHIEF): . Assessment & Plan (11/01/2022 7:05 PM DETECTIVE BUREAU CHIEF): . Severe obesity 05/24/2019 Primary osteoarthritis of [...] GDMT. Assessment & Plan (11/04/2022 1:58 PM DETECTIVE BUREAU CHIEF): -Chronic without acute exacerbation, s/p ICD. [facility]. -Continue home GDMT with Entresto, Coreg and Jardiance. -Is euvolemic. Because increase Cr, torsemide 20mg daily was hold om 11/04. Cr improve and today Torsemide was restarted. - Strict I/O Assessment & Plan (11/03/2022 6:41 PM DETECTIVE BUREAU CHIEF): -Chronic without acute exacerbation, s/p ICD. [facility] follows with [facility]. -Continue home GDMT with Entresto, Coreg and Jardiance. -Is euvolemic. Because increase Cr, torsemide 20mg daily was hold. - Strict I/O Assessment & Plan (11/02/2022 7:31 PM DETECTIVE BUREAU CHIEF): -Chronic without acute exacerbation, s/p ICD. Patient follows with [facility]. -Continue home GDMT with Entresto, Coreg and Jardiance. -Is euvolemic. Because increase Cr, torsemide 20mg daily was hold. - Strict I/O Assessment & Plan (11/01/2022 7:07 PM DETECTIVE BUREAU CHIEF): -Chronic without acute exacerbation, s/p ICD. Patient follows with [facility]. -Continue home GDMT with Entresto, Coreg and Jardiance. -Continue diuresis with torsemide 20mg daily. Assessment & Plan (11/01/2022 5:08 AM DETECTIVE BUREAU CHIEF): -Chronic without acute exacerbation, s/p ICD. Patient follows with [facility] cardiology. -Continue home GDMT with Entresto, Coreg and Jardiance. -Continue diuresis with torsemide 20mg daily. Anxiety disorder 07/26/2017 Assessment & Plan (11/04/2022 1:59 PM DETECTIVE BUREAU CHIEF): -Continue home Wellbutrin. Assessment & Plan (11/03/2022 6:42 PM DETECTIVE BUREAU CHIEF): -Continue home Wellbutrin. Assessment & Plan (11/02/2022 7:29 PM DETECTIVE BUREAU CHIEF): -Continue home Wellbutrin. Assessment & Plan (11/01/2022 7:08 PM DETECTIVE BUREAU CHIEF): -Continue home Wellbutrin. Assessment & Plan (11/01/2022 5:06 AM DETECTIVE BUREAU CHIEF): -Continue home Wellbutrin. Presence of coronary angioplasty [...] and Coreg. Atherosclerotic heart diseas e of eek coronary artery with other forms of angina pectoris 05/30/2017 Coronary atherosclerosis 05/30/2017 Dependence on other enabling machines and device s 05/26/2017 Overview (12/08/2021): AHI 6 but severe at home AHI 6 but severe at home Dizziness and giddiness 05/26/2017 CAD (coronary artery disease) 05/26/2017 Overview (12/08/2021): elevated fulling pressure elevated fulling pressure Assessment & Plan (11/04/2022 1:59 PM DETECTIVE BUREAU CHIEF): -S/p CABG, continue aspirin, Brilinta and atorvastatin for secondary prevention. Assessment & Plan (11/03/2022 6:41 PM DETECTIVE BUREAU CHIEF): -S/p CABG, continue aspirin, Brilinta and atorvastatin for secondary prevention. Assessment & Plan (11/02/2022 7:29 PM DETECTIVE BUREAU CHIEF): -S/p CABG, continue aspirin, Brilinta and atorvastatin for secondary prevention. Assessment & Plan (11/01/2022 7:08 PM DETECTIVE BUREAU CHIEF): -S/p CABG, continue aspirin, Brilinta and atorvastatin for secondary prevention. Assessment & Plan (11/01/2022 5:11 AM DETECTIVE BUREAU CHIEF): -S/p CABG, continue aspirin, Brilinta and atorvastatin [...] Site/Laterality Comments CARDIAC DEFIBRILLATOR PLACEMENT 06/25/2017 Left [employer] Virtual ICD - Model # D140 CORONARY ARTERY BYPASS GRAFT 06/19/2017 RUVALCABA-LAD, SVG-Diag, SVG-PDA, endsoscopic vein harvest VT RPR ANOM CORONARY ARTERY PULM ART ORIGIN [...] Coronary artery disease Type 2 diabetes mellitus Myocardial infarction (HCC) 06/21/2017 Hypertension Joint pain Hypercholesteremia Low back pain Sleep apnea Cardiac arrest 06/24/2017 Gout Postoperative delirium following 06/2017 CABG [...] on file Legal Sex Male 8:56 PM DETECTIVE BUREAU CHIEF Gender Identity Male 08/31/2020 8:23 PM DETECTIVE BUREAU CHIEF Sexual Orientation Straight 08/31/2020 8: 23 PM DETECTIVE BUREAU CHIEF Obstetrics History Last Filed Vital Signs Vital [...] Ibrahim RN Medical Devices Implanted Type Area Wheelage Clerk Device Identifier Shelf Expiration Date Model / Serial / Lot [employer] Icd D140-07/05/2017 Implanted:07/05 (Quantity not on file) ICD Chest [employer] C.R.M. D140 / [id number] / [employer] Rv Lead 0293-07/05/2017 Implanted:07/05 (Quantity not on file) Lead Heart [employer] C.R.M. 0293 / [id number] / Stent Implanted:Qty: 3 Stent Chest [employer] Attune Cruciate Retain Cementless Knee Left 7 Component Femoral [id number] - [id number] Implanted:Qty: 1 on 08/09/2022 by Candido Ramirez MD at [facility] Left: Knee [employer] [id number] 10/18/2031 [id number] / / [id number] [employer] Attune Fb Tib Base Sz 6 Por [id number] - [id number] Implanted:Qty: 1 on 08/09/2022 by Candido Ramirez MD at [facility] Left: Knee [employer] 01/16/2032 [id number] / / [id number] [employer] Insert Attune Left Medial Stabilized Size 7 10mm [id number] - [id number] Implanted:Qty: 1 on 08/09/2022 by Candido Ramirez MD at [facility] Left: Knee [employer] 03/17/2030 [id number] / / [id number] [employer] Attune Fb Tib Base Sz 7 Por [id number] - [id number] Implanted:Qty: 1 on 02/06/2024 by Candido Ramirez MD at [facility] Right: Knee [employer] [id number] 01/16/2032 [id number] / / [id number] [employer] Attune Cruciate Retain Cementless Knee Right 7 Component Femoral [id number] - [id number] Implanted:Qty: 1 on 02/06/2024 by Candido Ramirez MD at [facility] Right: Knee [employer] [id number] 12/16/2032 [id number] / / [id number] [employer] Insert Attune Right Medial Stabilized Size 7 10mm [id number] - [id number] Implanted:Qty: 1 on 02/06/2024 by Candido Ramirez MD at [facility] Right: Knee [employer] [id number] 02/15/2031 [id number] / / [id number] Procedures Procedure Name Priority Date/Time Associated Diagnosis Comments EGFR Routine 02/10/2024 12:13 AM CDT HEMOGLOBIN A1C Routine 01/31/2024 10:17 AM CDT Preoperative testing LIPID PANEL STAT 11/01/2022 12:07 AM DETECTIVE BUREAU CHIEF from Last 3 Months or Most Recently [...] of Race in Diagnosing Kidney Disease, JASN 2021). The CKD-EPI equation should not be used for patients with unstable renal function and has not been validated in children and those over 70. Current interpretive data was last reviewed 2021. Blood 02/10/2024 12:1 3 AM CDT 02/10/2024 12:33 AM CDT Karissa Villareal NP LAB BLOOD ORDERABLES Final Result Performing Organization Address [facility] de Phone Number [facility] [place] [address] * (ABNORMAL) Hemoglobin A1c (01/31/2024 10:17 AM CDT) Hgb A1C 6.7(H) 4.0 - 5.6 % Estimated Average Glucose 146 mg/dL [facility] Comment: The ADA recommends reporting an estimated [...] ORDERABLES Final Resul t Performing Organization Address [facility] de Phone Number [facility] [place] [address] * (ABNORMAL) Lipid panel (11/01/2022 12:07 AM DETECTIVE BUREAU CHIEF) Cholesterol 144 30 - 199 mg/dL [facility] Comment: Interpretive Data Ages < or [...] revised on 2018. Triglycerides 204(H) <=149 mg/dL [facility] Comment: Interpretive Data Ages < or [...] revised on 2018. HDL 37(L) >=40 mg/dL [facility] Comment: Interpretive Data Ages < or [...] on 2018. LDL, calculated 66 <=129 mg/dL [facility] Comment: Interpretive Data Ages < or [...] revised on 2018. Non-HDL Cholesterol 107 mg/dL [facility] Comment: Interpretive Data Ages < or = [...] last revised on 2018. Chol/HDL ratio 4 [facility] Blood 11/01/2022 12:0 7 AM DETECTIVE BUREAU CHIEF 11/01/2022 12:18 AM DETECTIVE BUREAU CHIEF us Julio Acosta MD LAB BLOOD ORDERABLES Fin al Result [facility] [place] [address] from Last 3 Months or Most Recently Relevant to Health Maintenance Additional Health Concerns Active Problems Noted Date Diagnosed Date Initial Follow-Up Appointment 11/07/2022 Insurance [facility] Member Subscriber Plan / Payer (Ef fective 2016-Present) Name:Jeffery Bailey Relation to Subscriber:Self Name:Jeffery Bailey Payer ID:[id number] (NAIC) Group ID:Not on file Type:MEDICAID RISK OTHER Address: ATTN: CLAIMS DEPT [address] [facility] [place] [address] Member Subscriber Plan / Payer (Ef fective 2016-Present) Name:Jeffery Bailey Relation to Subscriber:Self Name:Jeffery Bailey Payer ID:[id number] (NAIC) Group ID:Not on file Type:MEDICAID RISK OTHER Address: ATTN: CLAIMS DEPT [address] [facility] [place] [address] Advance Directives For more information, please contact: [phone] * Full Code (Latest Code Status on File) Date Activated Date Inactivated Comments 02/06/2024 2:57 PM 02/10/2024 6:19 PM * Full Code Date Activated Date Inactivated Comments 11/01/2022 8:26 AM 11/04/2022 3:37 PM * Full Code Date Activated Date Inactivated Comments 08/09/2022 5:39 PM 08/10/2022 8:04 PM Care Teams Truck Jumper Relationship Specialty Start Date End Date Jimmie Arias MD [address], [place] [id number] PCP - General Family Medicine 07/07/20
[2025-04-28 12:38] LABS: Anion Gap 9 mmol/L (4-12); Blood Urea Nitrogen 55 mg/dL (9-20); Calcium 8.9 mg/dL (8.4-10.2); Carbon Dioxide 23 mmol/L (22-30); Chloride 109 mmol/L (98-107); Estimated Glomerular Filt Rate 30; Glucose 125 mg/dL (65-110); Osmolality Calculated 308 mOsm/kg (285-295); Potassium 5.0 mmol/L (3.4-5.0); Sodium 141 mmol/L (137-145)
== END 2025-04-28 11:40 | disposition home or self-care (01) ==
LOC: CHSLAB 11:41
PROVIDERS: PCP Family Medicine; Visit Provider Family Medicine
DX: E78.5 Hyperlipidemia, unspecified (principal)
CPT/HCPCS: 36415; 80048

== ENCOUNTER 2025-05-29 08:41 | Outpatient (CLI) | payer MEDICARE, SELFPAY ==
[2025-05-29 09:06] LABS: Hematocrit 44.4 % (40.0-54.0); Hemoglobin 14.1 g/dL (14.0-18.0); Mean Corpuscular HGB Conc 31.8 g/dL (32-36); Mean Corpuscular Hemoglobin 30.7 pg (27.0-31.0); Mean Corpuscular Volume 96.5 fL (78.0-102.0); Platelet Count Result 220 K/mm3 (150-420); Red Blood Count 4.60 M/mm3 (4.70-6.10); White Blood Count 8.7 K/mm3 (4.8-10.8)
--- OUTSIDE RECORDS SUMMARY | 2025-05-29 09:14 | XMS_ITS | Clinical Summary ---
Author Organization [facility] [place] [address] Address [address] [place] [address] Care Team Providers Care Loom Fixer Apprentice Name Role Phone Jimmie Arias MD Primary Care Provide r Allergies Active Allergy Reactions Criticality Noted Date Comments Hydrocodone Vomiting Low 07/26/2022 Lorazepam Agitation,Delusions, Lucho lucinations,Mental status changes Medium 01/20/2018 Other reaction(s): Psychiatric Medications allopurinoL (ZYLOPRIM) 100 mg tabletIndication s:prevention of acute gout attack Take 1 tablet (100 mg total) by mouth tire changer before breakfast 0 Active gabapentin (NEURONTIN) 400 [...] 1 tablet (450 mg total) by mouth tire changer before breakfast 4 Active amoxicillin 500 mg [...] 11/01/2022 Assessment & Plan (11/04/2022 1:57 PM CNC MECHANIC): See weakness Assessment & Plan (11/03/2022 6:40 PM CNC MECHANIC): See weakness Assessment & Plan (11/02/2022 7:26 PM CNC MECHANIC): See weakness Assessment & Plan (11/01/2022 7:07 PM CNC MECHANIC): See weakness Assessment & Plan (11/01/2022 5:10 AM CNC MECHANIC): -Likely secondary to deconditioning and obesity, will rule out organic causes with MRI spine. -Obtain vitamin B12, recent TSH wnl. -PT/OT eval, hold doxazosin due to fall risk. RENETTA (acute kidney injury) 11/01/2022 Assessment & Plan (11/04/2022 2:01 PM CNC MECHANIC): BL Cr 1.7s to 1.9. On arrival Cr was 1.89 and was up to 2.03. Torsemide was hold on 11/03. Today Cr is 1.65 Assessment & Plan (11/03/2022 6:43 PM CNC MECHANIC): BL Cr 1.7s to 1.9. On arrival Cr was 1.89. Yesterday Cr was 2.03. Pt is dry on exam. Hold torsemide. Strict I/O. Today Cr is 1.92 Assessment & Plan (11/02/2022 7:31 PM CNC MECHANIC): BL Cr 1.7s to 1.9. On arrival Cr was 1.89. Today is 2.03. Pt is dry on exam. Hold torsemide. Strict I/O. CTM Assessment & Plan (11/01/2022 7:07 PM CNC MECHANIC): BL Cr 1.7s to 1.9. - Cr is stable - CTM Assessment & Plan (11/01/2022 5:10 AM CNC MECHANIC): -Cr stable, continue to monitor. Vitamin D deficiency 11/01/2022 Assessment & Plan (11/04/2022 1:56 PM CNC MECHANIC): vitamin D deficiency with D-25OH level of 14 on 07/04/22. - Start ergocalciferol weekly x 12 weeks Assessment & Plan (11/03/2022 6:33 PM CNC MECHANIC): vitamin D deficiency with D-25OH level of 14 on 07/04/22. - Start ergocalciferol weekly Assessment & Plan (11/02/2022 7:25 PM CNC MECHANIC): vitamin D deficiency with D-25OH level of 14 on 07/04/22. - Start ergocalciferol weekly Assessment & Plan (11/01/2022 7:05 PM CNC MECHANIC): vitamin D deficiency with D-25OH level of 14 on 07/04/22. - Start ergocalciferol weekly Assessment & Plan (11/01/2022 5:13 AM CNC MECHANIC): -Patient with prior vitamin D deficiency with D-25OH level of 14 on 07/04/22. -Obtain repeat vitamin D level. Weakness 11/01/2022 Assessment & Plan (11/04/2022 1:59 PM CNC MECHANIC): LE weakness since left TKA on 08/09. [...] OT Assessment & Plan (11/03/2022 6:39 PM CNC MECHANIC): LE weakness since left TKA on 08/09. [...] aware. Assessment & Plan (11/02/2022 7:32 PM CNC MECHANIC): LE weakness since left TKA on 08/09. [...] aware. Assessment & Plan (11/01/2022 7:03 PM CNC MECHANIC): LE weakness since left TKA on 08/09. [...] 11/01/2022 Assessment & Plan (11/04/2022 1:57 PM CNC MECHANIC): C/w coreg. Cr improve and torsemide was restarted. Assessment & Plan (11/03/2022 6:40 PM CNC MECHANIC): C/w coreg. Hold torsemide due to RENETTA Assessment & Plan (11/02/2022 7:26 PM CNC MECHANIC): C/w coreg. Hold torsemide due to RENETTA Assessment & Plan (11/01/2022 7:06 PM CNC MECHANIC): C/w coreg and torsemide Knee pain 08/09/2022 Primary osteoarthritis of left knee 05/24/2022 Overview (05/24/2022): Added automatically from request for surgery [id number] ICD (implantable cardioverter-defibrillator) in place 01/15/2021 Overview (12/20/2021): Last Assessment & Plan: Latitude WNL in August. Assessment & Plan (11/03/2022 6:40 PM CNC MECHANIC): EP is on board regarding MRI Assessment & Plan (11/02/2022 7:25 PM CNC MECHANIC): Plan is spine MRI. EP is on board Assessment & Plan (11/01/2022 7:06 PM CNC MECHANIC): Plan is spine MRI. EP consult. Acute right heart failure 10/23/2020 Morbid obesity (CMS/HCC) 09/03/2020 Assessment & Plan (11/04/2022 1:56 PM CNC MECHANIC): . Assessment & Plan (11/03/2022 6:40 PM CNC MECHANIC): . Assessment & Plan (11/02/2022 7:25 PM CNC MECHANIC): . Assessment & Plan (11/01/2022 7:05 PM CNC MECHANIC): . Severe obesity 05/24/2019 Primary osteoarthritis of [...] GDMT. Assessment & Plan (11/04/2022 1:58 PM CNC MECHANIC): -Chronic without acute exacerbation, s/p ICD. [facility]. -Continue home GDMT with Entresto, Coreg and Jardiance. -Is euvolemic. Because increase Cr, torsemide 20mg daily was hold om 11/04. Cr improve and today Torsemide was restarted. - Strict I/O Assessment & Plan (11/03/2022 6:41 PM CNC MECHANIC): -Chronic without acute exacerbation, s/p ICD. [facility] with [facility]. -Continue home GDMT with Entresto, Coreg and Jardiance. -Is euvolemic. Because increase Cr, torsemide 20mg daily was hold. - Strict I/O Assessment & Plan (11/02/2022 7:31 PM CNC MECHANIC): -Chronic without acute exacerbation, s/p ICD. [facility] with [facility]. -Continue home GDMT with Entresto, Coreg and Jardiance. -Is euvolemic. Because increase Cr, torsemide 20mg daily was hold. - Strict I/O Assessment & Plan (11/01/2022 7:07 PM CNC MECHANIC): -Chronic without acute exacerbation, s/p ICD. [facility] with [facility]. -Continue home GDMT with Entresto, Coreg and Jardiance. -Continue diuresis with torsemide 20mg daily. Assessment & Plan (11/01/2022 5:08 AM CNC MECHANIC): -Chronic without acute exacerbation, s/p ICD. Patient [facility] with [facility] cardiology. -Continue home GDMT with Entresto, Coreg and Jardiance. -Continue diuresis with torsemide 20mg daily. Anxiety disorder 07/26/2017 Assessment & Plan (11/04/2022 1:59 PM CNC MECHANIC): -Continue home Wellbutrin. Assessment & Plan (11/03/2022 6:42 PM CNC MECHANIC): -Continue home Wellbutrin. Assessment & Plan (11/02/2022 7:29 PM CNC MECHANIC): -Continue home Wellbutrin. Assessment & Plan (11/01/2022 7:08 PM CNC MECHANIC): -Continue home Wellbutrin. Assessment & Plan (11/01/2022 5:06 AM CNC MECHANIC): -Continue home Wellbutrin. Presence of coronary angioplasty [...] and Coreg. Atherosclerotic heart diseas e of [place] coronary artery with other forms of angina pectoris 05/30/2017 Coronary atherosclerosis 05/30/2017 Dependence on other enabling machines and device s 05/26/2017 Overview (12/08/2021): AHI 6 but severe at home AHI 6 but severe at home Dizziness and giddiness 05/26/2017 CAD (coronary artery disease) 05/26/2017 Overview (12/08/2021): elevated fulling pressure elevated fulling pressure Assessment & Plan (11/04/2022 1:59 PM CNC MECHANIC): -S/p CABG, continue aspirin, Brilinta and atorvastatin for secondary prevention. Assessment & Plan (11/03/2022 6:41 PM CNC MECHANIC): -S/p CABG, continue aspirin, Brilinta and atorvastatin for secondary prevention. Assessment & Plan (11/02/2022 7:29 PM CNC MECHANIC): -S/p CABG, continue aspirin, Brilinta and atorvastatin for secondary prevention. Assessment & Plan (11/01/2022 7:08 PM CNC MECHANIC): -S/p CABG, continue aspirin, Brilinta and atorvastatin for secondary prevention. Assessment & Plan (11/01/2022 5:11 AM CNC MECHANIC): -S/p CABG, continue aspirin, Brilinta and atorvastatin [...] Site/Laterality Comments CARDIAC DEFIBRILLATOR PLACEMENT 06/25/2017 Left Berry White ICD - Model # D140 CORONARY ARTERY BYPASS GRAFT 06/19/2017 RUVALCABA-LAD, SVG-Diag, SVG-PDA, endsoscopic vein harvest AK RPR ANOM CORONARY ARTERY PULM ART ORIGIN [...] on file Legal Sex Male 8:56 PM CNC MECHANIC Gender Identity Male 08/31/2020 8:23 PM CNC MECHANIC Sexual Orientation Straight 08/31/2020 8: 23 PM CNC MECHANIC Obstetrics History Last Filed Vital Signs Vital [...] Ibrahim RN Medical Devices Implanted Type Area Aqueduct And Reservoir Keeper Device Identifier Shelf Expiration Date Model / Serial / Lot [employer] Icd D140-07/05/2017 Implanted:07/05 (Quantity not on file) ICD Chest [employer] C.R.M. D140 / [id number] / [employer] Rv Lead 0293-07/05/2017 Implanted:07/05 (Quantity not on file) Lead Heart [employer] C.R.M. 0293 / [id number] / Stent Implanted:Qty: 3 Stent Chest [employer] Attune Cruciate Retain Cementless Knee Left 7 Component Femoral [id number] - [id number] Implanted:Qty: 1 on 08/09/2022 by Candido Ramirez MD at [facility] Left: Knee [employer] [id number] 10/18/2031 [id number] / / [id number] [employer] Attune Fb Tib Base Sz 6 Por [id number] - [id number] Implanted:Qty: 1 on 08/09/2022 by Candido Ramirez MD at [facility] Left: Knee [employer] 01/16/2032 [id number] / / [id number] [employer] Insert Attune Left Medial Stabilized Size 7 10mm [id number] - [id number] Implanted:Qty: 1 on 08/09/2022 by Candido Ramirez MD at [facility] Left: Knee [employer] 03/17/2030 [id number] / / [id number] [employer] Attune Fb Tib Base Sz 7 Por [id number] - [id number] Implanted:Qty: 1 on 02/06/2024 by Candido Ramirez MD at [facility] Right: Knee [employer] [id number] 01/16/2032 [id number] / / [id number] [employer] Attune Cruciate Retain Cementless Knee Right 7 Component Femoral [id number] - [id number] Implanted:Qty: 1 on 02/06/2024 by Candido Ramirez MD at [facility] Right: Knee [employer] [id number] 12/16/2032 [id number] / / [id number] [employer] Insert Attune Right Medial Stabilized Size 7 10mm [id number] - [id number] Implanted:Qty: 1 on 02/06/2024 by Candido Ramirez MD at [facility] Right: Knee [employer] [id number] 02/15/2031 [id number] / / [id number] Procedures Procedure Name Priority Date/Time Associated Diagnosis Comments EGFR Routine 02/10/2024 12:13 AM CDT HEMOGLOBIN A1C Routine 01/31/2024 10:17 AM CDT Preoperative testing LIPID PANEL STAT 11/01/2022 12:07 AM CNC MECHANIC from Last 3 Months or Most Recently [...] BLOOD ORDERABLES Final Result Performing Organization Address [facility] de Phone Number [facility] [place] [address] * (ABNORMAL) Hemoglobin A1c (01/31/2024 10:17 AM CDT) Hgb A1C 6.7(H) 4.0 - 5.6 % Estimated Average Glucose 146 mg/dL [facility] Comment: The ADA recommends reporting an [...] ORDERABLES Final Resul t Performing Organization Address [facility] de Phone Number [facility] [place] [address] * (ABNORMAL) Lipid panel (11/01/2022 12:07 AM CNC MECHANIC) Cholesterol 144 30 - 199 mg/dL [facility] Comment: Interpretive Data Ages < or [...] revised on 2018. Triglycerides 204(H) <=149 mg/dL [facility] Comment: Interpretive Data Ages < or [...] revised on 2018. HDL 37(L) >=40 mg/dL [facility] Comment: Interpretive Data Ages < or [...] on 2018. LDL, calculated 66 <=129 mg/dL [facility] Comment: Interpretive Data Ages < or [...] revised on 2018. Non-HDL Cholesterol 107 mg/dL [facility] Comment: Interpretive Data Ages < or [...] last revised on 2018. Chol/HDL ratio 4 [facility] Blood 11/01/2022 12:0 7 AM CNC MECHANIC 11/01/2022 12:18 AM CNC MECHANIC us Julio Acosta MD LAB BLOOD ORDERABLES Fin al Result [facility] [place] [address] from Last 3 Months or Most Recently Relevant to Health Maintenance Additional Health Concerns Active Problems Noted Date Diagnosed Date Initial Follow-Up Appointment 11/07/2022 Insurance [facility] Member Subscriber Plan / Payer (Ef fective 2016-Present) Name:Jeffery Bailey Relation to Subscriber:Self Name:Jeffery Bailey Payer ID:[id number] (NAIC) Group ID:Not on file Type:MEDICAID RISK OTHER Address: ATTN: CLAIMS DEPT [address] [facility] [place] [id number] Member Subscriber Plan / Payer (Ef fective 2016-Present) Name:Jeffery Bailey Relation to Subscriber:Self Name:Jeffery Bailey Payer ID:[id number] (NAIC) Group ID:Not on file Type:MEDICAID RISK OTHER Address: ATTN: CLAIMS DEPT [address] [facility] [place] [phone] Advance Directives For more information, please contact: [phone] * Full Code (Latest Code Status on File) Date Activated Date Inactivated Comments 02/06/2024 2:57 PM 02/10/2024 6:19 PM * Full Code Date Activated Date Inactivated Comments 11/01/2022 8:26 AM 11/04/2022 3:37 PM * Full Code Date Activated Date Inactivated Comments 08/09/2022 5:39 PM 08/10/2022 8:04 PM Care Teams Loom Fixer Apprentice Relationship Specialty Start Date End Date Jimmie Arias MD [address], [place] [id number] PCP - General Family Medicine 07/07/20
--- OUTSIDE RECORDS SUMMARY | 2025-05-29 09:14 | XMS_ITS | Clinical Summary ---
Author Organization [facility] Address [address] [place] [address] Care Team Providers Care Supervisor Wet Pour Name Role Phone Jimmie Arias MD Primary [...] Comments Blood Pressure 105/66 08/31/2023 3:15 PM BURGLAR ALARM OPERATOR Pulse 49 08/31/2023 3:29 PM BURGLAR ALARM OPERATOR Temperature 36.1 C (96.9 F) 08/31/2023 11:25 AM BURGLAR ALARM OPERATOR Respiratory Rate 15 08/31/2023 2:45 PM BURGLAR ALARM OPERATOR Oxygen Saturation 99% 08/31/2023 3:29 PM BURGLAR ALARM OPERATOR Inhaled Oxygen Concentration - - Weight 139.2 kg (306 lb 14.1 oz) 2022 11:19 AM BURGLAR ALARM OPERATOR Height 182.9 cm (6') 08/31/2023 11:19 AM BURGLAR ALARM OPERATOR Body Mass Index 41.62 08/31/2023 11:19 AM BURGLAR ALARM OPERATOR Plan of Treatment Health Maintenance Due Date [...] years 1-dose series) 2020 Influenza Immunization (#1) 2025 SARS-COV-2 Immunization (1 - season) 2025 Hepatitis B Immunization Aged Out No [...] Insurance MEDICAID [employer] Care Teams Supervisor Wet Pour Relationship Specialty Start Date End Date Jimmie Arias MD [address] [place] [address] PCP - General Pediatrics 05/31/22
--- OUTSIDE RECORDS SUMMARY | 2025-05-29 09:14 | XMS_ITS ---
Care Plan Created on: May 29, 2025 Jeffery Bailey : 1960 Sex: Male Author Organization [facility] [address] Address [address] [place] [address] Care Team Providers Care Insulation Nozzleman Name Role Phone Jimmie Arias MD Primary Care Provide r Active Problems Problem Noted Date Diagnosed Date Osteoarthritis of right knee , unspecified osteoarthritis type 02/06/2024 Primary osteoarthritis of right knee 01/03/2024 Fall 11/01/2022 Assessment & Plan (11/04/2022 1:57 PM DATABASE TESTER): See weakness Assessment & Plan (11/03/2022 6:40 PM DATABASE TESTER): See weakness Assessment & Plan (11/02/2022 7:26 PM DATABASE TESTER): See weakness Assessment & Plan (11/01/2022 7:07 PM DATABASE TESTER): See weakness Assessment & Plan (11/01/2022 5:10 AM DATABASE TESTER): -Likely secondary to deconditioning and obesity, will rule out organic causes with MRI spine. -Obtain vitamin B12, recent TSH wnl. -PT/OT eval, hold doxazosin due to fall risk. RENETTA (acute kidney injury) 11/01/2022 Assessment & Plan (11/04/2022 2:01 PM DATABASE TESTER): BL Cr 1.7s to 1.9. On arrival Cr was 1.89 and was up to 2.03. Torsemide was hold on 11/03. Today Cr is 1.65 Assessment & Plan (11/03/2022 6:43 PM DATABASE TESTER): BL Cr 1.7s to 1.9. On arrival Cr was 1.89. Yesterday Cr was 2.03. Pt is dry on exam. Hold torsemide. Strict I/O. Today Cr is 1.92 Assessment & Plan (11/02/2022 7:31 PM DATABASE TESTER): BL Cr 1.7s to 1.9. On arrival Cr was 1.89. Today is 2.03. Pt is dry on exam. Hold torsemide. Strict I/O. CTM Assessment & Plan (11/01/2022 7:07 PM DATABASE TESTER): BL Cr 1.7s to 1.9. - Cr is stable - CTM Assessment & Plan (11/01/2022 5:10 AM DATABASE TESTER): -Cr stable, continue to monitor. Vitamin D deficiency 11/01/2022 Assessment & Plan (11/04/2022 1:56 PM DATABASE TESTER): vitamin D deficiency with D-25OH level of 14 on 07/04/22. - Start ergocalciferol weekly x 12 weeks Assessment & Plan (11/03/2022 6:33 PM DATABASE TESTER): vitamin D deficiency with D-25OH level of 14 on 07/04/22. - Start ergocalciferol weekly Assessment & Plan (11/02/2022 7:25 PM DATABASE TESTER): vitamin D deficiency with D-25OH level of 14 on 07/04/22. - Start ergocalciferol weekly Assessment & Plan (11/01/2022 7:05 PM DATABASE TESTER): vitamin D deficiency with D-25OH level of 14 on 07/04/22. - Start ergocalciferol weekly Assessment & Plan (11/01/2022 5:13 AM DATABASE TESTER): -Patient with prior vitamin D deficiency with D-25OH level of 14 on 07/04/22. -Obtain repeat vitamin D level. Weakness 11/01/2022 Assessment & Plan (11/04/2022 1:59 PM DATABASE TESTER): LE weakness since left TKA on 08/09. [...] OT Assessment & Plan (11/03/2022 6:39 PM DATABASE TESTER): LE weakness since left TKA on 08/09. [...] aware. Assessment & Plan (11/02/2022 7:32 PM DATABASE TESTER): LE weakness since left TKA on 08/09. [...] aware. Assessment & Plan (11/01/2022 7:03 PM DATABASE TESTER): LE weakness since left TKA on 08/09. [...] 11/01/2022 Assessment & Plan (11/04/2022 1:57 PM DATABASE TESTER): C/w coreg. Cr improve and torsemide was restarted. Assessment & Plan (11/03/2022 6:40 PM DATABASE TESTER): C/w coreg. Hold torsemide due to RENETTA Assessment & Plan (11/02/2022 7:26 PM DATABASE TESTER): C/w coreg. Hold torsemide due to RENETTA Assessment & Plan (11/01/2022 7:06 PM DATABASE TESTER): C/w coreg and torsemide Knee pain 08/09/2022 Primary osteoarthritis of left knee 05/24/2022 Overview (05/24/2022): Added automatically from request for surgery [id number] ICD (implantable cardioverter-defibrillator) in place 01/15/2021 Overview (12/20/2021): Last Assessment & Plan: Latitude WNL in August. Assessment & Plan (11/03/2022 6:40 PM DATABASE TESTER): EP is on board regarding MRI Assessment & Plan (11/02/2022 7:25 PM DATABASE TESTER): Plan is spine MRI. EP is on board Assessment & Plan (11/01/2022 7:06 PM DATABASE TESTER): Plan is spine MRI. EP consult. Acute right heart failure 10/23/2020 Morbid obesity ([facility]) 09/03/2020 Assessment & Plan (11/04/2022 1:56 PM DATABASE TESTER): . Assessment & Plan (11/03/2022 6:40 PM DATABASE TESTER): . Assessment & Plan (11/02/2022 7:25 PM DATABASE TESTER): . Assessment & Plan (11/01/2022 7:05 PM DATABASE TESTER): . Severe obesity 05/24/2019 Primary osteoarthritis of [...] GDMT. Assessment & Plan (11/04/2022 1:58 PM DATABASE TESTER): -Chronic without acute exacerbation, s/p ICD. [facility]. -Continue home GDMT with Entresto, Coreg and Jardiance. -Is euvolemic. Because increase Cr, torsemide 20mg daily was hold om 11/04. Cr improve and today Torsemide was restarted. - Strict I/O Assessment & Plan (11/03/2022 6:41 PM DATABASE TESTER): -Chronic without acute exacerbation, s/p ICD. [facility] with [facility]. -Continue home GDMT with Entresto, Coreg and Jardiance. -Is euvolemic. Because increase Cr, torsemide 20mg daily was hold. - Strict I/O Assessment & Plan (11/02/2022 7:31 PM DATABASE TESTER): -Chronic without acute exacerbation, s/p ICD. Patient follows with [facility]. -Continue home GDMT with Entresto, Coreg and Jardiance. -Is euvolemic. Because increase Cr, torsemide 20mg daily was hold. - Strict I/O Assessment & Plan (11/01/2022 7:07 PM DATABASE TESTER): -Chronic without acute exacerbation, s/p ICD. Patient follows with [facility]. -Continue home GDMT with Entresto, Coreg and Jardiance. -Continue diuresis with torsemide 20mg daily. Assessment & Plan (11/01/2022 5:08 AM DATABASE TESTER): -Chronic without acute exacerbation, s/p ICD. Patient follows with [facility] cardiology. -Continue home GDMT with Entresto, Coreg and Jardiance. -Continue diuresis with torsemide 20mg daily. Anxiety disorder 07/26/2017 Assessment & Plan (11/04/2022 1:59 PM DATABASE TESTER): -Continue home Wellbutrin. Assessment & Plan (11/03/2022 6:42 PM DATABASE TESTER): -Continue home Wellbutrin. Assessment & Plan (11/02/2022 7:29 PM DATABASE TESTER): -Continue home Wellbutrin. Assessment & Plan (11/01/2022 7:08 PM DATABASE TESTER): -Continue home Wellbutrin. Assessment & Plan (11/01/2022 5:06 AM DATABASE TESTER): -Continue home Wellbutrin. Presence of coronary angioplasty [...] and Coreg. Atherosclerotic heart diseas e of [place] coronary artery with other forms of angina pectoris 05/30/2017 Coronary atherosclerosis 05/30/2017 Dependence on other enabling machines and device s 05/26/2017 Overview (12/08/2021): AHI 6 but severe at home AHI 6 but severe at home Dizziness and giddiness 05/26/2017 CAD (coronary artery disease) 05/26/2017 Overview (12/08/2021): elevated fulling pressure elevated fulling pressure Assessment & Plan (11/04/2022 1:59 PM DATABASE TESTER): -S/p CABG, continue aspirin, Brilinta and atorvastatin for secondary prevention. Assessment & Plan (11/03/2022 6:41 PM DATABASE TESTER): -S/p CABG, continue aspirin, Brilinta and atorvastatin for secondary prevention. Assessment & Plan (11/02/2022 7:29 PM DATABASE TESTER): -S/p CABG, continue aspirin, Brilinta and atorvastatin for secondary prevention. Assessment & Plan (11/01/2022 7:08 PM DATABASE TESTER): -S/p CABG, continue aspirin, Brilinta and atorvastatin for secondary prevention. Assessment & Plan (11/01/2022 5:11 AM DATABASE TESTER): -S/p CABG, continue aspirin, Brilinta and atorvastatin [...]
--- OUTSIDE RECORDS SUMMARY | 2025-05-29 09:14 | XMS_ITS | Clinical Summary ---
Author Organization [facility] Address [address] [place] [id number] Phone Care Team Providers Care Package Delivery Driver Name Role Phone Jimmie Arias MD Primary Care Provider [phone] Allergies Active Allergy Reactions Criticality Noted Date [...] (#1) 2025 Insurance [employer] Care Teams Package Delivery Driver Relationship Specialty Start Date End Date Jimmie Arias MD [address] [place] [id number] PCP - General Internal Medicine 04/19/20
[2025-05-29 09:22] LABS: Hemoglobin A1C 6.7 % (<5.7)
[2025-05-29 09:29] LABS: Alanine Aminotransferase 30 U/L (6-50); Albumin Level 4.0 g/dL (3.5-5.1); Alkaline Phosphatase 111 U/L (38-126); Anion Gap 12 mmol/L (4-12); Aspartate Amino Transferase 33 U/L (17-59); Bilirubin,Total 0.8 mg/dL (0.2-1.3); Blood Urea Nitrogen 36 mg/dL (9-20); Calcium 9.5 mg/dL (8.4-10.2); Carbon Dioxide 29 mmol/L (22-30); Chloride 103 mmol/L (98-107); Estimated Glomerular Filt Rate 31; Glucose 114 mg/dL (65-110); Osmolality Calculated 307 mOsm/kg (285-295); Potassium 5.2 mmol/L (3.4-5.0); Sodium 144 mmol/L (137-145); Total Protein 7.4 g/dL (6.3-8.2)
== END 2025-05-29 08:42 | disposition home or self-care (01) ==
PROVIDERS: PCP Family Medicine; Visit Provider Family Medicine
DX: E11.40 Type 2 diabetes mellitus with diabetic neuropathy, unspecified (principal)
CPT/HCPCS: 36415; 80053; 83036; 85027